=== PATIENT | female | born 1980 | race Caucasian/White ===

== ENCOUNTER → 2017-08-07 14:25 | Outpatient (CLI) | payer MEDICAID, SELFPAY ==
[2017-08-13 11:49] LABS: HPV Reflexed? NOT INDICATED
== END ==
PROVIDERS: Family Provider Nurse Practitioner Women's Health; PCP Nurse Practitioner Women's Health; Visit Provider Nurse Practitioner Women's Health
DX: Z12.4 Encounter for screening for malignant neoplasm of cervix (principal)
CPT/HCPCS: 88175; G0145

== ENCOUNTER 2018-07-15 12:04 | Emergency (ER) | payer BC, MEDICAID, SELFPAY ==
[2018-07-15 12:05] VITALS: BP 127/81; PULSE 86; RESP 18; TEMP 36.6; O2SAT 99; BMI 32.4
--- NOTE | 2018-07-15 12:15 | ED.VISSUMM ---
- ER Visit Summary Date of Service: 07/15/18 Chief Complaint: Rectal bleeding History of Present Illness: The patient is a 38 F with history of insulin-dependent diabetes presents to the emergency department for rectal bleeding. Patient states yesterday, when she moved her bowels, she noted some bright red blood mixed with the stool. She states she also noticed when she wiped. And again today. She does have a history of hemorrhoids. She denies any abdominal pain. She does take a baby aspirin. She denies any nausea or vomiting. She denies any weakness or lightheadedness. She is a poorly controlled diabetic. She states that her blood sugars normally run in the 300s. 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 The patient does have multiple external hemorrhoids with stigmata of recent bleeding. There is no evidence of abscess. There is no active bleeding. Abdomen was soft and nontender. Screening labs were obtained. Patient's hemoglobin is 14.7. She has no evidence of acute blood loss anemia. She was hyperglycemic, but states this is about her baseline. At this time, I do not see indication for inpatient evaluation as the patient is otherwise a symptomatic and has evidence of recently bleeding hemorrhoids. She will continue her local hemorrhoid treatment is now on a stool softener. She was counseled on concerning symptoms and reasons to return. She will be discharged home. Treatment Plan: [] Disposition: Discharge Impression: 1. External hemorrhoids with recent bleeding This note was generated with [employer] dictation software. It may contain incorrect words, spelling, and punctuation that were not noted in review of the chart prior to signing ED Disposition - Plan for ED Patient: Instructions: ED Hematochezia Stable Prescriptions: Docusate Sodium [Colace] 100 mg PO DAILY #20 cap Referrals: Jodie Ojeda NP-C [Nurse Practitioner] -
[2018-07-15 12:38] LABS: Absolute Lymphocyte Count 1.49 X10^3/ul (0.83-4.51); Absolute Neutrophil Count 3.2 X10^3/uL (2.0-7.7); Basophil# 0.03 X10^3/uL; Basophil% 0.6 % (0-1); Eosinophil# 0.11 X10^3/uL; Eosinophils% 2.1 % (0-5); Hematocrit 44.3 % (37-47); Hemoglobin 14.7 g/dl (12.0-15.0); Lymphocyte # 1.49 X10^3/ul (4.0); Lymphocyte % 28.1 % (19-41); Mean Corp Hgb Conc 33.2 g/gl (32-36); Mean Corpuscular Hgb 30.7 pg (27.0-32.0); Mean Corpuscular Volume 92.5 fL (81-99); Mean Platelet Vol. 11.6 fl (6.2-12.0); Monocyte# 0.43 X10^3/uL; Monocyte% 8.1 % (0-10); Neutrophil # 3.23 X10^3/uL (2.7-7.7); Neutrophil % 60.7 % (47-70); Platelet Count 280 K/mm3 (150-450); RBC Distribution Width CV 12.7 % (11.6-14.6); RBC Distribution Width SD 42.3 fl (35.1-43.9); Red Blood Count 4.79 M/mm3 (4.2-5.4); White Blood Count 5.3 K/mm3 (4.4-11.0)
[2018-07-15 12:39] LABS: POSITIVE COUNT NO; POSITIVE DIFFERENTIAL NO; POSITIVE MORPHOLOGY NO
[2018-07-15 12:55] LABS: ALB/GLOB Ratio 0.7 RATIO (0.9-2.4); AST(SGOT) 28 U/L (15-37); Alanine Aminotransfer ALT/SGPT 36 U/L (13-56); Alkaline Phosphatase 99 U/L (45-117); Anion Gap 8 (5-15); BUN 10 mg/dL (7-18); BUN/Creat Ratio 14.9 RATIO (10-20); Calcium,Total 8.3 mg/dL (8.5-10.1); Chloride 98 mmol/L (98-107); Creatinine, Serum 0.67 mg/dL (0.55-1.02); EST Glomerular Filtration Rate 103 mL/min (>60); Est Glom Filt Rate - Afr Amer 125 mL/min (>60); Estimated Creatinine Clearance 104.49 ml/min; Globulin 4.1 g/dL (2.2-4.2); Glucose 361 mg/dL (74-106); Potassium 4.2 mmol/L (3.5-5.1); Protein, Total 7.1 g/dL (6.4-8.2); Sodium Level 136 mmol/L (136-145)
[2018-07-15] MEDS: 0.9% Normal Saline 1,000 ML 1000 ML IV (12:58)
--- NOTE | 2018-07-15 13:43 | ED.RN ---
IV DC'ED, CATHETER INTACT, SMALL GAUZE DRESSING PLACED. DISCHARGE INSTRUCTIONS GIVEN TO AND REVIEWED WITH PATIENT, PATIENT DENIES QUESTIONS OR CONCERNS AND VOICES UNDERSTANDING OF DISCHARGE INSTRUCTIONS. PT AMBULATES OUT OF ROOM WITHOUT DIFFICULTY.
== END 2018-07-15 13:44 | disposition home or self-care (01) ==
LOC: ED 12:38
PROVIDERS: Emergency Provider Emergency Medicine; Family Provider Family Medicine; PCP Family Medicine
DX: K64.4 Residual hemorrhoidal skin tags (principal); E11.9 Type 2 diabetes mellitus without complications; Z79.4 Long term (current) use of insulin; Z79.82 Long term (current) use of aspirin
CPT/HCPCS: 80053; 85025; 96360; 99283; J7030; A4216

== ENCOUNTER 2018-08-26 17:15 | Emergency (ER) | payer BC, MEDICAID, SELFPAY ==
[2018-08-26 17:16] VITALS: BP 140/81; PULSE 105; RESP 15; TEMP 37.2; O2SAT 98; BMI 31.9
--- NOTE | 2018-08-26 17:35 | ED.VISSUMM ---
- ER Visit Summary Date of Service: 08/26/18 Chief Complaint: Constipation, back pain, high blood sugar History of Present Illness: The patient is a 38 F with a 3 or 4-day history of low back pain, worse when she bends forward. She denies any known injury. She is also complaining of constipation and states she is only passing small pellets of stool. She has had similar problems in the past. She is currently taking stool softeners without improvement. She was seen in urgent care earlier today and given nitrofurantoin for a UTI. She is only had one dose. She denies dysuria or frequency. She states her blood sugars have been running high, around 360. She typically runs between 200 and 300. Physical Examination: Vital signs unremarkable. Patient sitting upright in bed no acute distress. Head neck examination normal. Heart is regular rate and rhythm. Lung sounds clear. Abdomen is soft with mild suprapubic tenderness. No guarding or rebound. Back examination was mild tenderness in the lumbar paraspinals. Neuro exam is normal. Test Results: CBC reveals normal white count. Hemoglobin is concentrated at 15.8. Chemistry studies reveal glucose of 385, sodium of 129, chloride of 95. Corrected sodium because of her blood sugar is 133. Urinalysis shows greater than 100 white cells with 0 bacteria and 50 ketones. There is significant glucose noted in her urine. KUB shows no bowel obstruction. There is evidence of constipation. Emergency Department Course and Treatment: Patient was given 2 L of IV fluid along with Toradol. Repeat blood sugar is currently 309. Patient will continue her diabetes regimen at home. She will continue the nitrofurantoin she was given at urgent care. She will be written for mag citrate to treat her constipation. Treatment Plan: [] Disposition: Discharge Impression: 1. Constipation 2. Hyperglycemia This note was generated with [employer] dictation software. It may contain incorrect words, spelling, and punctuation that were not noted in review of the chart prior to signing ED Disposition - Plan for ED Patient: Referrals: Fernando Jenkins MD [Primary Care Provider] -
[2018-08-26] MEDS: Ketorolac 30 MG/ML Syringe IV (17:53)
[2018-08-26] MEDS: 0.9% Normal Saline 1,000 ML 1000 ML IV (17:53)
[2018-08-26 17:58] LABS: Bacteria 0 SEEN /hpf (None Seen); Mucous, Urine 0 SEEN /hpf (<or=2+); Squamous Epithelial Cells - UA 0 SEEN /hpf (5-10)
[2018-08-26 18:02] LABS: Color, Urine Yellow (Yellow); Glucose, Dipstick 1000 mg/dl (Normal); Ketone-Dipstick 50 mg/dl (Negative); Leukocyte Esterase-Dipstick 500 /ul (Negative); Nitrite-Dipstick Negative (Negative); Occult Blood-Urine 150 /ul (Negative); Protein-Dipstick 30 mg/dl (Negative); Specific Gravity, Urine 1.005 (1.002-1.030); Urine Bilirubin Dipstick Negative (Negative); Urine Clarity Cloudy (Clear); Urine Urobilinogen Normal (Normal)
--- NOTE | 2018-08-26 18:03 | RAD_ITS ---
STUDY: X-RAY - ABDOMEN/PELVIS REASON FOR EXAM: Female, 38 years old. Abdominal pain TECHNIQUE: Two AP supine views of the abdomen and pelvis. COMPARISON: None. FINDINGS: There is no bowel obstruction. There is a large amount of stool in the colon, consistent with constipation. There are surgical clips noted in the pelvis which is likely due to prior tubal ligation. The visualized osseous structures are within normal limits. RAD/Abdomen Single View IMPRESSION: No bowel obstruction. Constipation. Electronically Signed: Marek Benson, at 18:29 EDT Tel , Service support ,
[2018-08-26 18:10] LABS: Absolute Lymphocyte Count 0.58 X10^3/ul (0.83-4.51); Absolute Neutrophil Count 7.1 X10^3/uL (2.0-7.7); Basophil# 0.02 X10^3/uL; Basophil% 0.2 % (0-1); Eosinophil# 0.02 X10^3/uL; Eosinophils% 0.2 % (0-5); Hematocrit 46.7 % (37-47); Hemoglobin 15.8 g/dl (12.0-15.0); Lymphocyte # 0.58 X10^3/ul (4.0); Lymphocyte % 6.8 % (19-41); Mean Corp Hgb Conc 33.8 g/gl (32-36); Mean Corpuscular Hgb 31.4 pg (27.0-32.0); Mean Corpuscular Volume 92.8 fL (81-99); Mean Platelet Vol. 11.9 fl (6.2-12.0); Monocyte# 0.79 X10^3/uL; Monocyte% 9.3 % (0-10); Neutrophil # 7.06 X10^3/uL (2.7-7.7); Neutrophil % 83.3 % (47-70); Platelet Count 307 K/mm3 (150-450); RBC Distribution Width CV 13.1 % (11.6-14.6); RBC Distribution Width SD 43.5 fl (35.1-43.9); Red Blood Count 5.03 M/mm3 (4.2-5.4); White Blood Count 8.5 K/mm3 (4.4-11.0)
[2018-08-26 18:11] LABS: Differential Indicated SCAN CRITERIA MET; POSITIVE COUNT NO; POSITIVE DIFFERENTIAL YES; POSITIVE MORPHOLOGY NO
[2018-08-26 18:16] LABS: Red Blood Cells-Urine 0-5 SEEN /hpf (0-5); White Blood Cells >100 SEEN /hpf (0-5)
[2018-08-26 18:19] LABS: Anion Gap 5 (5-15); BUN 7 mg/dL (7-18); BUN/Creat Ratio 8.5 RATIO (10-20); Chloride 95 mmol/L (98-107); Creatinine, Serum 0.82 mg/dL (0.55-1.02); EST Glomerular Filtration Rate 82 mL/min (>60); Est Glom Filt Rate - Afr Amer 99 mL/min (>60); Estimated Creatinine Clearance 85.37 ml/min; Glucose 385 mg/dL (74-106); Sodium Level 129 mmol/L (136-145)
[2018-08-26 18:31] LABS: Anisocytosis RARE; Macrocytosis RARE; Platelet Estimate ADEQUATE (ADEQ)
[2018-08-26] MEDS: 0.9% Normal Saline 1,000 ML 999 ML IV (19:19)
[2018-08-26 20:16] LABS: Bedside Glucose 309 mg/dL (70-110)
--- NOTE | 2018-08-26 20:20 | ED.DEP ---
ED Disposition - Plan for ED Patient: Disposition: Home or Assisted Living Instructions: ED Constipation, ED Hyperglycemia Diabetic Prescriptions: Magnesium Citrate [Citrate Of Magnesia] 150 ml PO Q6H PRN PRN #300 ml PRN Reason: Constipation Referrals: Fernando Jenkins MD [Primary Care Provider] - 1 Week
[2018-08-26 20:39] VITALS: PULSE 102; RESP 16; O2SAT 94
== END 2018-08-26 20:39 | disposition home or self-care (01) ==
PROVIDERS: Emergency Provider Emergency Medicine; Family Provider Family Medicine; PCP Family Medicine
DX: K59.00 Constipation, unspecified (principal); E11.65 Type 2 diabetes mellitus with hyperglycemia; Z79.4 Long term (current) use of insulin; N39.0 Urinary tract infection, site not specified
CPT/HCPCS: 74018; 80048; 81001; 82962; 85025; 87086; 87088; 96361; 96374; 99284; J7030

== ENCOUNTER 2018-09-17 19:09 | Emergency (ER) | payer BC, MEDICAID, SELFPAY ==
[2018-09-17 19:09] VITALS: BP 114/77; PULSE 109; RESP 16; TEMP 36.1; O2SAT 98; BMI 31.1
--- NOTE | 2018-09-17 19:33 | CT_ITS ---
STUDY: CT ABDOMEN AND PELVIS WITH CONTRAST REASON FOR EXAM: Female, 38 years old. Nausea, vomiting, diarrhea and abdominal pain. Prior surgical history of cholecystectomy and 3 C-sections. RADIATION DOSAGE (If Supplied By Facility): CTDIvol = ( 19.82 ) mGy, DLP = ( 1307.55 ) mGycm TECHNIQUE: Transaxial images were obtained from the dome of the diaphragm to the symphysis pubis without oral contrast. 100ml IV Isovue 300 was administered. Sagittal and coronal images were reconstructed. Individualized dose optimization techniques were used for this CT. COMPARISON: None. FINDINGS: Minimal bibasilar atelectasis. The visualized portions of the heart are within normal limits. Normal liver. Gallbladder absent. There are multiple benign calcified granulomata of the spleen. Normal pancreas. Normal bilateral adrenal glands. Normal right kidney. Subcentimeter cyst of the lower pole of the left kidney. Otherwise normal left kidney. Normal visualized stomach. Normal small intestine. Normal colon. The appendix is visualized and appears normal. Normal abdominal aorta. Normal inferior vena cava. Normal retroperitoneum. Nondistended urinary bladder. Status post tubal ligation. Follicular cysts of the ovaries bilaterally. Small fatty umbilical hernia. There are diffuse degenerative changes of the visualized lumbar spine. CT/Abdomen/Pelvis W IV Cont ONLY IMPRESSION: No acute bowel related findings. Negative for evidence of bowel perforation, obstruction or inflammatory bowel changes. A normal appendix is identified. Status post tubal ligation without abnormality of the uterus. Follicular cysts of the ovaries bilaterally. Negative for adnexal mass or free fluid. Simple cyst of the left kidney. Otherwise normal left kidney and right kidney. Status post cholecystectomy without dilatation of the common bile duct or intrahepatic bile ducts. Unremarkable liver and pancreas. Calcified granuloma but normal sized spleen. Electronically Signed: Maribel Mann MD at 21:06 EDT , Service support ,
--- NOTE | 2018-09-17 19:36 | ED.DCSUM_ITS ---
- ER Visit Summary Date of Service: 09/17/18 Chief Complaint: Cough, abdominal pain and diarrhea History of Present Illness: The patient is a 38 F who presents for 3 weeks of a cough, now with 2 weeks of diarrhea and posttussive emesis. Patient presents today for these complaints because she is also been having abdominal pain, went to urgent care because of the cough, and was referred to the emergency department. Patient states she has had intermittent abdominal pain for months. It is mainly in the left lower quadrant some in the right lower quadrant. Patient has been coughing for 3 weeks with now posttussive emesis. Patient has no vomiting without coughing first. She is also been having diarrhea for 2 weeks. Patient denies any fever, chest pain, shortness of breath, or other symptoms. No urinary symptoms. Patient has diabetes and states her blood sugars normally in the 300s and poorly controlled. She has history of cholecystectomy and delivery x3. She denies smoking tobacco. She has been using [id number] antitussives without relief. Physical Examination: Vital signs: afebrile, hemodynamically stable, no hypoxia on room air General: well nourished, well developed, in no distress Skin: warm, dry, no rash, no pallor HEENT: normocephalic and atraumatic; PERRL, EOMI, moist mucous membranes Cardiovascular: regular rate and rhythm without murmurs, no peripheral edema, 2+ pulses all distal extremities Respiratory: No increased work of breathing, lungs are clear to auscultation bilaterally, no rales, rhonchi or wheezing Abdominal: Abdomen is soft, tender in the left lower quadrant with normoactive bowel sounds, no guarding or rebound, no masses MSK: Moves all extremities, no deformities, normal strength Neuro: Awake and alert, oriented ?4. No facial droop, sensation and motor function intact and symmetric Test Results: Abnormal Lab Results 09/17/18 09/17/18 09/17/18 19:50 19:55 19:55 WBC 11.4 H RBC 4.62 Hgb 14.2 Hct 41.7 MCV 90.3 MCH 30.7 MCHC 34.1 RDW 13.3 RDW Differential 43.6 Plt Count 435 MPV 10.7 Immature Gran % (Auto) 0.300 Neut % (Auto) 87.8 H Lymph % (Auto) 6.5 L [place] % (Auto) 4.9 Eos % (Auto) 0.3 Baso % (Auto) 0.2 Absolute Neuts (auto) 10.0 H Absolute Lymphs (auto) 0.74 L Total Counted Not Reportable Sodium 133 L Potassium 3.7 Chloride 94 L Carbon Dioxide 33.0 H Anion Gap 6 BUN 6 L Creatinine 0.77 Estim Creat Clear Calc 90.92 Est GFR (MDRD) Af Amer 107 Est GFR (MDRD) Non-Af 89 BUN/Creatinine Ratio 7.8 L Glucose 406 H Calcium 8.9 Total Bilirubin 0.70 AST 16 ALT 20 Alkaline Phosphatase 122 H Total Protein 7.9 Albumin 3.0 L Globulin 4.9 H Albumin/Globulin Ratio 0.6 L Serum , Qual Urine Color Urine Clarity Urine pH Ur Specific [place] Urine Protein Urine Glucose (UA) Urine Ketones Urine Occult Blood Urine Nitrite Urine Bilirubin Urine Urobilinogen Ur Leukocyte Esterase Urine RBC Urine WBC Ur Squamous Epith Cells Urine Bacteria Urine Mucus POC Glucose 432 H 09/17/18 09/17/18 09/17/18 19:55 20:30 22:33 WBC RBC Hgb Hct MCV MCH MCHC RDW RDW Differential Plt Count MPV Immature Gran % (Auto) Neut % (Auto) Lymph % (Auto) [place] % (Auto) Eos % (Auto) Baso % (Auto) Absolute Neuts (auto) Absolute Lymphs (auto) Total Counted Sodium Potassium Chloride Carbon Dioxide Anion Gap BUN Creatinine Estim Creat Clear Calc Est GFR (MDRD) Af Amer Est GFR (MDRD) Non-Af BUN/Creatinine Ratio Glucose Calcium Total Bilirubin AST ALT Alkaline Phosphatase Total Protein Albumin Globulin Albumin/Globulin Ratio Serum , Qual NEGATIVE Urine Color Yellow Urine Clarity Clear Urine pH 6.0 Ur Specific [place] 1.010 Urine Protein Negative Urine Glucose (UA) 1000 H Urine Ketones Negative Urine Occult Blood 10 H Urine Nitrite Negative Urine Bilirubin Negative Urine Urobilinogen Normal Ur Leukocyte Esterase 25 H Urine RBC 0 SEEN Urine WBC 10-25 SEEN Ur Squamous Epith Cells 0-5 SEEN Urine Bacteria RARE Urine Mucus 0 SEEN POC Glucose 352 H Clinical Impression(s) from Imaging Studies Abdomen/Pelvis CT 09/17/18 19:33 IMPRESSION: No acute bowel related findings. Negative for evidence of bowel perforation, obstruction or inflammatory bowel changes. A normal appendix is identified. Status post tubal ligation without abnormality of the uterus. Follicular cysts of the ovaries bilaterally. Negative for adnexal mass or free fluid. Simple cyst of the left kidney. Otherwise normal left kidney and right kidney. Status post cholecystectomy without dilatation of the common bile duct or intrahepatic bile ducts. Unremarkable liver and pancreas. Calcified granuloma but normal sized spleen. Electronically Signed: Maribel Mann MD at 21:06 EDT , Service support , Chest X-Ray 09/17/18 20:53 IMPRESSION: Normal x-ray examination of the chest. Electronically Signed: Maribel Mann MD at 21:07 EDT , Service support , Medications Given Discontinued Medications Sodium Chloride () 1,000 mls @ 1,000 mls/hr IV .Q1H ONE Stop: 09/17/18 20:32 Last Admin: 09/17/18 20:21 Dose: 1,000 mls/hr Insulin Human Lispro (Humalog Kwikpen (Bkc)) 10 unit SC X1 ONE Stop: 09/17/18 21:30 Last Admin: 09/17/18 22:04 Dose: 10 units Ketorolac Tromethamine (Toradol) 15 mg IV X1 ONE Stop: 09/17/18 19:34 Last Admin: 09/17/18 20:21 Dose: 15 mg Ondansetron HCl (Zofran) 4 mg IV X1 ONE Stop: 09/17/18 19:34 Last Admin: 09/17/18 20:21 Dose: 4 mg Emergency Department Course and Treatment: Because of patient's complaints and the fact she is diabetic, workup was performed to make sure this is not a hyperglycemic crisis. Patient has not had a CT of the abdomen and pelvis here to evaluate for diverticulitis or other acute process, thus one was ordered. Chest x-ray to look for pneumonia. Patient was given IV fluids, Zofran and Toradol for symptom relief. Patient's labs were remarkable only for elevated glucose of 406. Patient had no decreased bicarb or increased anion gap that would be concerning for DKA. Urine was negative for ketones. negative. CT of the abdomen and pelvis showed no acute process to explain her abdominal pain. Patient was given subcutaneous insulin for her hyperglycemia and had improvement of her blood sugar on reevaluation. Patient had improvement of her symptoms with the pain and nausea medications. Patient was counseled to work on better glycemic control, as her chronically high blood sugars will cause serious health consequences down the road for her. Patient states she will try. Patient was discharged home in improved condition. Treatment Plan: [] Disposition: [] Impression: Abdominal pain, hyperglycemia, poorly controlled diabetes This note was generated with [employer] dictation software. It may contain incorrect words, spelling, and punctuation that were not noted in review of the chart prior to signing ED Disposition - Plan for ED Patient: Disposition: Home or Assisted Living Instructions: ED Abdominal Pain Unkn Cause, ED Hyperglycemia Diabetic Prescriptions: Benzonatate [Tessalon Perle] 100 mg PO 4X/DAY PRN PRN #15 cap PRN Reason: Cough Referrals: Fernando Jenkins MD [Primary Care Provider] - 3-5 Days if not improving Additional Instructions: Please take your insulin as directed by your doctor to help control your diabetes. If you have any worsening of your condition or any new concerning symptoms, please return immediately to the emergency department for another evaluation.
[2018-09-17 19:56] LABS: Bedside Glucose 432 mg/dL (70-110)
[2018-09-17 20:09] LABS: Absolute Lymphocyte Count 0.74 X10^3/ul (0.83-4.51); Basophil# 0.02 X10^3/uL; Basophil% 0.2 % (0-1); Eosinophil# 0.03 X10^3/uL; Eosinophils% 0.3 % (0-5); Hematocrit 41.7 % (37-47); Hemoglobin 14.2 g/dl (12.0-15.0); Lymphocyte # 0.74 X10^3/ul (4.0); Lymphocyte % 6.5 % (19-41); Mean Corp Hgb Conc 34.1 g/gl (32-36); Mean Corpuscular Hgb 30.7 pg (27.0-32.0); Mean Corpuscular Volume 90.3 fL (81-99); Mean Platelet Vol. 10.7 fl (6.2-12.0); Monocyte# 0.56 X10^3/uL; Monocyte% 4.9 % (0-10); Neutrophil # 9.99 X10^3/uL (2.7-7.7); Neutrophil % 87.8 % (47-70); Platelet Count 435 K/mm3 (150-450); RBC Distribution Width CV 13.3 % (11.6-14.6); RBC Distribution Width SD 43.6 fl (35.1-43.9); Red Blood Count 4.62 M/mm3 (4.2-5.4); White Blood Count 11.4 K/mm3 (4.4-11.0)
[2018-09-17 20:10] LABS: POSITIVE COUNT NO; POSITIVE DIFFERENTIAL NO; POSITIVE MORPHOLOGY NO
[2018-09-17] MEDS: 0.9% Normal Saline 1,000 ML 1000 ML IV (20:21)
[2018-09-17] MEDS: Ondansetron 4 MG/2 ML Vial IV (20:21)
[2018-09-17] MEDS: Ketorolac 30 MG/ML Syringe 15 MG IV (20:21)
[2018-09-17 20:23] LABS: ALB/GLOB Ratio 0.6 RATIO (0.9-2.4); AST(SGOT) 16 U/L (15-37); Alanine Aminotransfer ALT/SGPT 20 U/L (13-56); Alkaline Phosphatase 122 U/L (45-117); Anion Gap 6 (5-15); BUN 6 mg/dL (7-18); BUN/Creat Ratio 7.8 RATIO (10-20); Calcium,Total 8.9 mg/dL (8.5-10.1); Chloride 94 mmol/L (98-107); Creatinine, Serum 0.77 mg/dL (0.55-1.02); EST Glomerular Filtration Rate 89 mL/min (>60); Est Glom Filt Rate - Afr Amer 107 mL/min (>60); Estimated Creatinine Clearance 90.92 ml/min; Globulin 4.9 g/dL (2.2-4.2); Glucose 406 mg/dL (74-106); Potassium 3.7 mmol/L (3.5-5.1); Protein, Total 7.9 g/dL (6.4-8.2); Sodium Level 133 mmol/L (136-145)
[2018-09-17 20:25] LABS: Pregnancy, Serum, hCG Quali. NEGATIVE Negative (0-9 Nonpreg)
[2018-09-17 20:40] LABS: Mucous, Urine 0 SEEN /hpf (<or=2+); Red Blood Cells-Urine 0 SEEN /hpf (0-5)
--- NOTE | 2018-09-17 20:53 | RAD_ITS ---
STUDY: X-RAY CHEST REASON FOR EXAM: Female, 38 years old. Cough. TECHNIQUE: 2 views COMPARISON: None. FINDINGS: The lungs are clear and expanded. There is no demonstrated pleural abnormality. Normal size heart. Normal mediastinum and sharon. Normal visualized pulmonary arteries. Normal visualized aortic arch and descending thoracic aorta. Normal visualized thoracic spine. Normal visualized ribs, clavicles, and shoulders. There is no demonstrated abnormality of the visualized soft tissue structures of the upper abdomen. RAD/Chest PA and Lateral IMPRESSION: Normal x-ray examination of the chest. Electronically Signed: Maribel Mann MD at 21:07 EDT , Service support ,
[2018-09-17 21:17] LABS: Color, Urine Yellow (Yellow); Glucose, Dipstick 1000 mg/dl (Normal); Ketone-Dipstick Negative (Negative); Leukocyte Esterase-Dipstick 25 /ul (Negative); Nitrite-Dipstick Negative (Negative); Occult Blood-Urine 10 /ul (Negative); Protein-Dipstick Negative (Negative); Urine Bilirubin Dipstick Negative (Negative); Urine Clarity Clear (Clear); Urine Urobilinogen Normal (Normal)
[2018-09-17 21:38] LABS: White Blood Cells 10-25 SEEN /hpf (0-5)
[2018-09-17 21:39] LABS: Bacteria RARE /hpf (None Seen); Squamous Epithelial Cells - UA 0-5 SEEN /hpf (5-10)
[2018-09-17] MEDS: Insulin Lispro 100 UNIT/ML INSULN.PEN 10 UNIT SC (22:04)
[2018-09-17 22:11] VITALS: BP 124/79; PULSE 89; RESP 18; O2SAT 96
[2018-09-17 22:41] LABS: Bedside Glucose 352 mg/dL (70-110)
[2018-09-17 22:42] VITALS: BP 134/78; PULSE 87; RESP 16; O2SAT 97
== END 2018-09-17 22:43 | disposition home or self-care (01) ==
PROVIDERS: Emergency Provider Emergency Medicine; Family Provider Family Medicine; PCP Family Medicine
DX: R10.32 Left lower quadrant pain (principal); E10.65 Type 1 diabetes mellitus with hyperglycemia; Z79.4 Long term (current) use of insulin; Z79.84 Long term (current) use of oral hypoglycemic drugs; R05 Cough
CPT/HCPCS: 71046; 74177; 80053; 81001; 82962; 84703; 85025; 96361; 96374; 96375; 99283; J7030; Q9967; J2405

== ENCOUNTER 2019-05-22 22:58 | Emergency (ER) | payer BC, OTHER, MEDICAID, SELFPAY ==
[2019-05-22 23:00] VITALS: BP 112/74; PULSE 99; RESP 17; TEMP 36.5; O2SAT 97; BMI 32.9
[2019-05-22 23:16] LABS: Bedside Glucose 437 mg/dL (70-110)
--- NOTE | 2019-05-22 23:20 | ED.VIS.GEN ---
History of Present Illness Chief Complaint: Hyperglycemia Narrative: Patient is a 38-year-old female who family called EMS due to alcohol intoxication. She was drinking vodka with cranberry juice. She was noted to be hyperglycemic. Patient actually has no complaints at this time. She denies any nausea vomiting. Past Medical History - Allergies and Home Meds Allergies/Adverse Reactions: Allergies Sulfa (Sulfonamide Antibiotics) Allergy (Verified 05/22/19 23:06) Hives Primary Care Physician: Fernando Jenkins MD [Primary Care Provider] - Past Medical History: - - Insulin-dependent diabetes Smoking Status: Never smoker Review of Systems All systems negative except as indicated General: Denies: Fever Eyes: Denies: Visual changes - bilaterally ENT: Denies: Bilateral ear pain Cardiovascular: Denies: Chest pain Respiratory: Denies: Dyspnea Gastrointestinal: Denies: Nausea, Vomiting Musculoskeletal: Denies: Myalgias, Arthralgias Skin: Denies: Rash Neurological: Reports: - - Tingling in hands and feet related to peripheral neuropathy. Denies: Headache Allergy: Denies: Uticaria Physical Exam Vital Signs/Narrative: Vital Signs Temp Pulse Resp BP Pulse Ox 05/22/19 23:00 97.7 F L 99 17 112/74 97 Inital Vital Signs reviewed: Yes General: Well nourished, Well developed Head: Normocephalic Eyes: EOMI ENT: Moist mucous membranes Neck: Supple Cardiovascular: Regular rate, Regular rhythm Respiratory: No distress, CTA bilaterally Abdomen: Soft, Nontender, Nondistended Skin: Normal color Neurological: Alert Psychological: Normal affect Diagnostic/Tx/Re-eval Laboratory Results 05/22/19 05/22/19 05/23/19 23:04 23:29 00:27 Sodium 140 Potassium 3.8 Chloride 104 Carbon Dioxide 24.0 Anion Gap 12 BUN 9 Creatinine 0.73 Estim Creat Clear Calc 95.90 Est GFR (MDRD) Af Amer 114 Est GFR (MDRD) Non-Af 94 BUN/Creatinine Ratio 12.4 Glucose 463 H* Calcium 8.0 L POC Glucose 437 H 364 H - Medical Decision Making Patient initially had no complaints although she did later complain of nausea and was given Zofran. Initial glucose was 463. Patient was treated with IV fluids and subcutaneous insulin and on recheck is 306. At this point I do believe she can be safely discharged home. ED Disposition - Plan for ED Patient: Disposition: Home or Assisted Living Diagnosis: Alcohol intoxication, Diabetes mellitus with hyperglycemia Instructions: ED Diabetic Hyperglycemia, Alcohol Intoxication Referrals: Fernando Jenkins MD [Primary Care Provider] -
[2019-05-22] MEDS: 0.9% Normal Saline 1,000 ML 999 ML IV ×2 (23:35→23:55)
[2019-05-22] MEDS: Ondansetron 4 MG/2 ML Vial IV (23:55)
[2019-05-22 23:58] LABS: Anion Gap 12 (5-15); BUN 9 mg/dL (7-18); BUN/Creat Ratio 12.4 RATIO (10-20); Chloride 104 mmol/L (98-107); Creatinine, Serum 0.73 mg/dL (0.55-1.02); EST Glomerular Filtration Rate 94 mL/min (>60); Est Glom Filt Rate - Afr Amer 114 mL/min (>60); Potassium 3.8 mmol/L (3.5-5.1); Sodium Level 140 mmol/L (136-145)
[2019-05-23] LABS: Glucose 463 mg/dL (74-106)
[2019-05-23 00:35] LABS: Bedside Glucose 364 mg/dL (70-110)
[2019-05-23] MEDS: Insulin Lispro 100 UNIT/ML INSULN.PEN 12 UNIT SC (01:00)
[2019-05-23 01:55] VITALS: BP 113/82; PULSE 96; RESP 20; O2SAT 99
[2019-05-23 01:56] LABS: Bedside Glucose 304 mg/dL (70-110)
== END 2019-05-23 01:56 | disposition home or self-care (01) ==
PROVIDERS: Emergency Provider Emergency Medicine; Family Provider Family Medicine; PCP Family Medicine
DX: E11.65 Type 2 diabetes mellitus with hyperglycemia (principal); Y90.9 Presence of alcohol in blood, level not specified; F10.129 Alcohol abuse with intoxication, unspecified; Z79.4 Long term (current) use of insulin; Z79.84 Long term (current) use of oral hypoglycemic drugs
CPT/HCPCS: 80048; 82962; 96361; 96372; 96374; 99285; J7030; J2405

== ENCOUNTER 2019-08-20 00:13 | Emergency (ER) | payer OTHER, MEDICAID, SELFPAY ==
[2019-08-20 00:13] VITALS: BP 136/82; PULSE 109; RESP 18; TEMP 37.2; O2SAT 99; BMI 33.0
--- NOTE | 2019-08-20 00:21 | RAD_ITS ---
STUDY: X-RAY CHEST REASON FOR EXAM: Female, 39 years old. COUGH X 1 WEEK TECHNIQUE: PA and lateral COMPARISON: 09/17/2018 FINDINGS: The lungs are clear and expanded. There is no demonstrated pleural abnormality. Normal size heart. Normal mediastinum and sharon. Normal visualized pulmonary arteries. Normal visualized aortic arch and descending thoracic aorta. Normal visualized thoracic spine. Normal visualized ribs, clavicles, and shoulders. There is no demonstrated abnormality of the visualized soft tissue structures of the upper abdomen. RAD/Chest PA and Lateral IMPRESSION: Negative x-ray examination of the chest. Electronically Signed: Izaiah Collins, at 1:44 EDT Tel , Service support ,
[2019-08-20] MEDS: Albuterol 2.5 MG/3 ML VIAL.NEB. INHALATION (00:32)
[2019-08-20 00:36] VITALS: PULSE 115; RESP 18; O2SAT 100
[2019-08-20] MEDS: Ondansetron ODT 4 MG Tablet 8 MG PO (01:11)
[2019-08-20 01:20] LABS: Bedside Glucose 336 mg/dL (70-110)
--- NOTE | 2019-08-20 01:50 | ED.VISSUMM ---
- ER Visit Summary Date of Service: 08/20/19 Chief Complaint: Cough History of Present Illness: The patient is a 39 F who presents with a cough. Started a week ago. She has had nasal congestion. Her cough was productive but now it is better without production but she is still coughing. No fevers. She has felt sweaty. Her blood glucose was 414 at home. She is a type II diabetic. She did not get a flu shot this year. She is not a smoker. She tried sinus medications, DayQuil/NyQuil and Mucinex without any relief. She denies any sick contacts. No recent travel. Physical Examination: Vital signs reviewed. HEENT exam unremarkable. Heart is regular rate and rhythm without murmurs. Lungs are clear to auscultation. Abdomen is soft and nontender. Extremities reveal no edema. Skin exam normal. Neurologic exam normal. Test Results: Chest x-ray clear. BG [id number] Emergency Department Course and Treatment: Patient was given albuterol. She had some nausea after this so I gave her Zofran. I feel this is likely bronchitis. I will treat her with albuterol and a azithromycin at home. She will follow-up with her PCP. Treatment Plan: [] Disposition: Discharge Impression: Acute bronchitis, nausea This note was generated with [employer] dictation software. It may contain incorrect words, spelling, and punctuation that were not noted in review of the chart prior to signing ED Disposition - Plan for ED Patient: Disposition: Home or Assisted Living Instructions: BRONCHITIS, Antiobiotic Treatment (Adult) Prescriptions: Albuterol Inhaler [Ventolin Hfa] 1 - 2 puff INHALATION Q4H PRN PRN #1 inhaler PRN Reason: Wheezing Transmission Status: Pending to [id number] Azithromycin [Zithromax Z-Ariel] 250 mg PO UD #1 box Transmission Status: Pending to [id number] Referrals: Fernando Jenkins MD [Primary Care Provider] -
[2019-08-20 01:58] VITALS: BP 125/86; PULSE 95; RESP 16; O2SAT 96
== END 2019-08-20 02:01 | disposition home or self-care (01) ==
PROVIDERS: Emergency Provider Emergency Medicine; PCP Family Medicine
DX: J20.9 Acute bronchitis, unspecified (principal); R11.0 Nausea; E11.9 Type 2 diabetes mellitus without complications; Z79.4 Long term (current) use of insulin
CPT/HCPCS: 71046; 82962; 94640; 99282

== ENCOUNTER 2020-01-04 08:15 | Emergency (ER) | payer OTHER, MEDICAID, SELFPAY ==
[2019-09-07 12:42] VITALS: BMI 33.0
[2020-01-04 08:16] VITALS: BP 144/85; PULSE 91; RESP 16; TEMP 36.4; O2SAT 100; BMI 32.3
--- NOTE | 2020-01-04 08:24 | RAD_ITS ---
STUDY: X-RAY - LEFT FOOT CLINICAL: Female, 39 years old. Stepped on a tack over the weekend -- redness and swelling to 2nd toe TECHNIQUE: Three view(s) of the foot. COMPARISON: None. FINDINGS: There is a plantar calcaneal spur. Normal visualized subtalar, talonavicular, calcaneocuboid, tarsal and tarsometatarsal articulations. Normal metatarsi. Normal metatarsophalangeal joint of the great toe. Normal tibial and fibular sesamoid bones. Normal interphalangeal joint of the great toe. Normal phalanges of the great toe. Normal second through fifth metatarsophalangeal joints. Normal interphalangeal joints and phalanges of the lesser toes. The soft tissue structures are unremarkable. No radiopaque foreign body is seen. RAD/Foot min 3 Views IMPRESSION: Plantar spur. Electronically Signed: Ketan Rosenberg, at 9:07 EDT , Service support ,
--- NOTE | 2020-01-04 08:25 | ED.VIS.GEN ---
History of Present Illness Chief Complaint: Lower Extremity Injury Informant: Patient Onset: Days Context: Gradual Onset Timing: Continuous Current Severity: Moderate Maximum Severity: Moderate Narrative: The patient is a 41-year-old female with medical history significant for diabetes and slight neuropathy of the feet presents to the emergency department puncture wound to the left second toe. She states that there was a tach that was stuck in her sandal. She did not notice it until yesterday. She had some mild bleeding from the area. She states today, the toe does have some redness. She denies any streaking. She is not had fever or chills. She states she is otherwise been in her normal state of health. She is unsure of her last tetanus. Prior similar symptoms: No Recent Illness/Hospitalization: No Past Medical History - Allergies and Home Meds Allergies/Adverse Reactions: Allergies Sulfa (Sulfonamide Antibiotics) Allergy (Verified 01/04/20 08:16) Dk Primary Care Physician: Anneliese Gustafson DPM [STAFF PHYSICIAN] - 2 Days for wound check Prior records reviewed: Yes Past Medical History: - - Diabetes, neuropathy Surgical History: noncontributory Smoking Status: Never smoker Review of Systems General: Denies: Chills, Fever, Sweats Eyes: Denies: Visual changes - bilaterally, Diplopia ENT: Denies: Rhinorrhea, Sore throat Cardiovascular: Denies: Chest pain, Palpitations Respiratory: Denies: Dyspnea, Cough, Dyspnea on exertion Gastrointestinal: Denies: Abdominal pain, Nausea, Vomiting, Diarrhea, Melena, Hematochezia Genitourinary: Denies: Dysuria, Hematuria, Frequency Musculoskeletal: Denies: Back pain, Extremity Pain Skin: Denies: Rash, Wounds Neurological: Denies: Headache, Weakness, Numbness Physical Exam Vital Signs/Narrative: Vital Signs Temp Pulse Resp BP Pulse Ox 01/04/20 08:16 97.5 F L 91 16 144/85 H 100 Inital Vital Signs reviewed: Yes General: Well nourished, Well developed, No Acute Distress Head: Normocephalic, Atraumatic Eyes: Perrl, EOMI ENT: Moist mucous membranes, No rhinorrhea Neck: Supple, Nontender Cardiovascular: Regular rate, Regular rhythm, No murmurs Respiratory: No distress, CTA bilaterally, Chest nontender Abdomen: Soft, Nontender, Nondistended, Normal bowel sounds Back: Nontender, Normal Inspection Extremities: No edema, Tenderness - Small puncture wound on the plantar aspect of the left second toe. Minimal erythema. No drainage. No streaking. Normal pulses in the foot. Skin: Normal color, No rash Neurological: Alert, Oriented x3, Cranial nerves II-XII grossly intact, Normal Strength, Normal Sensation Psychological: Normal affect, Normal Mood Diagnostic/Tx/Re-eval Clinical Impression(s) from Imaging Studies Foot X-Ray 01/04/20 08:24 IMPRESSION: Plantar spur. Electronically Signed: Ketan Erikastevenej, at 9:07 EDT , Service support , - Medical Decision Making Patient presents with puncture wound on the plantar aspect of the left second toe. There is minimal erythema. There is no streaking. Pulses are normal. Plain films were obtained. There is no evidence of retained foreign body. The patient's tetanus is updated. The wound was cleaned and dressed. At this point, I am going to cover her with Cipro and Augmentin as she is a diabetic. She will be placed on postoperative shoe. She will be given outpatient podiatry follow-up for wound recheck in 2 days. I did spend time counseling her that that this not improving or worsening prior to that appointment that she should come back to the emergency department. She is comfortable with this plan of care. Impression 1. Puncture wound left second toe with cellulitis ED Disposition - Plan for ED Patient: Instructions: ED Wound Puncture Foot Prescriptions: Amox/Clavulanate Tablet [Augmentin Tablet] 875 mg PO Q12H #20 tab Prescription Printed Ciprofloxacin [Cipro] 500 mg PO BID #6 tab Prescription Printed Referrals: Anneliese Gustafson DPM [STAFF PHYSICIAN] - 2 Days for wound check
[2020-01-04] MEDS: Diphth,Pertuss(Acell),Tet Vac 0.5 ML Vial IM (09:15)
== END 2020-01-04 09:29 | disposition home or self-care (01) ==
LOC: ED 09:09
PROVIDERS: Emergency Provider Emergency Medicine; PCP Family Medicine
DX: S91.135A Puncture wound without foreign body of left lesser toe(s) without damage to nail, initial encounter (principal); L03.032 Cellulitis of left toe; W26.8XXA Contact with other sharp object(s), not elsewhere classified, initial encounter; Y93.9 Activity, unspecified; Y92.9 Unspecified place or not applicable; E11.40 Type 2 diabetes mellitus with diabetic neuropathy, unspecified; Z79.4 Long term (current) use of insulin
CPT/HCPCS: 73630; 90715; 99283

== ENCOUNTER → 2020-03-04 | Outpatient (CLI) | payer BC, MEDICAID, SELFPAY | END | disposition home or self-care (01) | LOC: LABSPEC 09:59 | PROVIDERS: PCP Family Medicine; Referring Provider Family Medicine; Visit Provider Family Medicine | DX: Z20.828 Contact with and (suspected) exposure to other viral communicable diseases (principal); J06.9 Acute upper respiratory infection, unspecified | CPT/HCPCS: 87635; U0003 ==

== ENCOUNTER 2020-05-24 17:03 | Emergency (ER) | payer BC, MEDICAID, SELFPAY ==
[2020-05-24 17:04] VITALS: BP 137/85; PULSE 100; RESP 18; TEMP 36.4; O2SAT 100; BMI 33.0
--- NOTE | 2020-05-24 17:19 | ED.RN ---
THIS NURSE IN THE ROOM FOR DR CHOI TO COMPLETE EXAM
--- NOTE | 2020-05-24 17:23 | ED.VISSUMM ---
- ER Visit Summary Date of Service: 05/24/20 Chief Complaint: Rash History of Present Illness: The patient is a 39 F presents with a rash. She said this for over a month. She has been on amoxicillin as well as doxycycline but is not helping. She does have a history of MRSA. She is also been trying hydrocortisone and antiitch cream without relief. These areas do itch. All over her body. No fevers. She is a type II diabetic. Her blood sugars have been controlled throughout this time. Physical Examination: Vital signs are reviewed. Skin exam reveals scattered scabbed areas throughout the body. There is some mild erythema surrounding these areas, mostly in the intertriginous areas. No petechia or purpura. None are tender to palpation. No abscesses were seen. Test Results: None performed Emergency Department Course and Treatment: Patient is already been covered for MRSA with doxycycline. I wonder if this could be a fungal infection due to her diabetes and preponderance of the rash in intertriginous areas. Patient will be given antifungal cream. She will be given dermatology for follow-up as well. Treatment Plan: [] Disposition: Discharge Impression: Dermatitis This note was generated with [employer] dictation software. It may contain incorrect words, spelling, and punctuation that were not noted in review of the chart prior to signing ED Disposition - Plan for ED Patient: Disposition: Home or Assisted Living Instructions: ED Contact Dermatitis Prescriptions: Nystatin/Triamcin [Nystatin/Triamcinolone Crm] 30 gm TP BID #1 cream.gm. Transmission Status: Pending to [facility]/pharmacy #[id number] Referrals: Fernando Jenkins MD [Primary Care Provider] - Kaye James MD [NON-STAFF] -
== END 2020-05-24 17:37 | disposition home or self-care (01) ==
LOC: ED 17:31
PROVIDERS: Emergency Provider Emergency Medicine; PCP Family Medicine
DX: L30.9 Dermatitis, unspecified (principal); E11.9 Type 2 diabetes mellitus without complications; Z86.14 Personal history of Methicillin resistant Staphylococcus aureus infection; Z79.4 Long term (current) use of insulin
CPT/HCPCS: 99282

== ENCOUNTER 2020-07-07 04:49 | Emergency (ER) | payer BC, MEDICAID, SELFPAY ==
[2020-07-07 04:50] VITALS: BP 113/69; PULSE 84; RESP 16; TEMP 36.8; O2SAT 97; BMI 35.7
--- NOTE | 2020-07-07 05:01 | ED.VIS.GEN ---
History of Present Illness Chief Complaint: Rash Narrative: Patient presents with a rash that she has had for about a month. She is also been on doxycycline for that amount of time. She is on doxycycline for a left foot infection. She has no fevers or chills. The infection is seems to be improving. She has a very itchy rash on her arms legs and trunk. She tells me she could not sleep all night due to the itching. She is a diabetic. She was given hydrocortisone cream by an urgent care but with only minimal relief. Past medical history: Diabetes with a left foot infection and ulcer Medications: Reviewed Social history: Noncontributory Review of systems: All systems negative except as indicated General: Denies: Fever Eyes: Denies: Visual changes - bilaterally ENT: Denies: Rhinorrhea, Sore throat Cardiovascular: Denies: Chest pain Respiratory: Denies: Dyspnea, Cough Gastrointestinal: Denies: Abdominal pain. She does endorse some nausea Genitourinary: Denies: Dysuria Musculoskeletal: Left foot infection as in HPI Skin: Rash as in HPI Neurological: Denies: Headache, no focal weakness Psych: Reports: negative Hematologic: Denies: Easy bruising, Easy bleeding Physical exam General: Well nourished, Well developed, No Acute Distress Head: Normocephalic, Atraumatic Eyes: Conjunctiva not pale ENT: Moist mucous membranes Neck: Supple, Nontender, No lymphadenopathy Cardiovascular: Regular rate, Regular rhythm Respiratory: No distress, CTA bilaterally Abdomen: Soft, Nontender, Nondistended Back: Nontender, Normal Inspection. Negative for: CVA tenderness Extremities: Ulcer on the plantar side of the left foot. There are no signs of cellulitis. Skin: There is diffuse erythematous rash which does seem to have some different stages of healing it is blanching it is on the arms legs and truncal region. Neurological: Alert, Normal Strength, Normal Sensation Psychological: Normal affect Past Medical History - Allergies and Home Meds Allergies/Adverse Reactions: Allergies Sulfa (Sulfonamide Antibiotics) Allergy (Verified 07/07/20 04:56) Hives Primary Care Physician: Fernando Jenkins MD [Primary Care Provider] - Surgical History: noncontributory Smoking Status: Never smoker Physical Exam Vital Signs/Narrative: Vital Signs Temp Pulse Resp BP Pulse Ox 07/07/20 04:50 98.2 F 84 16 113/69 97 Diagnostic/Tx/Re-eval - Medical Decision Making I am wondering if her itchy rash is secondary to the doxycycline. I will stop the doxycycline I will give her a short course of clindamycin until she can see her physician. Otherwise I will give her Vistaril and Zofran for her symptoms. Because she has significant diabetes with an infection in her foot I will not give her steroids. ED Disposition - Plan for ED Patient: Disposition: Home or Assisted Living Diagnosis: Drug reaction Instructions: ED General Allergic Reactions Prescriptions: Clindamycin [Cleocin] 150 mg PO 4X/DAY #28 cap Transmission Status: Pending to [facility]pharmacy #[id number] hydrOXYzine pamoate capsule [Vistaril] 50 mg PO TID PRN PRN #30 cap PRN Reason: Anxiety Transmission Status: Pending to [id number] Ondansetron [Zofran Odt] 4 mg PO Q8H PRN PRN #10 tab PRN Reason: Nausea Transmission Status: Pending to [id number] Referrals: Fernando Jenkins MD [Primary Care Provider] -
== END 2020-07-07 05:43 | disposition home or self-care (01) ==
LOC: ED 05:15
PROVIDERS: Emergency Provider Emergency Medicine; PCP Family Medicine
DX: T65.91XA Toxic effect of unspecified substance, accidental (unintentional), initial encounter (principal)
CPT/HCPCS: 99282

== ENCOUNTER 2020-08-07 17:42 | Emergency (ER) | payer BC, MEDICAID, SELFPAY ==
[2020-08-07 17:43] VITALS: BP 147/95; PULSE 96; RESP 16; TEMP 36.3; O2SAT 97; BMI 32.3
--- NOTE | 2020-08-07 18:18 | ED.VISSUMM ---
- ER Visit Summary Date of Service: 08/07/20 Chief Complaint: Rash History of Present Illness: The patient is a 40 F presenting with rash and right breast redness. She states she has had a rash diffusely for the past couple of months. She is scheduled to see dermatology this week for these symptoms. She states it occasionally itches. She states it comes and goes. She has no known cause. She states over the past 2 days she has had redness to her right breast. She was started on clindamycin. She states it has not worsened but it also has not improved over the past 2 days since starting clindamycin. She does not have a fever. Denies other complaints. Physical Examination: Vitals are stable. Patient is afebrile. Alert no acute distress. HEENT exam is unremarkable. No mucous membrane lesions Neck is supple. Lungs are clear and equal bilaterally. Erythema upper right breast with no fluctuance. Heart is regular rate and rhythm. Abdomen is soft nontender nondistended. Extremities are unremarkable. Skin is warm and dry. Excoriated rash to trunk and lower extremities. No focal neurologic deficit. Remainder of exam is unremarkable. Emergency Department Course and Treatment: Patient states the rash on her trunk and lower extremities started 2 months ago and she has only been on clindamycin for 2 days. She has an appointment with dermatology this week for her rash. She states the redness of her breast has not worsened but just has not resolved. She has 5 days left of this antibiotic course. She was given dose of clindamycin IV. 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 Advised return to ED for worsening complaints. Disposition: Discharge home Impression: Right breast cellulitis, rash This note was generated with [employer] dictation software. It may contain incorrect words, spelling, and punctuation that were not noted in review of the chart prior to signing ED Disposition - Plan for ED Patient: Referrals: Fernando Jenkins MD [Primary Care Provider] -
[2020-08-07 18:47] VITALS: BP 123/79; PULSE 94; RESP 16; TEMP 36.9; O2SAT 98
--- NOTE | 2020-08-07 18:55 | ED.DEP ---
ED Disposition - Plan for ED Patient: Instructions: ED Cellulitis Referrals: Fernando Jenkins MD [Primary Care Provider] -
== END 2020-08-07 19:29 | disposition home or self-care (01) ==
LOC: ED 19:07
PROVIDERS: Emergency Provider Emergency Medicine; PCP Family Medicine
DX: N61.0 Mastitis without abscess (principal); R21 Rash and other nonspecific skin eruption; E11.9 Type 2 diabetes mellitus without complications; Z79.4 Long term (current) use of insulin
CPT/HCPCS: 96365; 99283; J7050; A4216

== ENCOUNTER 2020-08-12 11:40 | Emergency (ER) | payer BC, MEDICAID, SELFPAY ==
[2020-08-12 11:41] VITALS: BP 157/94; PULSE 86; RESP 16; TEMP 36.3; O2SAT 98; BMI 32.3
[2020-08-12 11:53] VITALS: BP 157/94; PULSE 86; RESP 16; TEMP 36.3; O2SAT 98
--- NOTE | 2020-08-12 12:08 | ED.VISSUMM ---
- ER Visit Summary Date of Service: 08/12/20 Chief Complaint: Right breast redness and wound History of Present Illness: The patient is a 40 F who presents with a wound and redness to her right breast. Patient states she has had this for 2 months. Patient was seen here recently and was on clindamycin at that time. Patient was given a dose of IV clindamycin. Patient states she finished the clindamycin. Patient states she followed up with her paster hat lining today. Patient states the paster hat lining thought she still may have MRSA infection in her breast and referred her back to the emergency department. Patient states she had a black scab over the wound on her right breast. Patient states this fell off. Patient states she has been feeling fatigued. Patient admits to some decreased appetite and nausea as well. Patient denies any chest pain or shortness of breath. Patient denies any vomiting. Patient does admit to some urinary frequency. Patient is a diabetic. Physical Examination: Vital signs are stable. Patient is afebrile. Patient is in no acute distress. Oral mucosa is pink and moist. Neck is supple. Trachea is midline. There is no JVD. Heart was regular rate and rhythm. Lungs are clear and equal bilateral. Abdomen is soft. Bowel sounds are normal. There is no tenderness. Extremities are intact. There is no calf tenderness or edema. Cranial nerves II through XII are intact. There are no focal motor or sensory deficits noted. Skin is warm and dry. There is a superficial ulceration over the anterior aspect of the right breast. There is surrounding erythema. There is no purulent discharge or drainage. Test Results: CBC was within normal limits. Comprehensive metabolic profile showed a glucose of 469. Sodium was 131 and chloride was 96. Serum ketones were negative. Anion gap was normal. CO2 was normal. Urinalysis does not show any evidence of urinary tract infection. Emergency Department Course and Treatment: Patient was given a dose of vancomycin here. Patient was given a dose of Humalog. Repeat GGT was obtained and was 331. Patient was given a prescription for clindamycin to take for the next 10 days. Patient was instructed to follow-up with her primary care physician in 5 to 7 days. Patient was instructed to return if worse in any way. Patient understood and was agreeable with the plan. All questions were answered. Disposition: Discharge home Impression: 1. Right breast wound and cellulitis This note was generated with Dragon dictation software. It may contain incorrect words, spelling, and punctuation that were not noted in review of the chart prior to signing ED Disposition - Plan for ED Patient: Disposition: Home or Assisted Living Diagnosis: Wound of right breast, Cellulitis of right breast Instructions: ED Cellulitis Prescriptions: Clindamycin HCl [Cleocin] 300 mg PO Q6H #40 cap Transmission Status: P[id number] Referrals: Fernando Jenkins MD [Primary Care Provider] - 5-7 Days
[2020-08-12] MEDS: 0.9% Normal Saline 1,000 ML 1000 ML IV (12:22)
[2020-08-12 12:28] LABS: Bacteria 0 SEEN /hpf (None Seen); Mucous, Urine 0 SEEN /hpf (<or=2+); Red Blood Cells-Urine 0 SEEN /hpf (0-5); Squamous Epithelial Cells - UA 0 SEEN /hpf (5-10); White Blood Cells 0 SEEN /hpf (0-5)
[2020-08-12 12:31] LABS: Absolute Lymphocyte Count 1.24 X10^3/uL (0.83-4.51); Absolute Neutrophil Count 4.6 X10^3/uL (2.0-7.7); Basophil# 0.08 X10^3/uL; Basophil% 1.2 % (0-1); Eosinophil# 0.31 X10^3/uL; Eosinophils% 4.5 % (0-5); Hematocrit 45.5 % (37-47); Hemoglobin 15.9 g/dL (12.0-15.0); Lymphocyte # 1.24 X10^3/ul (4.0); Mean Corp Hgb Conc 34.9 g/dL (32-36); Mean Corpuscular Hgb 31.7 pg (27.0-32.0); Mean Corpuscular Volume 90.8 fL (81-99); Mean Platelet Vol. 11.7 fl (6.2-12.0); Monocyte# 0.65 X10^3/uL; Monocyte% 9.4 % (0-10); NRBC Flagged by Analyzer 0 % (0-5); Neutrophil # 4.58 X10^3/uL (2.7-7.7); Neutrophil % 66.3 % (47-70); Platelet Count 316 K/mm3 (150-450); RBC Distribution Width CV 15.6 % (11.6-14.6); RBC Distribution Width SD 45.5 fl (35.1-43.9); Red Blood Count 5.01 M/mm3 (4.2-5.4); White Blood Count 6.9 K/mm3 (4.4-11.0)
[2020-08-12 12:32] LABS: Color, Urine Straw (Yellow); Glucose, Dipstick 1000 mg/dl (Normal); Ketone-Dipstick 15 mg/dl (Negative); Leukocyte Esterase-Dipstick Negative /ul (Negative); Nitrite-Dipstick Negative (Negative); Occult Blood-Urine 10 /ul (Negative); Protein-Dipstick Negative (Negative); Specific Gravity, Urine 1.015 (1.002-1.030); Urine Bilirubin Dipstick Negative (Negative); Urine Clarity Sl. Cloudy (Clear); Urine Urobilinogen Normal (Normal)
[2020-08-12 12:43] VITALS: BP 151/90; PULSE 87; RESP 18; TEMP 36.5; O2SAT 100
[2020-08-12 12:54] LABS: ALB/GLOB Ratio 0.7 RATIO (0.9-2.4); AST(SGOT) 22 U/L (15-37); Alanine Aminotransfer ALT/SGPT 30 U/L (13-56); Albumin, Serum 3.4 g/dL (3.2-5.0); Alkaline Phosphatase 134 U/L (45-117); Anion Gap 6 (5-15); BUN 15 mg/dL (7-18); BUN/Creat Ratio 16.1 RATIO (10-20); Chloride 96 mmol/L (98-107); Creatinine, Serum 0.93 mg/dL (0.55-1.02); EST Glomerular Filtration Rate 70 mL/min (>60); Est Glom Filt Rate - Afr Amer 85 mL/min (>60); Estimated Creatinine Clearance 73.77 ml/min; Globulin 4.9 g/dL (2.2-4.2); Glucose 469 mg/dL (74-106); Potassium 4.3 mmol/L (3.5-5.1); Protein, Total 8.3 g/dL (6.4-8.2); Sodium Level 131 mmol/L (136-145); Yeast-Urine RARE /hpf (None Seen)
[2020-08-12] MEDS: Insulin Lispro 100 UNIT/ML INSULN.PEN 20 UNIT SC (13:39)
[2020-08-12 13:43] VITALS: BP 149/89; PULSE 81; RESP 18; TEMP 36.6; O2SAT 97
[2020-08-12] MEDS: Vancomycin IV 1,000 MG/200 ML BAG 200 MG IV (13:47)
[2020-08-12 14:46] LABS: Bedside Glucose 331 mg/dL (70-110)
[2020-08-12 15:14] VITALS: BP 134/88; PULSE 83; RESP 15; O2SAT 98
== END 2020-08-12 15:15 | disposition home or self-care (01) ==
PROVIDERS: Emergency Provider Emergency Medicine; PCP Family Medicine
DX: N61.1 Abscess of the breast and nipple (principal); E11.9 Type 2 diabetes mellitus without complications; Z79.4 Long term (current) use of insulin
CPT/HCPCS: 80053; 81001; 82009; 82962; 85025; 87070; 87205; 96361; 96365; 99284; J7030; A4216

== ENCOUNTER 2020-09-04 18:55 | Emergency (ER) | payer BC, MEDICAID, SELFPAY ==
[2020-08-31 09:18] VITALS: BMI 32.3
[2020-09-04 18:56] VITALS: BP 143/81; PULSE 96; RESP 16; TEMP 36.2; O2SAT 99; BMI 35.6
--- NOTE | 2020-09-04 19:34 | ED.VISSUMM ---
- ER Visit Summary Date of Service: 09/04/20 Chief Complaint: Cast too tight and dental pain History of Present Illness: The patient is a 40 F who goes to the [facility] for dentistry. She reports that she has pain in her left maxillary canine that began approximately week ago. Is an aching pain is 10-10 at worst 910 currently. Is worsened by touching it or eating. Is unrelieved with naproxen. She denies any hot or cold sensitivity. She denies any facial swelling. Patient has a history and onset of pain and diabetes mellitus and has ulcers on her right foot. She was seen at the wound clinic and had a cast placed 4 days ago. She reports for the past 2 days the cast had become painful. She complains of pressure that is 9 out of 10 in severity. She has diabetic neuropathy and denies any new numbness in her foot. Physical Examination: Vitals: Stable. Afebrile. Mouth: No trismus. No edema of the floor of the mouth. Pain with percussion of left maxillary canine. There is no focal abscess. General: A&O x 3. NAD. Cardiovascular exam: Regular rate and rhythm, no murmur, rub or gallop. Respiratory exam: Clear to auscultation bilaterally. No wheezes or stridor. Abdominal exam: Soft, nontender, nondistended, normal bowel sounds. No peritoneal signs. Extremity: Short leg cast on the right. After removal of the ulcer on her heel appears to have healed well. As does the ulcer on her second toe.. Emergency Department Course and Treatment: Patient was treated with [place], penicillin, and Zofran. Her OARRS report was negative. Treatment Plan: Patient will be discharged with Somersworth and penicillin. Instructed to follow-up with dentist as soon as possible. She is instructed to follow-up with Dr. Gustafson in the wound clinic as previously scheduled. She already has dressing materials and something to offload the ulcers on her foot in the meantime. She is instructed to follow-up with Dr. Gustafson sooner if needed. Return to the emergency department for any worsening symptoms. Disposition: To home in improved and stable condition. Impression: 1 1. Dental pain. 2. Cast removal. This note was generated with [employer] software. It may contain incorrect words, spelling, and punctuation that were not noted in review of the chart prior to signing ED Disposition - Plan for ED Patient: Instructions: ED Dental Pain Prescriptions: Hydrocodone Bitart/Apap 5-325 [Somersworth 5MG-325MG] 1 tablet PO Q4H PRN PRN 2 Days #10 tablet PRN Reason: Pain Penicillin V Potassium 500 mg PO 4X/DAY #40 tablet Referrals: Dentist,Your [STAFF PHYSICIAN] - As soon as possible Clinic,Wound [None] - Keep Renetta appointment
[2020-09-04 19:50] VITALS: BP 129/86; PULSE 87; RESP 18; TEMP 36.6; O2SAT 95
[2020-09-04] MEDS: HYDROcodone Bitartrate/Apap 5/325 Tablet PO (19:53)
[2020-09-04] MEDS: Ondansetron ODT 4 MG Tablet PO (19:54)
[2020-09-04] MEDS: Penicillin Vk 250 MG Tablet 500 MG PO (19:54)
== END 2020-09-04 19:57 | disposition home or self-care (01) ==
LOC: ED 19:13
PROVIDERS: Emergency Provider Emergency Medicine; PCP Family Medicine
DX: K08.89 Other specified disorders of teeth and supporting structures (principal); E11.40 Type 2 diabetes mellitus with diabetic neuropathy, unspecified; Z79.4 Long term (current) use of insulin; Z46.89 Encounter for fitting and adjustment of other specified devices
CPT/HCPCS: 99283

== ENCOUNTER 2020-09-07 10:00 | Outpatient (RCR) | payer BC, MEDICAID, SELFPAY ==
[2020-08-17 09:45] VITALS: BP 139/79; PULSE 89; RESP 18; TEMP 36.1; BMI 32.3
--- NOTE | 2020-08-17 10:48 | PCM.WC.HP ---
(1) Diabetes mellitus with neuropathy Status: Acute Code(s): E11.40 - Type 2 diabetes mellitus with diabetic neuropathy, unspecified (2) Ulcer of right foot with fat layer exposed Status: Acute Code(s): L97.512 - Non-pressure chronic ulcer of other part of right foot with fat layer exposed (3) Ulcer of left foot with fat layer exposed Status: Acute Code(s): L97.522 - Non-pressure chronic ulcer of other part of left foot with fat layer exposed (4) Xerosis cutis Status: Acute Code(s): L85.3 - Xerosis cutis (5) Tinea pedis Status: Acute Code(s): B35.3 - Tinea pedis History of Present Illness Date of Service: 08/17/20 Chief Complaint: Bilateral foot ulcers History of Wound: This 40-year-old female with significant past medical history of uncontrolled diabetes with neuropathy was referred to the wound healing center for bilateral foot ulcers. She relates she stepped on attack estimated around May 2020 which she developed an ulcer on her right second toe with subsequent infection and nonhealing wound. She also relates in the more recent setting that she developed a crack in her right heel from dry skin and is also trying to wound. She has been applying Neosporin to the sites. In 2020 estimated around June, she also relates she developed a wound to the ball of her foot on the left lower extremity she has been applying Nasreen. She denies current redness or odor. She has in general various rashes and scabs and skin peeling to her medial ankles and also arms chest. She is applying nystatin/triamcinolone cream which was recommended by her prior stummel selector. She is also recently seen by a drying room supervisor. She relates she has not had any lower extremity dermatitis conditions biopsied and during her dermatology visit she was promptly sent to the emergency room for other more urgent conditions. She relates she had a culture and biopsy done in her breast wound site only. She is on clindamycin for breast scab infection. She relates she had previous foot infections in which these were cultured and she completed antibiotics under the management of her [facility] stummel selector, Dr. Sousa. She does not think these are infected at this time. She presents wearing flexible winter boots and relates she has not been wearing her wedge offloading forefoot shoe for the left lower extremity that was provided by her previous stummel selector. She uses [id number] lotion for dry skin and relates it is not working. She relates she already had arterial outpatient testing performed in the lower extremities, prior labs were reviewed, cultures of foot wounds, and prior foot x-rays performed at the [facility]. Past Medical History Past Medical History: Chronic Problems (Last Reviewed 09/07/19 @ 12:[address] Dayo Ellington MD) Diabetes (Chronic) Obesity (Chronic) External hemorrhoids (Chronic) DM2 (diabetes mellitus, type 2) (Chronic) Past Medical History: Neuropathy, wide spread rash, breast infection Surgical History: noncontributory, cholecystectomy, - - tubal ligation, c- section Allergies/Adverse Reactions: Allergies Sulfa (Sulfonamide Antibiotics) Allergy (Verified 08/12/20 11:41) Hives doxycycline Adverse Reaction (Verified 08/12/20 14:47) Rash Home Medications: Ambulatory Orders Medication Instructions Recorded Insulin Lispro [Humalog] 12 - 25 unit SQ TID 08/26/18 Nystatin/Triamcin 30 gm TP BID #1 cream.gm. 05/24/20 [Nystatin/Triamcinolone Crm] hydrOXYzine pamoate capsule 50 mg PO TID PRN PRN #30 cap 07/07/20 [Vistaril] Clindamycin HCl [Cleocin] 300 mg PO Q6H #40 cap 08/12/20 Empagliflozin [Jardiance] 10 mg PO DAILY 08/17/20 Insulin Degludec [Tresiba] 65 unit SQ QHS 08/17/20 Smoking Status: Never smoker Review of Systems Constitutional: Denies: Chills, Fever, Fatigue Cardiovascular: Reports: Edema. Denies: Chest Pain, Claudication Respiratory: Denies: Shortness of Breath Gastrointestinal: Denies: Nausea, Vomiting Musculoskeletal: Denies: Foot Pain, Leg Pain Skin: Reports: Rash, Skin Changes, Wounds Neurological: Reports: Balance problems, Numbness, Tingling - Physical Exam Vital Signs Temp Pulse Resp BP 96.9 F L 89 18 139/79 H 08/17/20 09:45 08/17/20 09:45 08/17/20 09:45 08/17/20 09:45 General: Alert, Oriented x3, Cooperative, No apparent distress HEENT: Atraumatic Extremities: No cyanosis, Capillary Refill Less than 3 Seconds, No Calf Tenderness, Diminished Peripheral Pulses, Edema - Mild Skin: Ulcer/ Wound - No purulence, erythema, streaking, odor, necrosis, deep tissue exposure, or infection bilateral ulcer sites to the plantar right second toe and plantar posterior medial heel fissure or left distal subfirst metatarsal head. Her skin is atrophic. There is hair to her dorsal foot and bilateral legs, - - She does have dry skin bilateral plantar foot and heel rim. There is also some dry eschar and skin peeling to the medial left worse than right leg at the ankle level which looks consistent with tinea pedis type presentation or other inflammatory skin dermatitis Wound Measurements and Assessment WC - Nurse 1 - General Ulcer Measurement Start: 08/17/20 09:45 Freq: Status: Active Protocol: Activity Type Activity Date Activity User E-Sign Co-Sign Detail Recorded Client Recorded Date Recorded By Document 08/17/20 09:45 RB [id number] 08/17/20 09:55 RB 08/17/20 09:45 Wound Center Nurse 1 [Ulcer Assessment] 3. R heel -Combined with other wound No -Current Size (cm) - Length 3 -Current Size (cm) - Width 0.2 -Current Size (cm) - Depth 0.2 -Total Square Cm 0.6 -Photo Taken Yes -Tunneling No -Undermining/Tunneling No -Circular Undermining No -Exudate Amt Small -Exudate Type Serosanguineous -Wound Margin Thickened -Granulation Amt Small (1-33%) -Granulation Quality Penton -Slough/Fibrin Yes -Necrosis Amt Small (1-33%) -Necrotic Tissue Type Adherent Slough -Structure Exposed N/A -Texture (Mayra-wound Skin Appearance) Assessed,Callus -Moisture (Mayra-wound Skin Appearance Assessed ) -Color (Mayra-wound Skin Appearance) Assessed -Temperature (Mayra-wound Skin No Abnormality Appearance) (Pt Warm) -Tenderness on Palpation (Mayra-wound No Skin Appearance) -Ulcer Cleansing Wound Cleanser -Foul Odor after Cleansing No -Anesthetic Used 5% Lidocaine Gel 2. right 2nd toe -Combined with other wound No -Current Size (cm) - Length 0.4 -Current Size (cm) - Width 0.7 -Current Size (cm) - Depth 0.1 -Total Square Cm 0.28 -Photo Taken Yes -Tunneling No -Undermining/Tunneling No -Circular Undermining No -Exudate Amt Medium -Exudate Type Serosanguineous -Wound Margin Thickened -Granulation Amt Medium (34-66%) -Granulation Quality Penton -Slough/Fibrin Yes -Necrosis Amt Small (1-33%) -Necrotic Tissue Type Adherent Slough -Structure Exposed N/A -Texture (Mayra-wound Skin Appearance) Assessed,Callus -Moisture (Mayra-wound Skin Appearance Assessed ) -Color (Mayra-wound Skin Appearance) Assessed -Temperature (Mayra-wound Skin No Abnormality Appearance) (Pt Warm) -Tenderness on Palpation (Mayra-wound No Skin Appearance) -Ulcer Cleansing Wound Cleanser -Foul Odor after Cleansing No -Anesthetic Used 5% Lidocaine Gel 1. L plantar -Combined with other wound No -Current Size (cm) - Length 0.2 -Current Size (cm) - Width 0.3 -Current Size (cm) - Depth 0.3 -Total Square Cm 0.06 -Photo Taken Yes -Tunneling No -Undermining/Tunneling Yes -Undermining/Tunneling Starts (O' 12 clock) -Undermining/Tunneling Ends (O'clock) 12 -Maximum Distance (cm) 0.2 -Circular Undermining Yes -Exudate Amt Small -Exudate Type Serosanguineous -Wound Margin Thickened -Granulation Amt Small (1-33%) -Granulation Quality Penton,Red -Slough/Fibrin Yes -Necrosis Amt Medium (34-66%) -Necrotic Tissue Type Adherent Slough -Structure Exposed N/A -Texture (Mayra-wound Skin Appearance) Callus -Moisture (Mayra-wound Skin Appearance Assessed,Dry/ ) Scaly -Color (Mayra-wound Skin Appearance) Assessed -Temperature (Mayra-wound Skin No Abnormality Appearance) (Pt Warm) -Tenderness on Palpation (Mayra-wound No Skin Appearance) -Ulcer Cleansing Wound Cleanser -Foul Odor after Cleansing No -Anesthetic Used 5% Lidocaine Gel [Edema Assessment] -Lower Limb Edema Present No WC - Nurse 2 - General Ulcer CM Notes Start: 08/17/20 09:45 Freq: Status: Active Protocol: Activity Type Activity Date Activity User E-Sign Co-Sign Detail Recorded Client Recorded Date Recorded By Document 08/17/20 10:15 FAVIAN [id number] 08/17/20 10:21 FAVIAN 08/17/20 10:15 Wound Center Nurse 2 [Procedure/Treatment] 3. R heel -Time 10:17 -Correct Patient Yes -Correct Side, Site, Position Yes -Correct Procedure Yes -Procedure Performed Yes -Type of Procedure Debridement -Clinical Debridement Subcutaneous -Tissue Removed Subcutaneous -Post Debridement (cm) - Length 3 -Post Debridement (cm) - Width 0.3 -Post Debridement (cm) - Depth 0.2 -Total Square (Post) (cm) 0.9 -Area of Debridement (cm) - Length 3 -Area of Debridement (cm) - Width 0.2 -Total Square (Area) (cm) 0.6 -Tunneling No -Undermining/Tunneling No -Circular Undermining No -Wound/Ulcer Outcome Not Healed -Ulcer Cleansing Rinsed/ Irrigated with Saline -Foul Odor after Cleansing No -Bioengineered Tissue No -Bleeding Controlled with Pressure -Offloading Yes -Type of Offloading Surgical Shoe -Treatment Response Procedure Tolerated Well -Debridement - Subq, 1st 20sq cm Yes 2. right 2nd toe -Time 10:17 -Correct Patient Yes -Correct Side, Site, Position Yes -Correct Procedure Yes -Procedure Performed Yes -Type of Procedure Debridement -Clinical Debridement Subcutaneous -Tissue Removed Subcutaneous -Post Debridement (cm) - Length 0.3 -Post Debridement (cm) - Width 0.3 -Post Debridement (cm) - Depth 0.2 -Total Square (Post) (cm) 0.09 -Area of Debridement (cm) - Length 0.3 -Area of Debridement (cm) - Width 0.3 -Total Square (Area) (cm) 0.09 -Tunneling No -Undermining/Tunneling No -Circular Undermining No -Wound/Ulcer Outcome Not Healed -Ulcer Cleansing Rinsed/ Irrigated with Saline -Foul Odor after Cleansing No -Bioengineered Tissue No -Bleeding Controlled with Pressure -Offloading Yes -Type of Offloading Surgical Shoe -Treatment Response Procedure Tolerated Well -Debridement - Subq, 1st 20sq cm No 1. L plantar -Time 10:18 -Correct Patient Yes -Correct Side, Site, Position Yes -Correct Procedure Yes -Procedure Performed Yes -Type of Procedure Debridement -Clinical Debridement Subcutaneous -Tissue Removed Subcutaneous -Post Debridement (cm) - Length 0.3 -Post Debridement (cm) - Width 0.3 -Post Debridement (cm) - Depth 0.2 -Total Square (Post) (cm) 0.09 -Area of Debridement (cm) - Length 0.3 -Area of Debridement (cm) - Width 0.3 -Total Square (Area) (cm) 0.09 -Tunneling No -Undermining/Tunneling No -Circular Undermining No -Wound/Ulcer Outcome Not Healed -Ulcer Cleansing Rinsed/ Irrigated with Saline -Foul Odor after Cleansing No -Bioengineered Tissue No -Bleeding Controlled with Pressure -Offloading Yes -Type of Offloading Surgical Shoe -Treatment Response Procedure Tolerated Well -Debridement - Subq, 1st 20sq cm No [See Physician Procedure note for Specifics] Pain Scale: 0-10 Numeric [Pain] -Is Patient Pain Free? Yes Musculoskeletal: No Tenderness to Palpation of Joints or Extremities, Muscle Wasting, - Neurological: - - Lack of normal epicritic sensation light touch is consistent with neuropathic status Psych/Mental Status: Normal Affect, Appropriate Debridement Note Post-Debridement Measurements/Treatment WC - Nurse 2 - General Ulcer CM Notes Start: 08/17/20 09:45 Freq: Status: Active Protocol: Activity Type Activity Date Activity User E-Sign Co-Sign Detail Recorded Client Recorded Date Recorded By Document 08/17/20 10:15 FAVIAN [id number] 08/17/20 10:21 FAVIAN 08/17/20 10:15 Wound Center Nurse 2 3. R heel -Time 10:17 -Correct Patient Yes -Correct Side, Site, Position Yes -Correct Procedure Yes -Procedure Performed Yes -Type of Procedure Debridement -Clinical Debridement Subcutaneous -Tissue Removed Subcutaneous -Post Debridement (cm) - Length 3 -Post Debridement (cm) - Width 0.3 -Post Debridement (cm) - Depth 0.2 -Total Square (Post) (cm) 0.9 -Area of Debridement (cm) - Length 3 -Area of Debridement (cm) - Width 0.2 -Total Square (Area) (cm) 0.6 -Tunneling No -Undermining/Tunneling No -Circular Undermining No -Wound/Ulcer Outcome Not Healed -Ulcer Cleansing Rinsed/ Irrigated with Saline -Foul Odor after Cleansing No -Bioengineered Tissue No -Bleeding Controlled with Pressure -Offloading Yes -Type of Offloading Surgical Shoe -Treatment Response Procedure Tolerated Well -Debridement - Subq, 1st 20sq cm Yes 2. right 2nd toe -Time 10:17 -Correct Patient Yes -Correct Side, Site, Position Yes -Correct Procedure Yes -Procedure Performed Yes -Type of Procedure Debridement -Clinical Debridement Subcutaneous -Tissue Removed Subcutaneous -Post Debridement (cm) - Length 0.3 -Post Debridement (cm) - Width 0.3 -Post Debridement (cm) - Depth 0.2 -Total Square (Post) (cm) 0.09 -Area of Debridement (cm) - Length 0.3 -Area of Debridement (cm) - Width 0.3 -Total Square (Area) (cm) 0.09 -Tunneling No -Undermining/Tunneling No -Circular Undermining No -Wound/Ulcer Outcome Not Healed -Ulcer Cleansing Rinsed/ Irrigated with Saline -Foul Odor after Cleansing No -Bioengineered Tissue No -Bleeding Controlled with Pressure -Offloading Yes -Type of Offloading Surgical Shoe -Treatment Response Procedure Tolerated Well -Debridement - Subq, 1st 20sq cm No 1. L plantar -Time 10:18 -Correct Patient Yes -Correct Side, Site, Position Yes -Correct Procedure Yes -Procedure Performed Yes -Type of Procedure Debridement -Clinical Debridement Subcutaneous -Tissue Removed Subcutaneous -Post Debridement (cm) - Length 0.3 -Post Debridement (cm) - Width 0.3 -Post Debridement (cm) - Depth 0.2 -Total Square (Post) (cm) 0.09 -Area of Debridement (cm) - Length 0.3 -Area of Debridement (cm) - Width 0.3 -Total Square (Area) (cm) 0.09 -Tunneling No -Undermining/Tunneling No -Circular Undermining No -Wound/Ulcer Outcome Not Healed -Ulcer Cleansing Rinsed/ Irrigated with Saline -Foul Odor after Cleansing No -Bioengineered Tissue No -Bleeding Controlled with Pressure -Offloading Yes -Type of Offloading Surgical Shoe -Treatment Response Procedure Tolerated Well -Debridement - Subq, 1st 20sq cm No Pain Scale: 0-10 Numeric Is Patient Pain Free? Yes Wound debrided: plantar 2 toe, posterior heel fissure ulcer Laterality: Right Wound Grade/Stage: grade 1 Type of Debridement: Excisional debridement Anesthesia Used: 5% Lidocaine Gel Depth: in the subcutaneous layer Percentage of wound debrided: 100 Instrument Used: #15 blade Tissue Removed: fibrous, devitalized subcutaneous, biofilm, slough Severity: Fat Layer Exposed Amount of bleeding with debridement: Mild Bleeding Controlled with: Pressure Patient tolerated procedure well - Additional Wound Wound debrided: sub 1st metatarsal head distal aspect Laterality: Left Wound Grade/Stage: grade 1 Type of Debridement: Excisional debridement Anesthesia Used: 5% Lidocaine Gel Depth: in the subcutaneous layer Percentage of wound debrided: 100 Instrument Used: #15 blade Tissue Removed: fibrous, devitalized subcutaneous, biofilm, slough Severity: Fat Layer Exposed Amount of bleeding with debridement: Mild Bleeding Controlled with: Pressure Patient tolerated procedure: Patient tolerated procedure well Assessment/Plan Active Problems (Last Reviewed 09/07/19 @ 12:[address] Dayo Ellington MD) Diabetes mellitus with neuropathy (Acute) Ulcer of right foot with fat layer exposed (Acute) Ulcer of left foot with fat layer exposed (Acute) Xerosis cutis (Acute) Tinea pedis (Acute) Assessment: Right foot ulcer with fat layer exposed (plantar second toe and posterior heel fissure). Left foot ulcer fat layer exposed (subfirst metatarsal head). Diabetes with neuropathy (uncontrolled, A1c 8.0%). Xerosis. Tinea pedis versus other inflammatory dermatitis. Peripheral vascular disease work-up in process. Malnutrition suspected Plan: I reviewed and discussed this patient's case and reviewed the diagnostic data. The ulcers were debrided in a subcutaneous excisional manner as noted in the clinical panel. The patient was advised to change dressings daily with Nasreen to all sites. To wash with soap and water. She was advised to offload and she already has a forefoot wedge offloading shoe that she can resume using for the left lower extremity. I also fabricated her offloading Plastizote liner to a right surgical shoe that was fitted and dispensed today. Additional felt padding was applied to the posterior cloth shoe ramp to take pressure off of the fissure site. I would like to apply a total contact cast to the right lower extremity and she will need to come with a hazmat cdl a driver next week. She is amendable with this plan and prefers this for compliance purposes. She was reassured there are no signs of lower extremity infection. Her prior labs were reviewed from earlier this month and she did have a white blood cell count that was normal at 6.9. She had a a BMP also completed and her creatinine was normal at 0.93. I have requested her prior wound culture results and foot x-rays from the [facility]. She has decently palpable pulses however with chronic wounds and history of delayed healing I would recommend a noninvasive vascular study at this time. She reports she already had a stent and this was also requested from the [facility]. Improvement in glucose management is needed for healing and also for overall health management. She relates her A1c was previously over 14% and is now 8%. I offered her a pool hand referral that visualizes and diabetes management here at [facility]. She would like to think about this for another week prior to proceeding. I would also like to help her improve her adjacent skin integrity to prevent new fissures and ulcers and infections. Lac-Hydrin prescription was sent to her pharmacy at [facility] in [place]. It is also noted she does have a dermatitis type condition in which she is already been prescribed antifungal and steroid topical cream. To continue. To follow-up with her drying room supervisor who is treating her for various other conditions as well. If she is not going to obtain a biopsy at the dermatology clinic, I offered her a biopsy here which would involve a 2 mm punch biopsy to confirm if this is a fungal condition or there is a different etiology. To return to clinic in 1 week or call sooner if she develops any signs of infection. It is also noted she is currently not working and is on FMLA. I offered to update her paperwork if needed. 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 Note: [employer] speech recognition software validation technician software was used to create portions of this document. Sound-alike and misspelled words, as well as other software validation technician errors may be contained in the documentation. The medical decision making level is moderate based on data including at least three of the following: review of prior external notes, review of a test, ordering a test, assessment requiring an independent historian. The medical decision making level is moderate based on data including independent interpretation of a test performed by another qualified health rn managed care. The medical decision making level is moderate. There is noted moderate risk of morbidity after considering this treatment plan and diagnostic data. Considerations were given to prescription management, decisions regarding surgical options, or social determinants of health.
[2020-08-17 10:51] VITALS: BP 140/82
[2020-08-24 14:39] VITALS: BP 158/91; PULSE 93; RESP 18; TEMP 36.1; BMI 32.3
--- NOTE | 2020-08-24 15:42 | PN.PCM_ITS ---
(1) Diabetes mellitus with neuropathy Status: Acute Code(s): E11.40 - Type 2 diabetes mellitus with diabetic neuropathy, unspecified (2) Ulcer of right foot with fat layer exposed Status: Acute Code(s): L97.512 - Non-pressure chronic ulcer of other part of right foot with fat layer exposed (3) Ulcer of left foot with fat layer exposed Status: Acute Code(s): L97.522 - Non-pressure chronic ulcer of other part of left foot with fat layer exposed (4) Xerosis cutis Status: Chronic Code(s): L85.3 - Xerosis cutis (5) Tinea pedis Status: Suspected Code(s): B35.3 - Tinea pedis Type of Wound Date of Service: 08/24/20 Chief Complaint: Bilateral foot ulcers History of Wound: This 40-year-old female with significant past medical history of uncontrolled diabetes with neuropathy was seen today at the wound healing center for right heel fissure that is now an ulceration, right plantar second toe ulcer that followed a puncture injury, and left plantar medial foot ulcer. She has been wearing offloading shoes. She is been washing her foot with soap and water and performing dressing changes as advised. Her diagnostic data results were requested from the [facility] and were obtained. She is ready to proceed forward with a total contact cast today as discussed at her last visit. She is also seeking FMLA from her work and brought her paperwork for completion today. Progress of Wound: Improving - Physical Exam Vital Signs Temp Pulse Resp BP 97 F L 93 18 158/91 H 08/24/20 14:39 08/24/20 14:39 08/24/20 14:39 08/24/20 14:39 General: Alert, Oriented x3, Cooperative, No apparent distress HEENT: Atraumatic Extremities: No cyanosis, Capillary Refill Less than 3 Seconds, No Calf Tenderness, Diminished Peripheral Pulses, Edema, - - Dorsal contracture lesser toes with prominent metatarsal heads bilateral. Compartments soft to palpate bilateral Skin: Ulcer/ Wound - No purulence, erythema, streaking, odor, infection bilateral. Skin is atrophic and hairless and dry. No deep tissue necrosis Wound Measurements and Assessment WC - Nurse 1 - General Ulcer Measurement Start: 08/17/20 09:45 Freq: Status: Active Protocol: Activity Type Activity Date Activity User E-Sign Co-Sign Detail Recorded Client Recorded Date Recorded By Document 08/24/20 14:39 RB [id number] 08/24/20 14:46 RB 08/24/20 14:39 Wound Center Nurse 1 [Ulcer Assessment] 3. R heel -Combined with other wound No -Current Size (cm) - Length 0.1 -Current Size (cm) - Width 1.8 -Current Size (cm) - Depth 0.2 -Total Square Cm 0.18 -Tunneling No -Undermining/Tunneling No -Circular Undermining No -Exudate Amt Small -Exudate Type Serosanguineous -Wound Margin Flat & Intact -Granulation Amt Medium (34-66%) -Granulation Quality [place] -Necrosis Amt Small (1-33%) -Necrotic Tissue Type Adherent Slough -Structure Exposed N/A -Texture (Mayra-wound Skin Appearance) Assessed -Moisture (Mayra-wound Skin Appearance Assessed ) -Color (Mayra-wound Skin Appearance) Assessed -Temperature (Mayra-wound Skin No Abnormality Appearance) (Pt Warm) -Tenderness on Palpation (Mayra-wound No Skin Appearance) -Ulcer Cleansing Wound Cleanser -Foul Odor after Cleansing No -Anesthetic Used 4% Lidocaine Solution 2. right 2nd toe -Combined with other wound No -Current Size (cm) - Length 0.1 -Current Size (cm) - Width 0.1 -Current Size (cm) - Depth 0.1 -Total Square Cm 0.01 -Tunneling No -Undermining/Tunneling No -Circular Undermining No -Exudate Amt None Present -Wound Margin Flat & Intact -Granulation Amt Large (67-100%) -Granulation Quality [place] -Slough/Fibrin Yes -Necrosis Amt Small (1-33%) -Structure Exposed N/A -Texture (Mayra-wound Skin Appearance) Assessed -Moisture (Mayra-wound Skin Appearance Assessed ) -Color (Mayra-wound Skin Appearance) Assessed -Temperature (Mayra-wound Skin No Abnormality Appearance) (Pt Warm) -Tenderness on Palpation (Mayra-wound No Skin Appearance) -Ulcer Cleansing Wound Cleanser -Foul Odor after Cleansing No -Anesthetic Used 4% Lidocaine Solution 1. L plantar -Combined with other wound No -Current Size (cm) - Length 0.2 -Current Size (cm) - Width 0.3 -Current Size (cm) - Depth 0.3 -Total Square Cm 0.06 -Tunneling No -Undermining/Tunneling No -Circular Undermining No -Exudate Amt Small -Exudate Type Serosanguineous -Wound Margin Flat & Intact -Granulation Amt Medium (34-66%) -Granulation Quality [place] -Slough/Fibrin Yes -Necrosis Amt Small (1-33%) -Necrotic Tissue Type Adherent Slough -Structure Exposed N/A -Texture (Mayra-wound Skin Appearance) Assessed,Callus -Moisture (Mayra-wound Skin Appearance Assessed ) -Color (Mayra-wound Skin Appearance) Assessed -Temperature (Mayra-wound Skin No Abnormality Appearance) (Pt Warm) -Tenderness on Palpation (Mayra-wound No Skin Appearance) -Ulcer Cleansing Wound Cleanser -Foul Odor after Cleansing No -Anesthetic Used 4% Lidocaine Solution WC - Nurse 2 - General Ulcer CM Notes Start: 08/17/20 09:45 Freq: Status: Active Protocol: Activity Type Activity Date Activity User E-Sign Co-Sign Detail Recorded Client Recorded Date Recorded By Document 08/24/20 15:15 FAVIAN [id number] 08/24/20 15:18 FAVIAN 08/24/20 15:15 Wound Center Nurse 2 [Procedure/Treatment] 3. R heel -Time 15:15 -Correct Patient Yes -Correct Side, Site, Position Yes -Correct Procedure Yes -Procedure Performed Yes -Type of Procedure Debridement -Clinical Debridement Subcutaneous -Tissue Removed Subcutaneous -Post Debridement (cm) - Length 0.2 -Post Debridement (cm) - Width 1.8 -Post Debridement (cm) - Depth 0.2 -Total Square (Post) (cm) 0.36 -Area of Debridement (cm) - Length 0.2 -Area of Debridement (cm) - Width 1.8 -Total Square (Area) (cm) 0.36 -Tunneling No -Undermining/Tunneling No -Circular Undermining No -Wound/Ulcer Outcome Not Healed -Ulcer Cleansing Rinsed/ Irrigated with Saline -Foul Odor after Cleansing No -Bioengineered Tissue No -Bleeding Controlled with Pressure -Offloading Yes -Type of Offloading Surgical Shoe -Treatment Response Procedure Tolerated Well -Debridement - Subq, 1st 20sq cm Yes 2. right 2nd toe -Time 15:16 -Correct Patient Yes -Correct Side, Site, Position Yes -Correct Procedure Yes -Procedure Performed Yes -Type of Procedure Debridement -Clinical Debridement Subcutaneous -Tissue Removed Subcutaneous -Post Debridement (cm) - Length 0.2 -Post Debridement (cm) - Width 0.2 -Post Debridement (cm) - Depth 0.1 -Total Square (Post) (cm) 0.04 -Area of Debridement (cm) - Length 0.2 -Area of Debridement (cm) - Width 0.2 -Total Square (Area) (cm) 0.04 -Tunneling No -Undermining/Tunneling No -Circular Undermining No -Wound/Ulcer Outcome Not Healed -Ulcer Cleansing Rinsed/ Irrigated with Saline -Foul Odor after Cleansing No -Bioengineered Tissue No -Bleeding Controlled with Pressure -Offloading Yes -Type of Offloading Total Contact Cast (TCC) - Right ($) -Treatment Response Procedure Tolerated Well -Debridement - Subq, 20sq cm No 1. L plantar -Time 15:17 -Correct Patient Yes -Correct Side, Site, Position Yes -Correct Procedure Yes -Procedure Performed Yes -Type of Procedure Debridement -Clinical Debridement Subcutaneous -Tissue Removed Subcutaneous -Post Debridement (cm) - Length 0.3 -Post Debridement (cm) - Width 0.3 -Post Debridement (cm) - Depth 0.1 -Total Square (Post) (cm) 0.09 -Area of Debridement (cm) - Length 0.3 -Area of Debridement (cm) - Width 0.3 -Total Square (Area) (cm) 0.09 -Tunneling No -Undermining/Tunneling No -Circular Undermining No -Wound/Ulcer Outcome Not Healed -Ulcer Cleansing Rinsed/ Irrigated with Saline -Foul Odor after Cleansing No -Bioengineered Tissue No -Bleeding Controlled with Pressure -Offloading Yes -Type of Offloading Surgical Shoe -Treatment Response Procedure Tolerated Well -Debridement - Subq, 20sq cm No [See Physician Procedure note for Specifics] Pain Scale: 0-10 Numeric [Pain] -Is Patient Pain Free? Yes Musculoskeletal: No Tenderness to Palpation of Joints or Extremities, Muscle Wasting Neurological: - - Lack of full epicritic sensation light touch is consistent with a neuropathic status Psych/Mental Status: Normal Affect, Appropriate Debridement Note Post-Debridement Measurements/Treatment WC - Nurse 2 - General Ulcer CM Notes Start: 08/17/20 09:45 Freq: Status: Active Protocol: Activity Type Activity Date Activity User E-Sign Co-Sign Detail Recorded Client Recorded Date Recorded By Document 03/10/21 10:15 FAVIAN [id number] 08/17/20 10:21 Document 08/24/20 15:15 [id number] [id number] 08/24/20 15:18 08/17/20 08/24/20 10:15 15:15 Wound Center Nurse 2 3. R heel -Time 10:17 15:15 -Correct Patient Yes Yes -Correct Side, Site, Position Yes Yes -Correct Procedure Yes Yes -Procedure Performed Yes Yes -Type of Procedure Debridement Debridement -Clinical Debridement Subcutaneous Subcutaneous -Tissue Removed Subcutaneous Subcutaneous -Post Debridement (cm) - Length 3 0.2 -Post Debridement (cm) - Width 0.3 1.8 -Post Debridement (cm) - Depth 0.2 0.2 -Total Square (Post) (cm) 0.9 0.36 -Area of Debridement (cm) - Length 3 0.2 -Area of Debridement (cm) - Width 0.2 1.8 -Total Square (Area) (cm) 0.6 0.36 -Tunneling No No -Undermining/Tunneling No No -Circular Undermining No No -Wound/Ulcer Outcome Not Healed Not Healed -Ulcer Cleansing Rinsed/ Rinsed/ Irrigated with Irrigated with Saline Saline -Foul Odor after Cleansing No No -Bioengineered Tissue No No -Bleeding Controlled with Pressure Pressure -Offloading Yes Yes -Type of Offloading Surgical Shoe Surgical Shoe -Treatment Response Procedure Procedure Tolerated Well Tolerated Well -Debridement - Subq, 1st 20sq cm Yes Yes 2. right 2nd toe -Time 10:17 15:16 -Correct Patient Yes Yes -Correct Side, Site, Position Yes Yes -Correct Procedure Yes Yes -Procedure Performed Yes Yes -Type of Procedure Debridement Debridement -Clinical Debridement Subcutaneous Subcutaneous -Tissue Removed Subcutaneous Subcutaneous -Post Debridement (cm) - Length 0.3 0.2 -Post Debridement (cm) - Width 0.3 0.2 -Post Debridement (cm) - Depth 0.2 0.1 -Total Square (Post) (cm) 0.09 0.04 -Area of Debridement (cm) - Length 0.3 0.2 -Area of Debridement (cm) - Width 0.3 0.2 -Total Square (Area) (cm) 0.09 0.04 -Tunneling No No -Undermining/Tunneling No No -Circular Undermining No No -Wound/Ulcer Outcome Not Healed Not Healed -Ulcer Cleansing Rinsed/ Rinsed/ Irrigated with Irrigated with Saline Saline -Foul Odor after Cleansing No No -Bioengineered Tissue No No -Bleeding Controlled with Pressure Pressure -Offloading Yes Yes -Type of Offloading Surgical Shoe Total Contact Cast (TCC) - Right ($) -Treatment Response Procedure Procedure Tolerated Well Tolerated Well -Debridement - Subq, 1st 20sq cm No No 1. L plantar -Time 10:18 15:17 -Correct Patient Yes Yes -Correct Side, Site, Position Yes Yes -Correct Procedure Yes Yes -Procedure Performed Yes Yes -Type of Procedure Debridement Debridement -Clinical Debridement Subcutaneous Subcutaneous -Tissue Removed Subcutaneous Subcutaneous -Post Debridement (cm) - Length 0.3 0.3 -Post Debridement (cm) - Width 0.3 0.3 -Post Debridement (cm) - Depth 0.2 0.1 -Total Square (Post) (cm) 0.09 0.09 -Area of Debridement (cm) - Length 0.3 0.3 -Area of Debridement (cm) - Width 0.3 0.3 -Total Square (Area) (cm) 0.09 0.09 -Tunneling No No -Undermining/Tunneling No No -Circular Undermining No No -Wound/Ulcer Outcome Not Healed Not Healed -Ulcer Cleansing Rinsed/ Rinsed/ Irrigated with Irrigated with Saline Saline -Foul Odor after Cleansing No No -Bioengineered Tissue No No -Bleeding Controlled with Pressure Pressure -Offloading Yes Yes -Type of Offloading Surgical Shoe Surgical Shoe -Treatment Response Procedure Procedure Tolerated Well Tolerated Well -Debridement - Subq, 1st 20sq cm No No Pain Scale: 0-10 Numeric Is Patient Pain Free? Yes Yes - Nurse 3 - General Ulcer D/C NN Start: 08/17/20 09:45 Freq: Status: Active Protocol: Activity Type Activity Date Activity User E-Sign Co-Sign Detail Recorded Client Recorded Date Recorded By Document 08/17/20 10:51 BILL [id number] 08/17/20 10:52 RB 08/17/20 10:51 Wound Care Nurse 3 3. R heel -Ulcer Cleansing Rinsed/ Irrigated with Saline -Primary Dressing Applied Promogran Claribel Matter -Primary Dressing Covered/Secured with Dry Gauze,Dry Gauze & Roll Gauze,Secured with Tape -Promogran Claribel Matter 1 2. right 2nd toe -Ulcer Cleansing Rinsed/ Irrigated with Saline -Other Dressing claribel -Primary Dressing Covered/Secured with Dry Gauze,Dry Gauze & Roll Gauze,Secured with Tape 1. L plantar -Ulcer Cleansing Rinsed/ Irrigated with Saline -Other Dressing claribel -Primary Dressing Covered/Secured with Dry Gauze,Dry Gauze & Roll Gauze,Secured with Tape Treatment Response Procedure Tolerated Well Vital Signs Blood Pressure (90/60-120/80) 140/82 H Blood Pressure Mean (mm Hg) 101 Source Monitor Position Semi-Fowlers Blood Pressure Location Left Arm Pain Scale: 0-10 Numeric Is Patient Pain Free? Yes WC - Visit Discharge Discharge Condition Stable Ambulatory Status Ambulatory Transportation Private Auto Medication Reconcilliation completed & No provided to patient/care provider Clinical Summary of Care Provided Yes Wound debrided: plantar 2 toe and plantar heel fissure ulcer Laterality: Right Wound Grade/Stage: grade 1 Type of Debridement: Excisional debridement Anesthesia Used: 5% Lidocaine Gel Depth: in the subcutaneous layer Percentage of wound debrided: 100 Instrument Used: #15 blade Tissue Removed: fibrous, devitalized subcutaneous, biofilm, slough Severity: Fat Layer Exposed Amount of bleeding with debridement: Mild Bleeding Controlled with: Pressure Patient tolerated procedure well - Additional Wound Wound debrided: plantar medial first metatarsal head Laterality: Left Wound Grade/Stage: grade 1 Type of Debridement: Excisional debridement Anesthesia Used: 5% Lidocaine Gel Depth: in the subcutaneous layer Percentage of wound debrided: 100 Instrument Used: #15 blade Tissue Removed: fibrous, devitalized subcutaneous, biofilm, slough Severity: Fat Layer Exposed Amount of bleeding with debridement: Mild Bleeding Controlled with: Pressure Patient tolerated procedure: Patient tolerated procedure well Assessment/Plan Active Problems (Last Reviewed 09/07/19 @ 12:[address] Dayo Ellington MD) Diabetes mellitus with neuropathy (Acute) Ulcer of right foot with fat layer exposed (Acute) Ulcer of left foot with fat layer exposed (Acute) Xerosis cutis (Chronic) Assessment: Right foot ulcer with fat layer exposed (plantar second toe and posterior heel fissure). Left foot ulcer fat layer exposed (subfirst metatarsal head). Diabetes with neuropathy (uncontrolled, A1c 8.0%). Xerosis. Tinea pedis versus other inflammatory dermatitis. Peripheral vascular disease work-up in process. Malnutrition suspected Plan: I reviewed and discussed this patient's case and reviewed the diagnostic data. The ulcers were debrided in a subcutaneous excisional manner as noted in the clinical panel. The patient was advised to change dressings daily with Claribel to left foot. To wash with soap and water. She was advised to offload and she already has a forefoot wedge offloading shoe that she can resume using for the left lower extremity. I recommend application of a total contact cast to the right lower extremity. She is amendable with this plan and prefers this for compliance purposes. The indications and benefits, anticipated use and safety precautions were reviewed. She was advised to keep this clean dry and intact. This total contact cast was applied according to standard protocol in a well-padded rectus neutral position. She tolerated this well. She understands she must return to follow-up no later than 1 week from this time to have it removed. She was reassured there are no signs of lower extremity infection. Her prior labs were reviewed from earlier this month and she did have a white blood cell count that was normal at 6.9. She had a a BMP also completed and her creatinine was normal at 0.93. I have requested her prior wound culture results and foot x-rays from the [facility]. This was reviewed and her x- ray in 06-21-20 included 3 left foot views which demonstrated edema near the first digit without fractures or dislocations. 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 The MRSA was susceptible to tetracyclines clindamycin linezolid and Bactrim. She has decently palpable pulses however with chronic wounds and history of delayed healing I would recommend a noninvasive vascular study at this time. She reports she already had a stent and this was also requested from the [facility]. Her edema is noted and I recommended Tubigrip application which was dispensed for the left lower extremity today. Improvement in glucose management is needed for healing and also for overall health management. She relates her A1c was previously over 14% and is now 8%. I offered her a dairy cattle farm manager referral that visualizes and diabetes management here at [facility]. She would like to think about this for another week prior to proceeding. I would also like to help her improve her adjacent skin integrity to prevent new fissures and ulcers and infections. Lac-Hydrin prescription was sent previously to her pharmacy at [facility] in [place]. It is also noted she does have a dermatitis type condition in which she is already been prescribed antifungal and steroid topical cream. To continue. To follow-up with her gas fitter helper who is treating her for various other conditions as well. If she is not going to obtain a biopsy at the dermatology clinic, I offered her a biopsy here which would involve a 2 mm punch biopsy to confirm if this is a fungal condition or there is a different etiology. To return to clinic in 1 week or call sooner if she develops any signs of infection. It is also noted she is currently not working and is on FMLA. I offered to update her paperwork if needed and she brought the paperwork today. 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 Note: [employer] speech recognition shipping support clerk software was used to create portions of this document. Sound-alike and misspelled words, as well as other shipping support clerk errors may be contained in the documentation. 21 minutes was spent on this encounter. This included face to face and non face to face care including preparing for the visit, reviewing the history, performing the exam, counseling and providing education to the patient, family, or caregiver, ordering medications/test/ procedures if indicated as documented, communicating with other healthcare providers, documenting information in the medical record, interpreting / sharing this information when indicated as documented, and care coordination.
[2020-08-31 09:18] VITALS: BP 149/81; PULSE 82; RESP 16; TEMP 36.4; BMI 32.3
--- NOTE | 2020-08-31 10:01 | PCM.WC.PN ---
(1) Diabetes mellitus with neuropathy Status: Acute Code(s): E11.40 - Type 2 diabetes mellitus with diabetic neuropathy, unspecified (2) Ulcer of right foot with fat layer exposed Status: Chronic Code(s): L97.512 - Non-pressure chronic ulcer of other part of right foot with fat layer exposed (3) Ulcer of left foot with fat layer exposed Status: Chronic Code(s): L97.522 - Non-pressure chronic ulcer of other part of left foot with fat layer exposed (4) Xerosis cutis Status: Chronic Code(s): L85.3 - Xerosis cutis (5) Tinea pedis Status: Suspected Code(s): B35.3 - Tinea pedis (6) Ulcer of left lower extremity with fat layer exposed Status: Acute Code(s): L97.922 - Non-pressure chronic ulcer of unspecified part of left lower leg with fat layer exposed Type of Wound Date of Service: 08/31/20 Chief Complaint: Bilateral foot ulcers and new ankle wound left History of Wound: This 40-year-old female with significant past medical history of uncontrolled diabetes with neuropathy was seen today at the wound healing center for right heel fissure that is now an ulceration, right plantar second toe ulcer that followed a puncture injury, and left plantar medial foot ulcer. She also had dry peeling skin that is improving with lotion application. There is now a scab that has transformed to the inner aspect of her left ankle. She has been wearing offloading shoes and a total contact cast on the right lower extremity. She is been washing her other foot with soap and water and performing dressing changes as advised. Her diagnostic data results were requested from the [facility] and were obtained. She is ready to proceed forward with a total contact cast today as discussed at her last visit. Progress of Wound: Improving right second toe and left foot. Healed heel ulcer right. New wound identified left medial ankle - Physical Exam Vital Signs Temp Pulse Resp BP 97.5 F L 82 16 149/81 H 08/31/20 09:18 08/31/20 09:18 08/31/20 09:18 08/31/20 09:18 General: Alert, Oriented x3, Cooperative, No apparent distress HEENT: Atraumatic Extremities: No cyanosis, Capillary Refill Less than 3 Seconds, No Calf Tenderness, Diminished Peripheral Pulses, Edema Skin: Ulcer/ Wound - No purulence, erythema, streaking, odor, infection. Full epithelialization noted to right heel ulcer site. Reduction and other ulcer sizes. Medial ankle has skin discontinuity with dry yellow scab and reduced adjacent peeling Wound Measurements and Assessment WC - Nurse 1 - General Ulcer Measurement Start: 08/17/20 09:45 Freq: Status: Active Protocol: Activity Type Activity Date Activity User E-Sign Co-Sign Detail Recorded Client Recorded Date Recorded By Document 08/31/20 09:18 [facility] [id number] 08/31/20 09:27 [facility] 08/31/20 09:18 Wound Center Nurse 1 [Ulcer Assessment] 3. R heel -Combined with other wound No -Current Size (cm) - Length 1.7 -Current Size (cm) - Width 0.2 -Current Size (cm) - Depth 0.2 -Total Square Cm 0.34 -Photo Taken No -Epithelialization None Present -Tunneling No -Undermining/Tunneling No -Circular Undermining No -Exudate Amt Small -Exudate Type Serosanguineous -Wound Margin Distinct, Outline Attached -Granulation Amt None Present (0 %) -Slough/Fibrin Yes -Necrosis Amt Large (67-100%) -Necrotic Tissue Type Adherent Slough -Texture (Mayra-wound Skin Appearance) Assessed, Scarring -Moisture (Mayra-wound Skin Appearance Assessed ) -Color (Mayra-wound Skin Appearance) Assessed -Temperature (Mayra-wound Skin No Abnormality Appearance) (Pt Warm) -Tenderness on Palpation (Mayra-wound Yes Skin Appearance) -Ulcer Cleansing Wound Cleanser -Foul Odor after Cleansing No -Anesthetic Used 4% Lidocaine Solution 2. right 2nd toe -Combined with other wound No -Current Size (cm) - Length 0.1 -Current Size (cm) - Width 0.1 -Current Size (cm) - Depth 0.2 -Total Square Cm 0.01 -Photo Taken No -Epithelialization Medium 34-66% -Tunneling No -Undermining/Tunneling No -Circular Undermining No -Exudate Amt Small -Exudate Type Serosanguineous -Wound Margin Distinct, Outline Attached -Granulation Amt Large (67-100%) -Granulation Quality [place] -Slough/Fibrin Yes -Necrosis Amt Small (1-33%) -Necrotic Tissue Type Adherent Slough -Texture (Mayra-wound Skin Appearance) Assessed -Moisture (Mayra-wound Skin Appearance Assessed, ) Maceration -Color (Mayra-wound Skin Appearance) Assessed,Palor -Temperature (Mayra-wound Skin No Abnormality Appearance) (Pt Warm) -Tenderness on Palpation (Mayra-wound Yes Skin Appearance) -Ulcer Cleansing Wound Cleanser -Foul Odor after Cleansing No -Anesthetic Used 4% Lidocaine Solution 1. L plantar -Combined with other wound No -Current Size (cm) - Length 0.1 -Current Size (cm) - Width 0.1 -Current Size (cm) - Depth 0.1 -Total Square Cm 0.01 -Photo Taken No -Epithelialization Medium 34-66% -Tunneling No -Undermining/Tunneling No -Circular Undermining No -Exudate Amt None Present -Wound Margin Flat & Intact -Granulation Amt None Present (0 %) -Slough/Fibrin Yes -Necrosis Amt Large (67-100%) -Necrotic Tissue Type Adherent Slough -Texture (Mayra-wound Skin Appearance) Assessed,Callus ,Scarring -Moisture (Mayra-wound Skin Appearance Assessed,Dry/ ) Scaly -Color (Mayra-wound Skin Appearance) Assessed -Temperature (Mayra-wound Skin No Abnormality Appearance) (Pt Warm) -Tenderness on Palpation (Mayra-wound No Skin Appearance) -Ulcer Cleansing Wound Cleanser -Foul Odor after Cleansing No -Anesthetic Used 4% Lidocaine Solution WC - Nurse 2 - General Ulcer CM Notes Start: 08/17/20 09:45 Freq: Status: Active Protocol: Activity Type Activity Date Activity User E-Sign Co-Sign Detail Recorded Client Recorded Date Recorded By Document 08/31/20 09:32 FAV[facility] [id number] 08/31/20 09:40 FAVIAN 08/31/20 09:32 Wound Center Nurse 2 [Procedure/Treatment] 4-left medial ankle -Time 09:39 -Correct Patient Yes -Correct Side, Site, Position Yes -Correct Procedure Yes -Procedure Performed Yes -Type of Procedure Debridement -Clinical Debridement Subcutaneous -Tissue Removed Subcutaneous -Post Debridement (cm) - Length 2 -Post Debridement (cm) - Width 1.3 -Post Debridement (cm) - Depth 0.1 -Total Square (Post) (cm) 2.6 -Area of Debridement (cm) - Length 2 -Area of Debridement (cm) - Width 1.3 -Total Square (Area) (cm) 2.6 -Tunneling No -Undermining/Tunneling No -Circular Undermining No -Wound/Ulcer Outcome Not Healed -Ulcer Cleansing Rinsed/ Irrigated with Saline -Foul Odor after Cleansing No -Bioengineered Tissue No -Bleeding Controlled with Pressure -Offloading No -Treatment Response Procedure Tolerated Well -Debridement - Subq, 1st 20sq cm No 3. R heel -Time 09:32 -Correct Patient No -Correct Side, Site, Position No -Correct Procedure No -Procedure Performed No -Post Debridement (cm) - Length 0 -Post Debridement (cm) - Width 0 -Post Debridement (cm) - Depth 0 -Total Square (Post) (cm) 0 -Area of Debridement (cm) - Length 0 -Area of Debridement (cm) - Width 0 -Total Square (Area) (cm) 0 -Tunneling No -Undermining/Tunneling No -Circular Undermining No -Wound/Ulcer Outcome Healed- Epithelialized -Ulcer Cleansing Rinsed/ Irrigated with Saline -Foul Odor after Cleansing No -Bioengineered Tissue No -Bleeding Controlled with Pressure -Offloading No -Treatment Response Procedure Tolerated Well -Debridement - Subq, 1st 20sq cm No 2. right 2nd toe -Time 09:33 -Correct Patient Yes -Correct Side, Site, Position Yes -Correct Procedure Yes -Procedure Performed Yes -Type of Procedure Debridement -Clinical Debridement Subcutaneous -Tissue Removed Subcutaneous -Post Debridement (cm) - Length 0.3 -Post Debridement (cm) - Width 0.2 -Post Debridement (cm) - Depth 0.2 -Total Square (Post) (cm) 0.06 -Area of Debridement (cm) - Length 0.3 -Area of Debridement (cm) - Width 0.2 -Total Square (Area) (cm) 0.06 -Tunneling No -Undermining/Tunneling No -Circular Undermining No -Wound/Ulcer Outcome Not Healed -Ulcer Cleansing Rinsed/ Irrigated with Saline -Foul Odor after Cleansing No -Bioengineered Tissue No -Bleeding Controlled with Pressure -Offloading Yes -Type of Offloading Total Contact Cast (TCC) - Right ($) -Treatment Response Procedure Tolerated Well -Debridement - Subq, 1st 20sq cm Yes 1. L plantar -Time 09:38 -Correct Patient Yes -Correct Side, Site, Position Yes -Correct Procedure Yes -Procedure Performed Yes -Type of Procedure Debridement -Clinical Debridement Subcutaneous -Tissue Removed Subcutaneous -Post Debridement (cm) - Length 0.2 -Post Debridement (cm) - Width 0.3 -Post Debridement (cm) - Depth 0.1 -Total Square (Post) (cm) 0.06 -Area of Debridement (cm) - Length 0.2 -Area of Debridement (cm) - Width 0.3 -Total Square (Area) (cm) 0.06 -Tunneling No -Undermining/Tunneling No -Circular Undermining No -Wound/Ulcer Outcome Not Healed -Ulcer Cleansing Rinsed/ Irrigated with Saline -Foul Odor after Cleansing No -Bioengineered Tissue No -Bleeding Controlled with Pressure -Offloading Yes -Type of Offloading Surgical Shoe -Treatment Response Procedure Tolerated Well -Debridement - Subq, 1st 20sq cm No [See Physician Procedure note for Specifics] Pain Scale: 0-10 Numeric [Pain] -Is Patient Pain Free? Yes Musculoskeletal: Muscle Wasting Neurological: Sensory exam intact to light touch and pain, - Psych/Mental Status: Normal Affect, Appropriate Debridement Note Post-Debridement Measurements/Treatment WC - Nurse 2 - General Ulcer CM Notes Start: 08/17/20 09:45 Freq: Status: Active Protocol: Activity Type Activity Date Activity User E-Sign Co-Sign Detail Recorded Client Recorded Date Recorded By Document 08/17/20 10:15 [id number] 08/17/20 10:21 Document 08/24/20 15:15 [id number] [id number] 08/24/20 15:18 Document 08/31/20 09:32 [id number] 08/31/20 09:40 08/17/20 08/24/20 08/31/20 10:15 15:15 09:32 Wound Center Nurse 2 4-left medial ankle -Time 09:39 -Correct Patient Yes -Correct Side, Site, Position Yes -Correct Procedure Yes -Procedure Performed Yes -Type of Procedure Debridement -Clinical Debridement Subcutaneous -Tissue Removed Subcutaneous -Post Debridement (cm) - Length 2 -Post Debridement (cm) - Width 1.3 -Post Debridement (cm) - Depth 0.1 -Total Square (Post) (cm) 2.6 -Area of Debridement (cm) - Length 2 -Area of Debridement (cm) - Width 1.3 -Total Square (Area) (cm) 2.6 -Tunneling No -Undermining/Tunneling No -Circular Undermining No -Wound/Ulcer Outcome Not Healed -Ulcer Cleansing Rinsed/ Irrigated with Saline -Foul Odor after Cleansing No -Bioengineered Tissue No -Bleeding Controlled with Pressure -Offloading No -Treatment Response Procedure Tolerated Well -Debridement - Subq, 1st 20sq cm No 3. R heel -Time 10:17 15:15 09:32 -Correct Patient Yes Yes No -Correct Side, Site, Position Yes Yes No -Correct Procedure Yes Yes No -Procedure Performed Yes Yes No -Type of Procedure Debridement Debridement -Clinical Debridement Subcutaneous Subcutaneous -Tissue Removed Subcutaneous Subcutaneous -Post Debridement (cm) - Length 3 0.2 0 -Post Debridement (cm) - Width 0.3 1.8 0 -Post Debridement (cm) - Depth 0.2 0.2 0 -Total Square (Post) (cm) 0.9 0.36 0 -Area of Debridement (cm) - Length 3 0.2 0 -Area of Debridement (cm) - Width 0.2 1.8 0 -Total Square (Area) (cm) 0.6 0.36 0 -Tunneling No No No -Undermining/Tunneling No No No -Circular Undermining No No No -Wound/Ulcer Outcome Not Healed Not Healed Healed- Epithelialized -Ulcer Cleansing Rinsed/ Rinsed/ Rinsed/ Irrigated with Irrigated with Irrigated with Saline Saline Saline -Foul Odor after Cleansing No No No -Bioengineered Tissue No No No -Bleeding Controlled with Pressure Pressure Pressure -Offloading Yes Yes No -Type of Offloading Surgical Shoe Surgical Shoe -Treatment Response Procedure Procedure Procedure Tolerated Well Tolerated Well Tolerated Well -Debridement - Subq, 1st 20sq cm Yes Yes No 2. right 2nd toe -Time 10:17 15:16 09:33 -Correct Patient Yes Yes Yes -Correct Side, Site, Position Yes Yes Yes -Correct Procedure Yes Yes Yes -Procedure Performed Yes Yes Yes -Type of Procedure Debridement Debridement Debridement -Clinical Debridement Subcutaneous Subcutaneous Subcutaneous -Tissue Removed Subcutaneous Subcutaneous Subcutaneous -Post Debridement (cm) - Length 0.3 0.2 0.3 -Post Debridement (cm) - Width 0.3 0.2 0.2 -Post Debridement (cm) - Depth 0.2 0.1 0.2 -Total Square (Post) (cm) 0.09 0.04 0.06 -Area of Debridement (cm) - Length 0.3 0.2 0.3 -Area of Debridement (cm) - Width 0.3 0.2 0.2 -Total Square (Area) (cm) 0.09 0.04 0.06 -Tunneling No No No -Undermining/Tunneling No No No -Circular Undermining No No No -Wound/Ulcer Outcome Not Healed Not Healed Not Healed -Ulcer Cleansing Rinsed/ Rinsed/ Rinsed/ Irrigated with Irrigated with Irrigated with Saline Saline Saline -Foul Odor after Cleansing No No No -Bioengineered Tissue No No No -Bleeding Controlled with Pressure Pressure Pressure -Offloading Yes Yes Yes -Type of Offloading Surgical Shoe Total Contact Total Contact Cast (TCC) - Cast (TCC) - Right ($) Right ($) -Treatment Response Procedure Procedure Procedure Tolerated Well Tolerated Well Tolerated Well -Debridement - Subq, 1st 20sq cm No No Yes 1. L plantar -Time 10:18 15:17 09:38 -Correct Patient Yes Yes Yes -Correct Side, Site, Position Yes Yes Yes -Correct Procedure Yes Yes Yes -Procedure Performed Yes Yes Yes -Type of Procedure Debridement Debridement Debridement -Clinical Debridement Subcutaneous Subcutaneous Subcutaneous -Tissue Removed Subcutaneous Subcutaneous Subcutaneous -Post Debridement (cm) - Length 0.3 0.3 0.2 -Post Debridement (cm) - Width 0.3 0.3 0.3 -Post Debridement (cm) - Depth 0.2 0.1 0.1 -Total Square (Post) (cm) 0.09 0.09 0.06 -Area of Debridement (cm) - Length 0.3 0.3 0.2 -Area of Debridement (cm) - Width 0.3 0.3 0.3 -Total Square (Area) (cm) 0.09 0.09 0.06 -Tunneling No No No -Undermining/Tunneling No No No -Circular Undermining No No No -Wound/Ulcer Outcome Not Healed Not Healed Not Healed -Ulcer Cleansing Rinsed/ Rinsed/ Rinsed/ Irrigated with Irrigated with Irrigated with Saline Saline Saline -Foul Odor after Cleansing No No No -Bioengineered Tissue No No No -Bleeding Controlled with Pressure Pressure Pressure -Offloading Yes Yes Yes -Type of Offloading Surgical Shoe Surgical Shoe Surgical Shoe -Treatment Response Procedure Procedure Procedure Tolerated Well Tolerated Well Tolerated Well -Debridement - Subq, 1st 20sq cm No No No Pain Scale: 0-10 Numeric Is Patient Pain Free? Yes Yes Yes - Nurse 3 - General Ulcer D/C NN Start: 08/17/20 09:45 Freq: Status: Active Protocol: Activity Type Activity Date Activity User E-Sign Co-Sign Detail Recorded Client Recorded Date Recorded By Document 08/17/20 10:51 RB [id number] 08/17/20 10:52 RB Document 08/24/20 15:47 RB [id number] 08/24/20 15:49 RB 08/17/20 08/24/20 10:51 15:47 Wound Care Nurse 3 3. R heel -Ulcer Cleansing Rinsed/ Rinsed/ Irrigated with Irrigated with Saline Saline -Primary Dressing Applied Promogran Promogran Claribel Matter Claribel Matter -Other Dressing primary layer of TCC -Primary Dressing Covered/Secured with Dry Gauze,Dry Gauze & Roll Gauze,Secured with Tape -Promogran Claribel Matter 1 1 2. right 2nd toe -Ulcer Cleansing Rinsed/ Rinsed/ Irrigated with Irrigated with Saline Saline -Other Dressing claribel claribel -Primary Dressing Covered/Secured with Dry Gauze,Dry Dry Gauze Gauze & Roll Gauze,Secured with Tape 1. L plantar -Ulcer Cleansing Rinsed/ Rinsed/ Irrigated with Irrigated with Saline Saline -Other Dressing claribel claribel -Primary Dressing Covered/Secured with Dry Gauze,Dry Dry Gauze, Gauze & Roll Secured with Gauze,Secured Tape with Tape Treatment Response Procedure Procedure Tolerated Well Tolerated Well Vital Signs Blood Pressure (90/60-120/80) 140/82 H Blood Pressure Mean (mm Hg) 101 Source Monitor Position Semi-Fowlers Blood Pressure Location Left Arm Pain Scale: 0-10 Numeric Is Patient Pain Free? Yes Yes - Visit Discharge Discharge Condition Stable Stable Ambulatory Status Ambulatory Ambulatory Transportation Private Auto Private Auto Medication Reconcilliation completed & No No provided to patient/care provider Clinical Summary of Care Provided Yes Yes Wound debrided: plantar second toe Laterality: Right Wound Grade/Stage: grade 1 Type of Debridement: Excisional debridement Anesthesia Used: 5% Lidocaine Gel Depth: in the subcutaneous layer Percentage of wound debrided: 100 Instrument Used: #15 blade Tissue Removed: fibrous, devitalized subcutaneous, biofilm, slough Severity: Fat Layer Exposed Amount of bleeding with debridement: Mild Bleeding Controlled with: Pressure Patient tolerated procedure well - Additional Wound Wound debrided: sub 1st metatarsal head Laterality: Left - g Wound Grade/Stage: grade 1 Type of Debridement: Excisional debridement Anesthesia Used: 5% Lidocaine Gel Depth: in the subcutaneous layer Percentage of wound debrided: 100 Instrument Used: #15 blade Tissue Removed: fibrous, devitalized subcutaneous, biofilm, slough Severity: Fat Layer Exposed Amount of bleeding with debridement: Mild Bleeding Controlled with: Pressure Patient tolerated procedure: Patient tolerated procedure well - Additional Wound Wound debrided: medial ankle Laterality: Left Wound Grade/Stage: grade 1 Type of Debridement: Excisional debridement Anesthesia Used: 5% Lidocaine Gel Depth: in the subcutaneous layer Percentage of wound debrided: 100 Instrument Used: #15 blade Tissue Removed: fibrous, devitalized subcutaneous, biofilm, slough, eschar Severity: Fat Layer Exposed Amount of bleeding with debridement: Mild Bleeding Controlled with: Pressure Patient tolerated procedure: Patient tolerated procedure well Assessment/Plan Active Problems (Last Reviewed 09/07/19 @ 12:[address] Dayo Ellington MD) Diabetes mellitus with neuropathy (Acute) Ulcer of right foot with fat layer exposed (Chronic) Ulcer of left foot with fat layer exposed (Chronic) Xerosis cutis (Chronic) Ulcer of left lower extremity with fat layer exposed (Acute) Assessment: Right foot ulcer with fat layer exposed (plantar second toe). right heel ucler healed. Left foot ulcer fat layer exposed (subfirst metatarsal head). new medial ankle ulcer, left. Diabetes with neuropathy (uncontrolled, A1c 8.0%). Xerosis. Tinea pedis versus other inflammatory dermatitis verus xerosis. Peripheral vascular disease work-up in process. Malnutrition suspected Plan: I reviewed and discussed this patient's case and reviewed the diagnostic data. The ulcers were debrided in a subcutaneous excisional manner as noted in the clinical panel. The patient was advised to change dressings daily with Claribel to left foot. To apply hydrogel to medial left ankle site to soften remaining eschar. To wash with soap and water. She was advised to offload and she already has a forefoot wedge offloading shoe that she can resume using for the left lower extremity. It is noted she is not wearing this today compliance was discussed. I recommend application of a total contact cast to the right lower extremity. She is amendable with this plan and prefers this for compliance purposes. The indications and benefits, anticipated use and safety precautions were reviewed. She was advised to keep this clean dry and intact. This total contact cast was applied according to standard protocol in a well-padded rectus neutral position. She tolerated this well. She understands she must return to follow-up no later than 1 week from this time to have it removed. She was reassured there are no signs of lower extremity infection. Her prior labs were reviewed from earlier this month and she did have a white blood cell count that was normal at 6.9. She had a a BMP also completed and her creatinine was normal at 0.93. I have requested her prior wound culture results and foot x-rays from the [facility]. This was reviewed and her x-ray in 06-21-20 included 3 left foot views which demonstrated edema near the first digit without fractures or dislocations. Her right foot x-ray was reviewed from 06-07-2020 with no soft tissue emphysema, bony destruction or other osseous abnormalities. The report was reviewed from [facility]. 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 The MRSA was susceptible to tetracyclines clindamycin linezolid and Bactrim. She has decently palpable pulses however with chronic wounds and history of delayed healing I would recommend a noninvasive vascular study at this time. She reports she already had a stent and this was also requested from the [facility]. Her edema is noted and I recommended Tubigrip application which was dispensed for the left lower extremity today. Improvement in glucose management is needed for healing and also for overall health management. She relates her A1c was previously over 14% and is now 8%. I offered her a bail bonding agent referral that visualizes and diabetes management here at [facility]. She would like to think about this for another week prior to proceeding. I would also like to help her improve her adjacent skin integrity to prevent new fissures and ulcers and infections. Lac-Hydrin prescription was sent previously to her pharmacy at [facility] in [place]. To continue use. It is also noted she does have a dermatitis type condition in which she is already been prescribed antifungal and steroid topical cream. To continue. To follow-up with her menswear salesperson who is treating her for various other conditions as well. If she is not going to obtain a biopsy at the dermatology clinic, I offered her a biopsy here which would involve a 2 mm punch biopsy to confirm if this is a fungal condition or there is a different etiology. To return to clinic in 1 week or call sooner if she develops any signs of infection. Her [facility] paperwork was completed last week. 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 Note: [employer] speech recognition hat finisher software was used to create portions of this document. Sound-alike and misspelled words, as well as other hat finisher errors may be contained in the documentation. The problems addressed require a moderate decision making level which includes one or more chronic illnesses (w/ exacerbation, progression, or side effects), two or more stable chronic illnesses, one undiagnosed new problem w/ uncertain prognosis, one acute illness with systemic symptoms, or one acute complicated injury. The medical decision making level is moderate. There is noted moderate risk of morbidity after considering this treatment plan and diagnostic data. Considerations were given to prescription management, decisions regarding surgical options, or social determinants of health.
[2020-08-31 10:04] VITALS: BP 149/81
[2020-09-07 10:30] VITALS: BP 145/86; PULSE 89; RESP 16; TEMP 36.5; BMI 32.3
--- NOTE | 2020-09-07 11:37 | PCM.WC.PN ---
(1) Ulcer of left foot with fat layer exposed Status: Chronic Code(s): L97.522 - Non-pressure chronic ulcer of other part of left foot with fat layer exposed (2) Diabetes mellitus with neuropathy Status: Acute Code(s): E11.40 - Type 2 diabetes mellitus with diabetic neuropathy, unspecified (3) Ulcer of right foot with fat layer exposed Status: Resolved Code(s): L97.512 - Non-pressure chronic ulcer of other part of right foot with fat layer exposed (4) Xerosis cutis Status: Chronic Code(s): L85.3 - Xerosis cutis (5) Tinea pedis Status: Suspected Code(s): B35.3 - Tinea pedis (6) Ulcer of left lower extremity with fat layer exposed Status: Acute Code(s): L97.922 - Non-pressure chronic ulcer of unspecified part of left lower leg with fat layer exposed Type of Wound Date of Service: 09/07/20 Chief Complaint: Bilateral foot ulcers and ankle wound left History of Wound: This 40-year-old female with significant past medical history of uncontrolled diabetes with neuropathy was seen today at the wound healing center for right heel fissure that is now an ulceration, right plantar second toe ulcer that followed a puncture injury, and left plantar medial foot ulcer. She also had dry peeling skin that is improving with lotion application. There is now a scab that has transformed to the inner aspect of her left ankle that is now a wound and treated. She has been wearing offloading shoes and a total contact cast on the right lower extremity. This was bothering her last week and she had a removed early. She denies drainage to the right lower extremity. She is been washing her other left foot with soap and water and performing dressing changes as advised. Her diagnostic data results were requested from the [facility] and were obtained. Progress of Wound: Healed right second toe. Improved left foot ulcer. Healed heel ulcer right. Improved left medial ankle ulcer - Physical Exam Vital Signs Temp Pulse Resp BP 97.7 F L 89 16 145/86 H 09/07/20 10:30 09/07/20 10:30 09/07/20 10:30 09/07/20 10:30 General: Alert, Oriented x3, Cooperative, No apparent distress HEENT: Atraumatic Extremities: No cyanosis, Capillary Refill Less than 3 Seconds, No Calf Tenderness, Diminished Peripheral Pulses, Edema - Mild Skin: Ulcer/ Wound - Full epithelialization to right lower extremity ulcer sites. No purulence, erythema, string, odor, infection to left ulcer sites. Resolved eschar and fibrous tissue to the medial left ankle with remaining granular fibrous tissue. Adjacent skin is atrophic Wound Measurements and Assessment WC - Nurse 1 - General Ulcer Measurement Start: 08/17/20 09:45 Freq: Status: Active Protocol: Activity Type Activity Date Activity User E-Sign Co-Sign Detail Recorded Client Recorded Date Recorded By Document 09/07/20 10:30 [facility] [id number] 09/07/20 10:38 [facility] 09/07/20 10:30 Wound Center Nurse 1 [Ulcer Assessment] 4-left medial ankle -Combined with other wound No -Current Size (cm) - Length 1.9 -Current Size (cm) - Width 0.8 -Current Size (cm) - Depth 0.1 -Total Square Cm 1.52 -Photo Taken No -Epithelialization None Present -Tunneling No -Undermining/Tunneling No -Circular Undermining No -Exudate Amt Small -Exudate Type Serosanguineous -Wound Margin Distinct, Outline Attached -Granulation Amt None Present (0 %) -Slough/Fibrin Yes -Necrosis Amt Large (67-100%) -Necrotic Tissue Type Adherent Slough -Texture (Mayra-wound Skin Appearance) Assessed, Scarring -Moisture (Mayra-wound Skin Appearance Assessed,Dry/ ) Scaly -Color (Marya-wound Skin Appearance) Assessed, Erythema -Temperature (Mayra-wound Skin No Abnormality Appearance) (Pt Warm) -Tenderness on Palpation (Mayra-wound No Skin Appearance) -Ulcer Cleansing Rinsed/ Irrigated with Saline -Foul Odor after Cleansing No -Anesthetic Used 5% Lidocaine Gel 2. right 2nd toe -Combined with other wound No -Current Size (cm) - Length 0.1 -Current Size (cm) - Width 0.1 -Current Size (cm) - Depth 0.1 -Total Square Cm 0.01 -Epithelialization Large 67-100% 1. L plantar -Combined with other wound No -Current Size (cm) - Length 0.1 -Current Size (cm) - Width 0.1 -Current Size (cm) - Depth 0.1 -Total Square Cm 0.01 -Epithelialization Large 67-100% CATRINA - Nurse 2 - General Ulcer CM Notes Start: 08/17/20 09:45 Freq: Status: Active Protocol: Activity Type Activity Date Activity User E-Sign Co-Sign Detail Recorded Client Recorded Date Recorded By Document 09/07/20 10:45 FAVIAN [id number] 09/07/20 10:53 FAVIAN 09/07/20 10:45 Wound Center Nurse 2 [Procedure/Treatment] 4-left medial ankle -Time 10:49 -Correct Patient Yes -Correct Side, Site, Position Yes -Correct Procedure Yes -Procedure Performed Yes -Type of Procedure Debridement -Clinical Debridement Subcutaneous -Tissue Removed Subcutaneous -Post Debridement (cm) - Length 2 -Post Debridement (cm) - Width 0.8 -Post Debridement (cm) - Depth 0.1 -Total Square (Post) (cm) 1.6 -Area of Debridement (cm) - Length 2 -Area of Debridement (cm) - Width 0.8 -Total Square (Area) (cm) 1.6 -Tunneling No -Undermining/Tunneling No -Circular Undermining No -Wound/Ulcer Outcome Not Healed -Ulcer Cleansing Rinsed/ Irrigated with Saline -Foul Odor after Cleansing No -Bioengineered Tissue No -Bleeding Controlled with Pressure -Offloading Yes -Type of Offloading Surgical Shoe -Treatment Response Procedure Tolerated Well -Debridement - Subq, 1st 20sq cm Yes 2. right 2nd toe -Correct Patient No -Correct Side, Site, Position No -Correct Procedure No -Procedure Performed No -Post Debridement (cm) - Length 0 -Post Debridement (cm) - Width 0 -Post Debridement (cm) - Depth 0 -Total Square (Post) (cm) 0 -Area of Debridement (cm) - Length 0 -Area of Debridement (cm) - Width 0 -Total Square (Area) (cm) 0 -Wound/Ulcer Outcome Healed- Epithelialized 1. L plantar -Time 10:48 -Correct Patient Yes -Correct Side, Site, Position Yes -Correct Procedure Yes -Procedure Performed Yes -Type of Procedure Debridement -Clinical Debridement Subcutaneous -Tissue Removed Subcutaneous -Post Debridement (cm) - Length 0.2 -Post Debridement (cm) - Width 0.3 -Post Debridement (cm) - Depth 0.2 -Total Square (Post) (cm) 0.06 -Area of Debridement (cm) - Length 0.2 -Area of Debridement (cm) - Width 0.3 -Total Square (Area) (cm) 0.06 -Tunneling No -Undermining/Tunneling No -Circular Undermining No -Wound/Ulcer Outcome Not Healed -Ulcer Cleansing Rinsed/ Irrigated with Saline -Foul Odor after Cleansing No -Bioengineered Tissue No -Bleeding Controlled with Pressure -Offloading Yes -Type of Offloading Surgical Shoe -Treatment Response Procedure Tolerated Well -Debridement - Subq, 1st 20sq cm No [See Physician Procedure note for Specifics] Pain Scale: 0-10 Numeric [Pain] -Is Patient Pain Free? Yes - Nurse 3 - General Ulcer D/C NN Start: 08/17/20 09:45 Freq: Status: Active Protocol: Activity Type Activity Date Activity User E-Sign Co-Sign Detail Recorded Client Recorded Date Recorded By Document 09/07/20 10:54 FAVIAN [id number] 09/07/20 10:55 FAVIAN 09/07/20 10:54 Wound Care Nurse 3 [Wound Dressing] 4-left medial ankle -Ulcer Cleansing Rinsed/ Irrigated with Saline -Foul Odor after Cleansing No -Primary Dressing Applied C Hydrogel ($) -Primary Dressing Covered/Secured Dry Gauze, with Secured with Tape 1. L plantar -Ulcer Cleansing Rinsed/ Irrigated with Saline -Foul Odor after Cleansing No -Primary Dressing Applied C Hydrogel ($) -Primary Dressing Covered/Secured Dry Gauze, with Secured with Tape Pain Scale: 0-10 Numeric [Pain] -Is Patient Pain Free? Yes - Visit Discharge [Visit Discharge Information] -Discharge Condition Stable -Ambulatory Status Ambulatory -Transportation Private Auto -Medication Reconcilliation completed Yes & provided to patient/care provider -Clinical Summary of Care Provided Yes Musculoskeletal: No Tenderness to Palpation of Joints or Extremities, Muscle Wasting Neurological: - - Lack of full epicritic sensation light touch Psych/Mental Status: Normal Affect, Appropriate Debridement Note Post-Debridement Measurements/Treatment WC - Nurse 2 - General Ulcer CM Notes Start: 08/17/20 09:45 Freq: Status: Active Protocol: Activity Type Activity Date Activity User E-Sign Co-Sign Detail Recorded Client Recorded Date Recorded By Document 08/17/20 10:15 FAVIAN [id number] 08/17/20 10:21 Document 08/24/20 15:15 AFVIAN [id number] 08/24/20 15:18 Document 08/31/20 09:32 [id number] 08/31/20 09:40 Document 09/07/20 10:45 [id number] [id number] 09/07/20 10:53 JF 08/17/20 08/24/20 08/31/20 10:15 15:15 09:32 Wound Center Nurse 2 4-left medial ankle -Time 09:39 -Correct Patient Yes -Correct Side, Site, Position Yes -Correct Procedure Yes -Procedure Performed Yes -Type of Procedure Debridement -Clinical Debridement Subcutaneous -Tissue Removed Subcutaneous -Post Debridement (cm) - Length 2 -Post Debridement (cm) - Width 1.3 -Post Debridement (cm) - Depth 0.1 -Total Square (Post) (cm) 2.6 -Area of Debridement (cm) - Length 2 -Area of Debridement (cm) - Width 1.3 -Total Square (Area) (cm) 2.6 -Tunneling No -Undermining/Tunneling No -Circular Undermining No -Wound/Ulcer Outcome Not Healed -Ulcer Cleansing Rinsed/ Irrigated with Saline -Foul Odor after Cleansing No -Bioengineered Tissue No -Bleeding Controlled with Pressure -Offloading No -Type of Offloading -Treatment Response Procedure Tolerated Well -Debridement - Subq, 1st 20sq cm No 3. R heel -Time 10:17 15:15 09:32 -Correct Patient Yes Yes No -Correct Side, Site, Position Yes Yes No -Correct Procedure Yes Yes No -Procedure Performed Yes Yes No -Type of Procedure Debridement Debridement -Clinical Debridement Subcutaneous Subcutaneous -Tissue Removed Subcutaneous Subcutaneous -Post Debridement (cm) - Length 3 0.2 0 -Post Debridement (cm) - Width 0.3 1.8 0 -Post Debridement (cm) - Depth 0.2 0.2 0 -Total Square (Post) (cm) 0.9 0.36 0 -Area of Debridement (cm) - Length 3 0.2 0 -Area of Debridement (cm) - Width 0.2 1.8 0 -Total Square (Area) (cm) 0.6 0.36 0 -Tunneling No No No -Undermining/Tunneling No No No -Circular Undermining No No No -Wound/Ulcer Outcome Not Healed Not Healed Healed- Epithelialized -Ulcer Cleansing Rinsed/ Rinsed/ Rinsed/ Irrigated with Irrigated with Irrigated with Saline Saline Saline -Foul Odor after Cleansing No No No -Bioengineered Tissue No No No -Bleeding Controlled with Pressure Pressure Pressure -Offloading Yes Yes No -Type of Offloading Surgical Shoe Surgical Shoe -Treatment Response Procedure Procedure Procedure Tolerated Well Tolerated Well Tolerated Well -Debridement - Subq, 1st 20sq cm Yes Yes No 2. right 2nd toe -Time 10:17 15:16 09:33 -Correct Patient Yes Yes Yes -Correct Side, Site, Position Yes Yes Yes -Correct Procedure Yes Yes Yes -Procedure Performed Yes Yes Yes -Type of Procedure Debridement Debridement Debridement -Clinical Debridement Subcutaneous Subcutaneous Subcutaneous -Tissue Removed Subcutaneous Subcutaneous Subcutaneous -Post Debridement (cm) - Length 0.3 0.2 0.3 -Post Debridement (cm) - Width 0.3 0.2 0.2 -Post Debridement (cm) - Depth 0.2 0.1 0.2 -Total Square (Post) (cm) 0.09 0.04 0.06 -Area of Debridement (cm) - Length 0.3 0.2 0.3 -Area of Debridement (cm) - Width 0.3 0.2 0.2 -Total Square (Area) (cm) 0.09 0.04 0.06 -Tunneling No No No -Undermining/Tunneling No No No -Circular Undermining No No No -Wound/Ulcer Outcome Not Healed Not Healed Not Healed -Ulcer Cleansing Rinsed/ Rinsed/ Rinsed/ Irrigated with Irrigated with Irrigated with Saline Saline Saline -Foul Odor after Cleansing No No No -Bioengineered Tissue No No No -Bleeding Controlled with Pressure Pressure Pressure -Offloading Yes Yes Yes -Type of Offloading Surgical Shoe Total Contact Total Contact Cast (TCC) - Cast (TCC) - Right ($) Right ($) -Treatment Response Procedure Procedure Procedure Tolerated Well Tolerated Well Tolerated Well -Debridement - Subq, 1st 20sq cm No No Yes 1. L plantar -Time 10:18 15:17 09:38 -Correct Patient Yes Yes Yes -Correct Side, Site, Position Yes Yes Yes -Correct Procedure Yes Yes Yes -Procedure Performed Yes Yes Yes -Type of Procedure Debridement Debridement Debridement -Clinical Debridement Subcutaneous Subcutaneous Subcutaneous -Tissue Removed Subcutaneous Subcutaneous Subcutaneous -Post Debridement (cm) - Length 0.3 0.3 0.2 -Post Debridement (cm) - Width 0.3 0.3 0.3 -Post Debridement (cm) - Depth 0.2 0.1 0.1 -Total Square (Post) (cm) 0.09 0.09 0.06 -Area of Debridement (cm) - Length 0.3 0.3 0.2 -Area of Debridement (cm) - Width 0.3 0.3 0.3 -Total Square (Area) (cm) 0.09 0.09 0.06 -Tunneling No No No -Undermining/Tunneling No No No -Circular Undermining No No No -Wound/Ulcer Outcome Not Healed Not Healed Not Healed -Ulcer Cleansing Rinsed/ Rinsed/ Rinsed/ Irrigated with Irrigated with Irrigated with Saline Saline Saline -Foul Odor after Cleansing No No No -Bioengineered Tissue No No No -Bleeding Controlled with Pressure Pressure Pressure -Offloading Yes Yes Yes -Type of Offloading Surgical Shoe Surgical Shoe Surgical Shoe -Treatment Response Procedure Procedure Procedure Tolerated Well Tolerated Well Tolerated Well -Debridement - Subq, 1st 20sq cm No No No Pain Scale: 0-10 Numeric Is Patient Pain Free? Yes Yes Yes 09/07/20 10:45 Wound Center Nurse 2 4-left medial ankle -Time 10:49 -Correct Patient Yes -Correct Side, Site, Position Yes -Correct Procedure Yes -Procedure Performed Yes -Type of Procedure Debridement -Clinical Debridement Subcutaneous -Tissue Removed Subcutaneous -Post Debridement (cm) - Length 2 -Post Debridement (cm) - Width 0.8 -Post Debridement (cm) - Depth 0.1 -Total Square (Post) (cm) 1.6 -Area of Debridement (cm) - Length 2 -Area of Debridement (cm) - Width 0.8 -Total Square (Area) (cm) 1.6 -Tunneling No -Undermining/Tunneling No -Circular Undermining No -Wound/Ulcer Outcome Not Healed -Ulcer Cleansing Rinsed/ Irrigated with Saline -Foul Odor after Cleansing No -Bioengineered Tissue No -Bleeding Controlled with Pressure -Offloading Yes -Type of Offloading Surgical Shoe -Treatment Response Procedure Tolerated Well -Debridement - Subq, 1st 20sq cm Yes 3. R heel -Time -Correct Patient -Correct Side, Site, Position -Correct Procedure -Procedure Performed -Type of Procedure -Clinical Debridement -Tissue Removed -Post Debridement (cm) - Length -Post Debridement (cm) - Width -Post Debridement (cm) - Depth -Total Square (Post) (cm) -Area of Debridement (cm) - Length -Area of Debridement (cm) - Width -Total Square (Area) (cm) -Tunneling -Undermining/Tunneling -Circular Undermining -Wound/Ulcer Outcome -Ulcer Cleansing -Foul Odor after Cleansing -Bioengineered Tissue -Bleeding Controlled with -Offloading -Type of Offloading -Treatment Response -Debridement - Subq, 1st 20sq cm 2. right 2nd toe -Time -Correct Patient No -Correct Side, Site, Position No -Correct Procedure No -Procedure Performed No -Type of Procedure -Clinical Debridement -Tissue Removed -Post Debridement (cm) - Length 0 -Post Debridement (cm) - Width 0 -Post Debridement (cm) - Depth 0 -Total Square (Post) (cm) 0 -Area of Debridement (cm) - Length 0 -Area of Debridement (cm) - Width 0 -Total Square (Area) (cm) 0 -Tunneling -Undermining/Tunneling -Circular Undermining -Wound/Ulcer Outcome Healed- Epithelialized -Ulcer Cleansing -Foul Odor after Cleansing -Bioengineered Tissue -Bleeding Controlled with -Offloading -Type of Offloading -Treatment Response -Debridement - Subq, 20sq cm 1. L plantar -Time 10:48 -Correct Patient Yes -Correct Side, Site, Position Yes -Correct Procedure Yes -Procedure Performed Yes -Type of Procedure Debridement -Clinical Debridement Subcutaneous -Tissue Removed Subcutaneous -Post Debridement (cm) - Length 0.2 -Post Debridement (cm) - Width 0.3 -Post Debridement (cm) - Depth 0.2 -Total Square (Post) (cm) 0.06 -Area of Debridement (cm) - Length 0.2 -Area of Debridement (cm) - Width 0.3 -Total Square (Area) (cm) 0.06 -Tunneling No -Undermining/Tunneling No -Circular Undermining No -Wound/Ulcer Outcome Not Healed -Ulcer Cleansing Rinsed/ Irrigated with Saline -Foul Odor after Cleansing No -Bioengineered Tissue No -Bleeding Controlled with Pressure -Offloading Yes -Type of Offloading Surgical Shoe -Treatment Response Procedure Tolerated Well -Debridement - Subq, 1st 20sq cm No Pain Scale: 0-10 Numeric Is Patient Pain Free? Yes WC - Nurse 3 - General Ulcer D/C NN Start: 08/17/20 09:45 Freq: Status: Active Protocol: Activity Type Activity Date Activity User E-Sign Co-Sign Detail Recorded Client Recorded Date Recorded By Document 08/17/20 10:51 RB [id number] 08/17/20 10:52 RB Document 08/24/20 15:47 RB [id number] 08/24/20 15:49 RB Document 08/31/20 10:04 RB [id number] 08/31/20 10:06 RB Document 09/07/20 10:54 [id number] 09/07/20 10:55 08/17/20 08/24/20 08/31/20 10:51 15:47 10:04 Wound Care Nurse 3 4-left medial ankle -Ulcer Cleansing Rinsed/ Irrigated with Saline -Foul Odor after Cleansing -Primary Dressing Applied C Hydrogel ($) -Primary Dressing Covered/Secured with Dry Gauze, Secured with Tape 3. R heel -Ulcer Cleansing Rinsed/ Rinsed/ Irrigated with Irrigated with Saline Saline -Primary Dressing Applied Promogran Promogran Claribel Matter Claribel Matter -Other Dressing primary layer of TCC -Primary Dressing Covered/Secured with Dry Gauze,Dry Gauze & Roll Gauze,Secured with Tape -Promogran Claribel Matter 1 1 2. right 2nd toe -Ulcer Cleansing Rinsed/ Rinsed/ Rinsed/ Irrigated with Irrigated with Irrigated with Saline Saline Saline -Primary Dressing Applied Promogran Claribel Matter -Other Dressing claribel claribel primary layer of TCC -Primary Dressing Covered/Secured with Dry Gauze,Dry Dry Gauze Gauze & Roll Gauze,Secured with Tape -Promogran Claribel Matter 1 1. L plantar -Ulcer Cleansing Rinsed/ Rinsed/ Rinsed/ Irrigated with Irrigated with Irrigated with Saline Saline Saline -Foul Odor after Cleansing -Primary Dressing Applied -Other Dressing claribel claribel claribel -Primary Dressing Covered/Secured with Dry Gauze,Dry Dry Gauze, Dry Gauze, Gauze & Roll Secured with Secured with Gauze,Secured Tape Tape with Tape Treatment Response Procedure Procedure Procedure Tolerated Well Tolerated Well Tolerated Well Vital Signs Blood Pressure (90/60-120/80) 140/82 H 149/81 H Blood Pressure Mean (mm Hg) 101 103 Source Monitor Monitor Position Semi-Fowlers Semi-Fowlers Blood Pressure Location Left Arm Left Arm Pain Scale: 0-10 Numeric Is Patient Pain Free? Yes Yes Yes WC - Visit Discharge Discharge Condition Stable Stable Stable Ambulatory Status Ambulatory Ambulatory Walker Transportation Private Auto Private Auto Private Auto Medication Reconcilliation completed & No No No provided to patient/care provider Clinical Summary of Care Provided Yes Yes Yes 09/07/20 10:54 Wound Care Nurse 3 4-left medial ankle -Ulcer Cleansing Rinsed/ Irrigated with Saline -Foul Odor after Cleansing No -Primary Dressing Applied C Hydrogel ($) -Primary Dressing Covered/Secured with Dry Gauze, Secured with Tape 3. R heel -Ulcer Cleansing -Primary Dressing Applied -Other Dressing -Primary Dressing Covered/Secured with -Promogran Claribel Matter 2. right 2nd toe -Ulcer Cleansing -Primary Dressing Applied -Other Dressing -Primary Dressing Covered/Secured with -Promogran Claribel Matter 1. L plantar -Ulcer Cleansing Rinsed/ Irrigated with Saline -Foul Odor after Cleansing No -Primary Dressing Applied C Hydrogel ($) -Other Dressing -Primary Dressing Covered/Secured with Dry Gauze, Secured with Tape Treatment Response Vital Signs Blood Pressure (90/60-120/80) Blood Pressure Mean (mm Hg) Source Position Blood Pressure Location Pain Scale: 0-10 Numeric Is Patient Pain Free? Yes WC - Visit Discharge Discharge Condition Stable Ambulatory Status Ambulatory Transportation Private Auto Medication Reconcilliation completed & Yes provided to patient/care provider Clinical Summary of Care Provided Yes Wound debrided: plantar medial foot, medial ankle/leg Laterality: Left Wound Grade/Stage: grade 1 Type of Debridement: Excisional debridement Anesthesia Used: 5% Lidocaine Gel Depth: in the subcutaneous layer Percentage of wound debrided: 100 Instrument Used: #15 blade Tissue Removed: fibrous, devitalized subcutaneous, biofilm, slough Severity: Fat Layer Exposed Amount of bleeding with debridement: Mild Bleeding Controlled with: Pressure Patient tolerated procedure well Assessment/Plan Active Problems (Last Reviewed 09/07/19 @ 12:[address] Dayo Ellington MD) Diabetes mellitus with neuropathy (Acute) Ulcer of left foot with fat layer exposed (Chronic) Xerosis cutis (Chronic) Ulcer of left lower extremity with fat layer exposed (Acute) Assessment: Right foot ulcer healed (plantar second toe). right heel ucler healed. Left foot ulcer fat layer exposed (subfirst metatarsal head) stable. Improved medial ankle ulcer, left. Diabetes with neuropathy (uncontrolled, A1c 8.0%). Xerosis. Tinea pedis versus other inflammatory dermatitis verus xerosis. Peripheral vascular disease work-up in process. Malnutrition suspected Plan: I reviewed and discussed this patient's case and reviewed the diagnostic data. The ulcers were debrided in a subcutaneous excisional manner as noted in the clinical panel. The patient was advised to change dressings daily with Claribel to left foot. To apply hydrogel to medial left ankle site to keep moist. To wash with soap and water. She was advised to offload and she already has a forefoot wedge offloading shoe that she can resume using for the left lower extremity. It is noted she is not wearing this today compliance was discussed. I recommend application of a total contact cast to the left lower extremity and she defers today. Her prior labs were reviewed from earlier this month and she did have a white blood cell count that was normal at 6.9. She had a a BMP also completed and her creatinine was normal at 0.93. I have requested her prior wound culture results and foot x-rays from the [facility]. This was reviewed and her x-ray in 06-21-20 included 3 left foot views which demonstrated edema near the first digit without fractures or dislocations. Her right foot x-ray was reviewed from 06-07-2020 with no soft tissue emphysema, bony destruction or other osseous abnormalities. The report was reviewed from [facility]. 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 The MRSA was susceptible to tetracyclines clindamycin linezolid and Bactrim. She has decently palpable pulses however with chronic wounds and history of delayed healing I would recommend a noninvasive vascular study at this time. She reports she already had a stent and this was also requested from the [facility]. Her edema is noted and I recommended Tubigrip application which was dispensed for the left lower extremity today. Improvement in glucose management is needed for healing and also for overall health management. She relates her A1c was previously over 14% and is now 8%. I offered her a logistics/shipper referral that visualizes and diabetes management here at [facility]. She defers. Lac-Hydrin prescription was sent previously to her pharmacy at [facility] in [place]. To continue use. It is also noted she does have a dermatitis type condition in which she is already been prescribed antifungal and steroid topical cream. To continue. 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 If she is not going to obtain a biopsy at the dermatology clinic, I offered her a biopsy here which would involve a 2 mm punch biopsy to confirm if this is a fungal condition or there is a different etiology. To return to clinic in 1 week or call sooner if she develops any signs of infection. Note: [employer] speech recognition advanced practice rn software was used to create portions of this document. Sound-alike and misspelled words, as well as other advanced practice rn errors may be contained in the documentation. 20 minutes was spent on this encounter. This included face to face and non face to face care including preparing for the visit, reviewing the history, performing the exam, counseling and providing education to the patient, family, or caregiver, ordering medications/test/ procedures if indicated as documented, communicating with other healthcare providers, documenting information in the medical record, interpreting / sharing this information when indicated as documented, and care coordination.
== END 2020-09-07 23:59 ==
LOC: WC 10:00
PROVIDERS: PCP Family Medicine; Visit Provider Podiatrist
DX: E11.621 Type 2 diabetes mellitus with foot ulcer (principal); L97.512 Non-pressure chronic ulcer of other part of right foot with fat layer exposed; E11.40 Type 2 diabetes mellitus with diabetic neuropathy, unspecified; L85.3 Xerosis cutis; B35.3 Tinea pedis; E66.9 Obesity, unspecified; Z79.4 Long term (current) use of insulin; Z79.899 Other long term (current) drug therapy; L97.522 Non-pressure chronic ulcer of other part of left foot with fat layer exposed; E11.622 Type 2 diabetes mellitus with other skin ulcer; L97.322 Non-pressure chronic ulcer of left ankle with fat layer exposed
CPT/HCPCS: 11042; 29445; 99213; G0463

== ENCOUNTER 2020-09-28 14:45 | Outpatient (RCR) | payer BC, MEDICAID, SELFPAY ==
[2020-09-08 00:49] VITALS: BP 145/86; PULSE 89; RESP 16; TEMP 36.5; BMI 35.6
[2020-09-14 14:21] VITALS: BP 138/86; PULSE 90; RESP 20; TEMP 36.6; BMI 35.6
--- NOTE | 2020-09-14 16:52 | PN.PCM_ITS ---
(1) Diabetes mellitus with neuropathy Status: Acute Code(s): E11.40 - Type 2 diabetes mellitus with diabetic neuropathy, unspecified (2) Ulcer of left lower extremity with fat layer exposed Status: Acute Code(s): L97.922 - Non-pressure chronic ulcer of unspecified part of left lower leg with fat layer exposed (3) Obesity Status: Chronic Qualifiers: Code(s): E66.9 - Obesity, unspecified (4) Xerosis cutis Status: Chronic Code(s): L85.3 - Xerosis cutis Type of Wound Date of Service: 09/14/20 Chief Complaint: Bilateral foot ulcers and ankle wound left History of Wound: This 40-year-old female with significant past medical history of uncontrolled diabetes with neuropathy was seen today at the wound healing center for right heel fissure that is now an ulceration, right plantar second toe ulcer that followed a puncture injury, and left plantar medial foot ulcer. She also had dry peeling skin that is improving with lotion application. She has been wearing offloading shoe on the left foot and anodyne shoe right. She reports her right shoe is too big and her heel is slipping in and out of the shoe. She denies drainage to the right lower extremity. She is been washing her other left foot with soap and water and performing dressing changes as advised. Her diagnostic data results were requested from the [facility] and were obtained. She has a new scab that is starting to peel away and a wound is present to the outside aspect of her left ankle. Progress of Wound: Healed right second toe ulcer. Healed plantar left foot ulcer. Healed heel ulcer right. Stable wound identified left medial ankle. New stable wound identified left lateral ankle - Physical Exam Vital Signs Temp Pulse Resp BP 98 F 90 20 H 138/86 H 09/14/20 14:21 09/14/20 14:21 09/14/20 14:21 09/14/20 14:21 General: Alert, Oriented x3, Cooperative, No apparent distress HEENT: Atraumatic Extremities: No cyanosis, Capillary Refill Less than 3 Seconds, No Calf Tenderness, Diminished Peripheral Pulses, Edema Skin: Ulcer/ Wound - No purulence, erythema, streaking, odor, infection. Full epithelialization to right lower extremity and plantar left foot. Moist granular base to medial left ankle ulcer and new fibrous and granular ulcer to the lateral left ankle with minimal eschar. Adjacent skin is atrophic Wound Measurements and Assessment WC - Nurse 1 - General Ulcer Measurement Start: 09/14/20 14:19 Freq: Status: Active Protocol: Activity Type Activity Date Activity User E-Sign Co-Sign Detail Recorded Client Recorded Date Recorded By Document 09/14/20 14:21 DL [id number] 09/14/20 14:28 DL 09/14/20 14:21 Wound Center Nurse 1 [Ulcer Assessment] 4-left medial ankle -Current Size (cm) - Length 0.9 -Current Size (cm) - Width 0.6 -Current Size (cm) - Depth 0.1 -Total Square Cm 0.54 -Photo Taken No -Exudate Amt Small -Exudate Type Serosanguineous -Wound Margin Distinct, Outline Attached -Granulation Amt None Present (0 %) -Necrosis Amt Small (1-33%) -Necrotic Tissue Type Adherent Slough -Structure Exposed N/A -Texture (Mayra-wound Skin Appearance) Scarring -Moisture (Mayra-wound Skin Appearance No Abnormality ) -Color (Mayra-wound Skin Appearance) Rubor -Temperature (Mayra-wound Skin No Abnormality Appearance) (Pt Warm) -Tenderness on Palpation (Mayra-wound No Skin Appearance) -Ulcer Cleansing Wound Cleanser -Foul Odor after Cleansing No -Anesthetic Used 4% Lidocaine Solution 1. L plantar -Current Size (cm) - Length 0.2 -Current Size (cm) - Width 0.1 -Current Size (cm) - Depth 0.1 -Total Square Cm 0.02 -Photo Taken No -Exudate Amt None Present -Wound Margin Thickened -Granulation Amt Small (1-33%) -Granulation Quality Pale -Necrosis Amt Small (1-33%) -Necrotic Tissue Type Adherent Slough -Structure Exposed N/A -Texture (Mayra-wound Skin Appearance) Callus -Moisture (Mayra-wound Skin Appearance No Abnormality ) -Color (Mayra-wound Skin Appearance) No Abnormality -Temperature (Mayra-wound Skin No Abnormality Appearance) (Pt Warm) -Tenderness on Palpation (Mayra-wound No Skin Appearance) -Ulcer Cleansing Wound Cleanser -Foul Odor after Cleansing No -Anesthetic Used 4% Lidocaine Solution WC - Nurse 2 - General Ulcer CM Notes Start: 09/14/20 14:19 Freq: Status: Active Protocol: Activity Type Activity Date Activity User E-Sign Co-Sign Detail Recorded Client Recorded Date Recorded By Document 09/14/20 14:37 FAVIAN [id number] 09/14/20 14:46 FAVIAN 09/14/20 14:37 Wound Center Nurse 2 [Procedure/Treatment] 5-left lateral ankle -Time 14:43 -Correct Patient Yes -Correct Side, Site, Position Yes -Correct Procedure Yes -Procedure Performed Yes -Type of Procedure Debridement -Clinical Debridement Subcutaneous -Tissue Removed Subcutaneous -Post Debridement (cm) - Length 1.5 -Post Debridement (cm) - Width 0.2 -Post Debridement (cm) - Depth 0.1 -Total Square (Post) (cm) 0.30 -Area of Debridement (cm) - Length 1.5 -Area of Debridement (cm) - Width 0.2 -Total Square (Area) (cm) 0.30 -Tunneling No -Undermining/Tunneling No -Circular Undermining No -Wound/Ulcer Outcome Not Healed -Ulcer Cleansing Rinsed/ Irrigated with Saline -Foul Odor after Cleansing No -Bioengineered Tissue No -Bleeding Controlled with Pressure -Offloading No -Treatment Response Procedure Tolerated Well -Debridement - Subq, 1st 20sq cm No 4-left medial ankle -Time 14:40 -Correct Patient Yes -Correct Side, Site, Position Yes -Correct Procedure Yes -Procedure Performed Yes -Type of Procedure Debridement -Clinical Debridement Subcutaneous -Tissue Removed Subcutaneous -Post Debridement (cm) - Length 0.7 -Post Debridement (cm) - Width 0.5 -Post Debridement (cm) - Depth 0.1 -Total Square (Post) (cm) 0.35 -Area of Debridement (cm) - Length 0.7 -Area of Debridement (cm) - Width 0.5 -Total Square (Area) (cm) 0.35 -Tunneling No -Undermining/Tunneling No -Circular Undermining No -Wound/Ulcer Outcome Not Healed -Ulcer Cleansing Rinsed/ Irrigated with Saline -Foul Odor after Cleansing No -Bioengineered Tissue No -Bleeding Controlled with Pressure -Offloading No -Treatment Response Procedure Tolerated Well -Debridement - Subq, 1st 20sq cm No 1. L plantar -Correct Patient No -Correct Side, Site, Position No -Correct Procedure No -Procedure Performed No -Post Debridement (cm) - Length 0 -Post Debridement (cm) - Width 0 -Post Debridement (cm) - Depth 0 -Total Square (Post) (cm) 0 -Area of Debridement (cm) - Length 0 -Area of Debridement (cm) - Width 0 -Total Square (Area) (cm) 0 -Wound/Ulcer Outcome Healed- Epithelialized [See Physician Procedure note for Specifics] Pain Scale: 0-10 Numeric [Pain] -Is Patient Pain Free? Yes - Nurse 3 - General Ulcer D/C NN Start: 09/14/20 14:19 Freq: Status: Active Protocol: Activity Type Activity Date Activity User E-Sign Co-Sign Detail Recorded Client Recorded Date Recorded By Document 09/14/20 14:52 [facility] [id number] 09/14/20 14:53 [facility] 09/14/20 14:52 Wound Care Nurse 3 [Wound Dressing] 5-left lateral ankle -Ulcer Cleansing Rinsed/ Irrigated with Saline -Foul Odor after Cleansing No -Primary Dressing Applied C Hydrogel ($) -Primary Dressing Covered/Secured Dry Gauze, with Secured with Tape 4-left medial ankle -Ulcer Cleansing Rinsed/ Irrigated with Saline -Foul Odor after Cleansing No -Primary Dressing Applied Other -Other Dressing hydrogel -Primary Dressing Covered/Secured Dry Gauze, with Secured with Tape [Post Procedure Tolerated] -Treatment Response Procedure Tolerated Well Pain Scale: 0-10 Numeric [Pain] -Is Patient Pain Free? Yes - Visit Discharge [Visit Discharge Information] -Discharge Condition Stable -Ambulatory Status Ambulatory -Transportation Private Auto Musculoskeletal: No Tenderness to Palpation of Joints or Extremities, Muscle Wasting Neurological: - - Lack of normal epicritic sensation light touch is consistent with neuropathic status Psych/Mental Status: Normal Affect, Appropriate Debridement Note Post-Debridement Measurements/Treatment - Nurse 2 - General Ulcer CM Notes Start: 09/14/20 14:19 Freq: Status: Active Protocol: Activity Type Activity Date Activity User E-Sign Co-Sign Detail Recorded Client Recorded Date Recorded By Document 09/14/20 14:37 FAVIAN [id number] 09/14/20 14:46 FAVIAN 09/14/20 14:37 Wound Center Nurse 2 5-left lateral ankle -Time 14:43 -Correct Patient Yes -Correct Side, Site, Position Yes -Correct Procedure Yes -Procedure Performed Yes -Type of Procedure Debridement -Clinical Debridement Subcutaneous -Tissue Removed Subcutaneous -Post Debridement (cm) - Length 1.5 -Post Debridement (cm) - Width 0.2 -Post Debridement (cm) - Depth 0.1 -Total Square (Post) (cm) 0.30 -Area of Debridement (cm) - Length 1.5 -Area of Debridement (cm) - Width 0.2 -Total Square (Area) (cm) 0.30 -Tunneling No -Undermining/Tunneling No -Circular Undermining No -Wound/Ulcer Outcome Not Healed -Ulcer Cleansing Rinsed/ Irrigated with Saline -Foul Odor after Cleansing No -Bioengineered Tissue No -Bleeding Controlled with Pressure -Offloading No -Treatment Response Procedure Tolerated Well -Debridement - Subq, 1st 20sq cm No 4-left medial ankle -Time 14:40 -Correct Patient Yes -Correct Side, Site, Position Yes -Correct Procedure Yes -Procedure Performed Yes -Type of Procedure Debridement -Clinical Debridement Subcutaneous -Tissue Removed Subcutaneous -Post Debridement (cm) - Length 0.7 -Post Debridement (cm) - Width 0.5 -Post Debridement (cm) - Depth 0.1 -Total Square (Post) (cm) 0.35 -Area of Debridement (cm) - Length 0.7 -Area of Debridement (cm) - Width 0.5 -Total Square (Area) (cm) 0.35 -Tunneling No -Undermining/Tunneling No -Circular Undermining No -Wound/Ulcer Outcome Not Healed -Ulcer Cleansing Rinsed/ Irrigated with Saline -Foul Odor after Cleansing No -Bioengineered Tissue No -Bleeding Controlled with Pressure -Offloading No -Treatment Response Procedure Tolerated Well -Debridement - Subq, 1st 20sq cm No 1. L plantar -Correct Patient No -Correct Side, Site, Position No -Correct Procedure No -Procedure Performed No -Post Debridement (cm) - Length 0 -Post Debridement (cm) - Width 0 -Post Debridement (cm) - Depth 0 -Total Square (Post) (cm) 0 -Area of Debridement (cm) - Length 0 -Area of Debridement (cm) - Width 0 -Total Square (Area) (cm) 0 -Wound/Ulcer Outcome Healed- Epithelialized Pain Scale: 0-10 Numeric Is Patient Pain Free? Yes WC - Nurse 3 - General Ulcer D/C NN Start: 09/14/20 14:19 Freq: Status: Active Protocol: Activity Type Activity Date Activity User E-Sign Co-Sign Detail Recorded Client Recorded Date Recorded By Document 09/14/20 14:52 [facility] [id number] 09/14/20 14:53 [facility] 09/14/20 14:52 Wound Care Nurse 3 5-left lateral ankle -Ulcer Cleansing Rinsed/ Irrigated with Saline -Foul Odor after Cleansing No -Primary Dressing Applied C Hydrogel ($) -Primary Dressing Covered/Secured with Dry Gauze, Secured with Tape 4-left medial ankle -Ulcer Cleansing Rinsed/ Irrigated with Saline -Foul Odor after Cleansing No -Primary Dressing Applied Other -Other Dressing hydrogel -Primary Dressing Covered/Secured with Dry Gauze, Secured with Tape Treatment Response Procedure Tolerated Well Pain Scale: 0-10 Numeric Is Patient Pain Free? Yes WC - Visit Discharge Discharge Condition Stable Ambulatory Status Ambulatory Transportation Private Auto Wound debrided: medial and lateral lower leg Laterality: Left Wound Grade/Stage: grade 1 Type of Debridement: Excisional debridement Anesthesia Used: 5% Lidocaine Gel Depth: in the subcutaneous layer Percentage of wound debrided: 100 Instrument Used: #15 blade Tissue Removed: fibrous, devitalized subcutaneous, biofilm, slough Severity: Fat Layer Exposed Amount of bleeding with debridement: Mild Bleeding Controlled with: Pressure Patient tolerated procedure well Assessment/Plan Active Problems (Last Reviewed 09/07/19 @ 12:[address] Dayo Ellington MD) Diabetes mellitus with neuropathy (Acute) Xerosis cutis (Chronic) Ulcer of left lower extremity with fat layer exposed (Acute) Obesity (Chronic) Assessment: Right foot ulcer healed (plantar second toe). right heel ucler healed. Left foot ulcer healed. Improved medial ankle ulcer, left. Lateral ankle ulcer, left with fat layer exposed, no infection. Diabetes with neuropathy (uncontrolled, A1c 8.0%). Xerosis. Tinea pedis versus other inflammatory dermatitis verus xerosis. Peripheral vascular disease work-up in process. Malnutrition suspected Plan: I reviewed and discussed this patient's case and reviewed the diagnostic data. The ulcers were debrided in a subcutaneous excisional manner as noted in the clinical panel. To discontinue dressing care to the right foot and plantar left foot to apply hydrogel to medial and lateral left ankle sites to keep moist. To wash with soap and water. She was advised to offload and she already has a forefoot wedge offloading shoe that she can resume using for the left lower extremity. To avoid wearing shoes that do not fit properly. This will continue to contribute to heel callusing fissures and ulcers. If needed she needs to return the antibiotic to see if she can get a size adjustment. Her prior labs were reviewed from earlier this month and she did have a white blood cell count that was normal at 6.9. She had a a BMP also completed and her creatinine was normal at 0.93. I have requested her prior wound culture results and foot x-rays from the [facility]. This was reviewed and her x-ray in included 3 left foot views which demonstrated edema near the first digit without fractures or dislocations. Her right foot x-ray was reviewed from 06-07-2020 with no soft tissue emphysema, bony destruction or other osseous abnormalities. The report was reviewed from [facility]. 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 The MRSA was susceptible to tetracyclines clindamycin linezolid and Bactrim. She has decently palpable pulses however with chronic wounds and history of delayed healing I would recommend a noninvasive vascular study at this time. She reports she already had a stent and this was also requested from the [facility]. Her edema is noted and I recommended Tubigrip application which was dispensed for the left lower extremity today. Improvement in glucose management is needed for healing and also for overall health management. She relates her A1c was previously over 14% and is now 8%. I offered her a parking lot signaler referral that visualizes and diabetes management here at [facility]. She defers. Lac-Hydrin prescription was sent previously to her pharmacy at [id number] in [place]. To continue use. If she is not going to obtain a biopsy at the dermatology clinic, I offered her a biopsy here which would involve a 2 mm punch biopsy to confirm if this is a fungal condition or there is a different etiology. To return to clinic in 1 week or call sooner if she develops any signs of infection. Note: [email or web address] speech recognition field support engineer software was used to create portions of this document. Sound-alike and misspelled words, as well as other field support engineer errors may be contained in the documentation. 20 minutes was spent on this encounter. This included face to face and non face to face care including preparing for the visit, reviewing the history, performing the exam, counseling and providing education to the patient, family, or caregiver, ordering medications/test/ procedures if indicated as documented, communicating with other healthcare providers, documenting information in the medical record, interpreting / sharing this information when indicated as documented, and care coordination.
[2020-09-28 15:00] VITALS: BP 142/85; PULSE 102; TEMP 36.2; BMI 35.6
--- NOTE | 2020-09-28 16:55 | PCM.WC.PN ---
(1) Ulcer of left lower extremity with fat layer exposed Status: Acute Code(s): L97.922 - Non-pressure chronic ulcer of unspecified part of left lower leg with fat layer exposed (2) Diabetes mellitus with neuropathy Status: Acute Code(s): E11.40 - Type 2 diabetes mellitus with diabetic neuropathy, unspecified (3) Obesity Status: Chronic Qualifiers: Code(s): E66.9 - Obesity, unspecified (4) Xerosis cutis Status: Chronic Code(s): L85.3 - Xerosis cutis Type of Wound Date of Service: 09/28/20 Chief Complaint: left ankle ulcers History of Wound: This 40-year-old female with significant past medical history of uncontrolled diabetes with neuropathy was seen today at the wound healing center for medial and lateral ankle ulcers. Her other bilateral ulcers remain healed. She also had dry peeling skin that is improving with lotion application. She relates she is doing well. Progress of Wound: All ulcers are healed today - Physical Exam Vital Signs Temp Pulse Resp BP 97.2 F L 102 H 20 H 142/85 H 09/28/20 15:00 09/28/20 15:00 09/14/20 14:21 09/28/20 15:00 General: Alert, Oriented x3, Cooperative, No apparent distress HEENT: Atraumatic Extremities: No cyanosis, Capillary Refill Less than 3 Seconds, No Calf Tenderness, Diminished Peripheral Pulses, Edema - Mild Skin: Ulcer/ Wound - Full epithelialization is noted to bilateral lower extremities. No purulence, erythema, streaking, odor, infection. Ulcers are healed Wound Measurements and Assessment WC - Nurse 1 - General Ulcer Measurement Start: 09/14/20 14:19 Freq: Status: Active Protocol: Activity Type Activity Date Activity User E-Sign Co-Sign Detail Recorded Client Recorded Date Recorded By Document 09/28/20 15:00 KR [id number] 09/28/20 15:02 KR 09/28/20 15:00 Wound Center Nurse 1 [Ulcer Assessment] 5-left lateral ankle -Current Size (cm) - Length 0.6 -Current Size (cm) - Width 0.3 -Current Size (cm) - Depth 0.1 -Total Square Cm 0.18 -Exudate Amt None Present -Wound Margin Distinct, Outline Attached -Granulation Amt Small (1-33%) -Granulation Quality Red -Texture (Mayra-wound Skin Appearance) Assessed, Scarring -Moisture (Mayra-wound Skin Appearance No Abnormality, ) Assessed -Color (Mayra-wound Skin Appearance) No Abnormality, Assessed -Temperature (Mayra-wound Skin No Abnormality Appearance) (Pt Warm) -Tenderness on Palpation (Mayra-wound No Skin Appearance) -Ulcer Cleansing Rinsed/ Irrigated with Saline -Foul Odor after Cleansing No -Anesthetic Used 4% Lidocaine Solution 4-left medial ankle -Current Size (cm) - Length 0.1 -Current Size (cm) - Width 0.1 -Current Size (cm) - Depth 0.1 -Total Square Cm 0.01 -Exudate Amt None Present -Wound Margin Distinct, Outline Attached -Granulation Amt Small (1-33%) -Granulation Quality Red -Necrosis Amt None Present (0 %) -Texture (Mayra-wound Skin Appearance) Assessed, Scarring -Moisture (Mayra-wound Skin Appearance No Abnormality, ) Assessed -Color (Mayra-wound Skin Appearance) No Abnormality -Temperature (Mayra-wound Skin No Abnormality Appearance) (Pt Warm) -Tenderness on Palpation (Mayra-wound No Skin Appearance) -Ulcer Cleansing Rinsed/ Irrigated with Saline -Foul Odor after Cleansing No -Anesthetic Used 4% Lidocaine Solution WC - Nurse 2 - General Ulcer CM Notes Start: 09/14/20 14:19 Freq: Status: Active Protocol: Activity Type Activity Date Activity User E-Sign Co-Sign Detail Recorded Client Recorded Date Recorded By Document 09/28/20 15:07 FAVIAN [id number] 09/28/20 15:09 FAVIAN 09/28/20 15:07 Wound Center Nurse 2 [Procedure/Treatment] 5-left lateral ankle -Correct Patient No -Correct Side, Site, Position No -Correct Procedure No -Procedure Performed No -Post Debridement (cm) - Length 0 -Post Debridement (cm) - Width 0 -Post Debridement (cm) - Depth 0 -Total Square (Post) (cm) 0 -Area of Debridement (cm) - Length 0 -Area of Debridement (cm) - Width 0 -Total Square (Area) (cm) 0 -Wound/Ulcer Outcome Healed- Epithelialized 4-left medial ankle -Correct Patient No -Correct Side, Site, Position No -Correct Procedure No -Procedure Performed No -Post Debridement (cm) - Length 0 -Post Debridement (cm) - Width 0 -Post Debridement (cm) - Depth 0 -Total Square (Post) (cm) 0 -Area of Debridement (cm) - Length 0 -Area of Debridement (cm) - Width 0 -Total Square (Area) (cm) 0 -Wound/Ulcer Outcome Healed- Epithelialized [See Physician Procedure note for Specifics] Pain Scale: 0-10 Numeric [Pain] -Is Patient Pain Free? Yes - Nurse 3 - General Ulcer D/C NN Start: 09/14/20 14:19 Freq: Status: Active Protocol: Activity Type Activity Date Activity User E-Sign Co-Sign Detail Recorded Client Recorded Date Recorded By Document 09/28/20 15:14 [facility] [id number] 09/28/20 15:14 [facility] 09/28/20 15:14 Wound Care Nurse 3 [Post Procedure Tolerated] -Treatment Response Procedure Tolerated Well Pain Scale: 0-10 Numeric [Pain] -Is Patient Pain Free? Yes - Visit Discharge [Visit Discharge Information] -Discharge Condition Stable -Ambulatory Status Ambulatory -Transportation Private Auto Musculoskeletal: No Tenderness to Palpation of Joints or Extremities, Muscle Wasting Neurological: - - Altered Psych/Mental Status: Normal Affect, Appropriate Debridement Note Post-Debridement Measurements/Treatment - Nurse 2 - General Ulcer CM Notes Start: 09/14/20 14:19 Freq: Status: Active Protocol: Activity Type Activity Date Activity User E-Sign Co-Sign Detail Recorded Client Recorded Date Recorded By Document 09/14/20 14:37 [id number] 09/14/20 14:46 Document 09/28/20 15:07 [id number] 09/28/20 15:09 09/14/20 09/28/20 14:37 15:07 Wound Center Nurse 2 5-left lateral ankle -Time 14:43 -Correct Patient Yes No -Correct Side, Site, Position Yes No -Correct Procedure Yes No -Procedure Performed Yes No -Type of Procedure Debridement -Clinical Debridement Subcutaneous -Tissue Removed Subcutaneous -Post Debridement (cm) - Length 1.5 0 -Post Debridement (cm) - Width 0.2 0 -Post Debridement (cm) - Depth 0.1 0 -Total Square (Post) (cm) 0.30 0 -Area of Debridement (cm) - Length 1.5 0 -Area of Debridement (cm) - Width 0.2 0 -Total Square (Area) (cm) 0.30 0 -Tunneling No -Undermining/Tunneling No -Circular Undermining No -Wound/Ulcer Outcome Not Healed Healed- Epithelialized -Ulcer Cleansing Rinsed/ Irrigated with Saline -Foul Odor after Cleansing No -Bioengineered Tissue No -Bleeding Controlled with Pressure -Offloading No -Treatment Response Procedure Tolerated Well -Debridement - Subq, 1st 20sq cm No 4-left medial ankle -Time 14:40 -Correct Patient Yes No -Correct Side, Site, Position Yes No -Correct Procedure Yes No -Procedure Performed Yes No -Type of Procedure Debridement -Clinical Debridement Subcutaneous -Tissue Removed Subcutaneous -Post Debridement (cm) - Length 0.7 0 -Post Debridement (cm) - Width 0.5 0 -Post Debridement (cm) - Depth 0.1 0 -Total Square (Post) (cm) 0.35 0 -Area of Debridement (cm) - Length 0.7 0 -Area of Debridement (cm) - Width 0.5 0 -Total Square (Area) (cm) 0.35 0 -Tunneling No -Undermining/Tunneling No -Circular Undermining No -Wound/Ulcer Outcome Not Healed Healed- Epithelialized -Ulcer Cleansing Rinsed/ Irrigated with Saline -Foul Odor after Cleansing No -Bioengineered Tissue No -Bleeding Controlled with Pressure -Offloading No -Treatment Response Procedure Tolerated Well -Debridement - Subq, 1st 20sq cm No 1. L plantar -Correct Patient No -Correct Side, Site, Position No -Correct Procedure No -Procedure Performed No -Post Debridement (cm) - Length 0 -Post Debridement (cm) - Width 0 -Post Debridement (cm) - Depth 0 -Total Square (Post) (cm) 0 -Area of Debridement (cm) - Length 0 -Area of Debridement (cm) - Width 0 -Total Square (Area) (cm) 0 -Wound/Ulcer Outcome Healed- Epithelialized Pain Scale: 0-10 Numeric Is Patient Pain Free? Yes Yes WC - Nurse 3 - General Ulcer D/C NN Start: 09/14/20 14:19 Freq: Status: Active Protocol: Activity Type Activity Date Activity User E-Sign Co-Sign Detail Recorded Client Recorded Date Recorded By Document 09/14/20 14:52 [facility] [id number] 09/14/20 14:53 BM Document 09/28/20 15:14 [facility] [id number] 09/28/20 15:14 [facility] 09/14/20 09/28/20 14:52 15:14 Wound Care Nurse 3 5-left lateral ankle -Ulcer Cleansing Rinsed/ Irrigated with Saline -Foul Odor after Cleansing No -Primary Dressing Applied C Hydrogel ($) -Primary Dressing Covered/Secured with Dry Gauze, Secured with Tape 4-left medial ankle -Ulcer Cleansing Rinsed/ Irrigated with Saline -Foul Odor after Cleansing No -Primary Dressing Applied Other -Other Dressing hydrogel -Primary Dressing Covered/Secured with Dry Gauze, Secured with Tape Treatment Response Procedure Procedure Tolerated Well Tolerated Well Pain Scale: 0-10 Numeric Is Patient Pain Free? Yes Yes WC - Visit Discharge Discharge Condition Stable Stable Ambulatory Status Ambulatory Ambulatory Transportation Private Auto Private Auto No debridement was completed today - All ulcers are healed Assessment/Plan Active Problems (Last Reviewed 09/07/19 @ 12:[address] Dayo Ellington MD) Diabetes mellitus with neuropathy (Acute) Xerosis cutis (Chronic) Ulcer of left lower extremity with fat layer exposed (Acute) Obesity (Chronic) Assessment: Right foot ulcer healed (plantar second toe). right heel ucler healed. Left foot ulcer healed. medial ankle ulcer, left healed. Lateral ankle ulcer, left healed. Diabetes with neuropathy (uncontrolled, A1c 8.0%). xerosis. Peripheral vascular disease with self-reported prior stent placement. Malnutrition suspected Plan: I reviewed and discussed this patient's case and reviewed the diagnostic data. The ulcers have healed and no debridement was necessary today. To discontinue dressing care. To wash with soap and water. To maintain good skin integrity with daily moisturizing and foot checks. I advised her to wear compression to maintain controlled lower extremity edema with compression stockings or Tubigrip. She would like to follow-up with the [facility] to proceed forward with routine podiatry checks and updated shoe gear. She is reassured no infection or ulcers are noted today. It is noted she reports she already had stenting placed to gain additional perfusion the lower extremities at the [facility]. She is discharged from the wound healing center at this and is doing well. Note: [employer] speech recognition tugboat mate software was used to create portions of this document. Sound-alike and misspelled words, as well as other tugboat mate errors may be contained in the documentation. 21 minutes was spent on this encounter. This included face to face and non face to face care including preparing for the visit, reviewing the history, performing the exam, counseling and providing education to the patient, family, or caregiver, ordering medications/test/ procedures if indicated as documented, communicating with other healthcare providers, documenting information in the medical record, interpreting / sharing this information when indicated as documented, and care coordination.
== END 2020-10-07 23:59 ==
LOC: WC 14:45
PROVIDERS: PCP Family Medicine; Visit Provider Podiatrist
DX: E11.622 Type 2 diabetes mellitus with other skin ulcer (principal); E11.40 Type 2 diabetes mellitus with diabetic neuropathy, unspecified; L85.3 Xerosis cutis; E66.9 Obesity, unspecified; L97.822 Non-pressure chronic ulcer of other part of left lower leg with fat layer exposed; L97.322 Non-pressure chronic ulcer of left ankle with fat layer exposed; E11.51 Type 2 diabetes mellitus with diabetic peripheral angiopathy without gangrene
CPT/HCPCS: 99213; G0463

== ENCOUNTER 2020-12-11 14:19 | Emergency (ER) | payer MEDICAID, SELFPAY ==
[2020-12-11 14:20] VITALS: BP 133/79; PULSE 89; RESP 14; TEMP 37.5; O2SAT 99; BMI 33.7
--- NOTE | 2020-12-11 15:39 | EX.ED.DYSGE1 ---
HPI History of Present Illness Chief Complaint: Lower Extremity Injury Informant: patient Narrative Narrative: Patient is a 40-year-old female with a past medical history of diabetes who presents to the emergency department for left heel pain. She states that 2 days ago she felt a pop in it whenever she was ambulating. She denies any known injury. She not roll her ankle. She states she is having a hard time putting any weight on the foot now. The majority of the pain is over the heel. She does have some radiation into the ankle. She states she has chronic problems with her feet bilaterally. She does have neuropathy. She denies any change in sensation. No pain going up the legs. She denies any other injury. She has been taking ibuprofen for this which has not been giving her significant relief. [facility] Medical History (Updated 12/12/20 @ 23:[address] Claude Loomis DO) Diabetes Home Medications insulin lispro [Humalog] 12 - 25 unit SQ TID 08/26/18 [History Last Taken 08/26/18 18 UNIT] nystatin-triamcinolone 30 gm TP BID #1 cream.gm. 05/24/20 [Rx Last Taken Unknown] empagliflozin 10 mg PO DAILY 08/17/20 [History Last Taken Unknown] insulin degludec 65 unit SQ QHS 08/17/20 [History Last Taken Unknown] Allergy/AdvReac Type Severity Reaction Status Date / Time Sulfa (Sulfonamide Allergy Hives Verified 12/11/20 14:20 Antibiotics) doxycycline AdvReac Rash Verified 12/11/20 14:20 Family History Father Diabetes Surgical History delivery delivered History of cholecystectomy Tubal ligation status Social History Smoking Status: Never smoker alcohol intake: never substance use type: does not use caffeine: Yes frequency: 3-4 times per week seatbelt use: always do you feel safe at home: Yes additional social history: - Unemployed ROS ROS ED Constitutional Constitutional ED: Denies chills or fever(s) Eyes Eyes: Denies change in vision ENT ENT ED: Denies epistaxis or rhinorrhea Cardiovascular Cardiovascular: Denies chest pain or palpitations Respiratory/Chest Respiratory/Chest: Denies cough, dyspnea or dyspnea on exertion Gastrointestinal Gastrointestinal: Denies abdominal pain, diarrhea, nausea or vomiting Genitourinary Genitourinary ED: Denies dysuria, hematuria or urinary frequency Musculoskeletal Musculoskeletal: Reports arthralgias; Denies back pain or neck pain Integumentary Denies rash Neurologic Neurologic: Denies dizziness, headache(s) or weakness EXAM Physical Exam Const Vital Signs: 12/11/20 14:20 Temperature 99.5 F H Temperature Source Temporal Pulse Rate 89 Respiratory Rate 14 Blood Pressure 133/79 H Blood Pressure Mean 97 Pulse Ox 99 Positive well nourished and well developed General Appearance ED: well developed and NAD HEENT Reports normocephalic, head/scalp atraumatic and moist mucous membranes Eyes PERRL and EOMs intact bilaterally Neck no lymphadenopathy and supple General: Negative for tenderness Chest Wall inspection of chest normal Resp normal respiratory effort and clear to auscultation bilaterally Auscultation: Negative for rales, rhonchi or wheezes Cardio regular rate, regular rhythm and no murmurs Back/Spine no CVA tenderness Extremity normal to inspection Extremity Narrative: Tenderness to palpation over calcaneus. No pain over base of fifth metatarsal. No obvious deformity. She is neurovascularly intact. 5 out of 5 muscle strength throughout. General Extremety ED: Negative for edema General Extremity: Negative for edema Neuro no sensory deficits noted Sensorium / Orientation: alert Motor Exam: strength 5/5 throughout Psych mental status grossly normal Skin no rashes or lesions noted MDM MDM MDM Narrative Medical decision making narrative: Patient presents to the ED for nontraumatic foot pain. She did feel a pop in it at the onset of the symptoms. Will check x-ray to evaluate for avulsion fracture. X-ray of the ankle and foot interpreted by radiologist. They interpreted this as os trigonum and heel spurs. Consider posterior talar syndrome. Patient placed in walking boot and will be referred to podiatry. She states that she has her own cone baker machine and will follow up with them. Return precautions are reviewed. Discharged home in stable condition. Discharge Plan Triage Chief Complaint: Lower Extremity Injury ED Provider: Claude Loomis Dx/Rx/DC Orders Clinical Impression: Heel spur, Foot pain Instructions: ED Heel Spur Prescriptions: No Action insulin lispro [Humalog U-100 Insulin] 100 UNIT/ML solution 12 - 25 unit SQ TID RF: 0 nystatin-triamcinolone 30 GM cream 30 gm TP BID Qty: 1 RF: 0 empagliflozin 10 MG tablet 10 mg PO DAILY RF: 0 insulin degludec 100 UNIT/ML solution 65 unit SQ QHS RF: 0 Primary Care Provider: Fernando Jenkins Referrals: Fernando Jenkins MD [Primary Care Provider] - Activity Restrictions/Additional Instructions: Posterior talar syndrome suspected, please follow up with your cone baker machine. Disposition Disposition: Home, Self Care Discharge Date/Time: 12/11/20 17:04
--- NOTE | 2020-12-11 15:46 | RAD_ITS ---
STUDY: X-RAY - LEFT FOOT CLINICAL: Female, 40 years old. Heel pain, felt pop TECHNIQUE: 3 view(s) of the foot. COMPARISON: 01/04/2020. FINDINGS: Small posterior and moderate plantar heel spur. Normal talus,, and tarsal bones. Prominent posterior talar process or os trigonum. Normal visualized subtalar, talonavicular, calcaneocuboid, tarsal and tarsometatarsal articulations. Normal metatarsi. Normal metatarsophalangeal joint of the great toe. Normal tibial and fibular sesamoid bones. Normal interphalangeal joint of the great toe. Normal phalanges of the great toe. Normal second through fifth metatarsophalangeal joints. Normal interphalangeal joints and phalanges of the lesser toes. The soft tissue structures are unremarkable. RAD/Foot min 3 Views IMPRESSION: Heel spur. Prominent posterior talar process. Consider posterior talar syndrome. Electronically Signed: Bk Carter MD at 16:35 EDT , Service support ,
--- NOTE | 2020-12-11 16:00 | RAD_ITS ---
STUDY: X-RAY - LEFT ANKLE REASON FOR EXAM: Female, 40 years old. Nontraumatic pain TECHNIQUE: 3 view(s) of the ankle. COMPARISON: None. FINDINGS: Normal visualized distal tibia and fibula. Normal medial and lateral malleoli. Normal tibiotalar articulation and ankle mortise. Normal visualized talus and calcaneus. Os trigonum. heel spurs. The visualized subtalar, talonavicular, calcaneocuboid and tarsal articulations are normal. The soft tissue structures are unremarkable. RAD/Ankle min 3 Views IMPRESSION: Os trigonum and heel spurs. Consider posterior talar syndrome. Electronically Signed: Bk Carter MD at 16:42 EDT , Service support ,
[2020-12-11 17:03] VITALS: RESP 18
== END 2020-12-11 17:04 | disposition home or self-care (01) ==
PROVIDERS: Emergency Provider Emergency Medicine; PCP Family Medicine
DX: M77.32 Calcaneal spur, left foot (principal); E11.9 Type 2 diabetes mellitus without complications; Z79.4 Long term (current) use of insulin; Z79.899 Other long term (current) drug therapy; Z56.0 Unemployment, unspecified
CPT/HCPCS: 73610; 73630; 99283

== ENCOUNTER 2021-05-30 11:59 | Emergency (ER) | payer MEDICAID, SELFPAY ==
[2021-05-30 12:00] VITALS: BP 141/91; PULSE 108; RESP 20; TEMP 37.1; O2SAT 100; BMI 32.3
--- NOTE | 2021-05-30 12:30 | RAD_ITS ---
STUDY: X-RAY CHEST REASON FOR EXAM: Female, 40 years old. Cough TECHNIQUE: Single AP portable view of the chest. COMPARISON: Comparison is made with prior study dated 08/20/2019. FINDINGS: EKG electrodes are seen. The lungs are clear and expanded. There is no demonstrated pleural abnormality. Normal size heart. Normal mediastinum and sharon. Normal visualized pulmonary arteries. Normal visualized aortic arch and descending thoracic aorta. Normal visualized thoracic spine. Normal visualized ribs, clavicles, and shoulders. There is no demonstrated abnormality of the visualized soft tissue structures of the upper abdomen. RAD/Chest 1 View (Portable) IMPRESSION: Normal x-ray examination of the chest. Electronically Signed: Ketan Rosenberg MD at 14:16 EST , Service support ,
--- NOTE | 2021-05-30 13:19 | EDS_ITS ---
HPI History of Present Illness Chief Complaint: Shortness of Breath Informant: patient Onset/Context/Timing Onset: Days (1.5) Context: Gradual Onset Timing: Continuous Quality: Aching Location: Generalized Worsened by: Nothing Relieved by: Nothing Narrative Narrative: Patient presents with sore throat and cough that has been getting worse over the past day and a half. Patient admits to some generalized aching. Patient denies any sputum production. Patient mitts to subjective fevers but did not take her temperature at home. Patient states her taste has been diminished but she has not completely lost her sense of taste or smell. Patient states nothing makes it better nothing makes it worse. Patient admits to myalgias and a headache. [facility] Medical History (Updated 05/30/21 @ 14:[address] Jonn Granados DO) Diabetes Home Medications insulin lispro [Humalog] 12 - 25 unit SQ TID 08/26/18 [History Last Taken 08/26/18 18 UNIT] nystatin-triamcinolone 30 gm TP BID #1 cream.gm. 05/24/20 [Rx Last Taken Unknown] empagliflozin 10 mg PO DAILY 08/17/20 [History Last Taken Unknown] insulin degludec 65 unit SQ QHS 08/17/20 [History Last Taken Unknown] Allergy/AdvReac Type Severity Reaction Status Date / Time Sulfa (Sulfonamide Allergy Hives Verified 05/30/21 12:02 Antibiotics) doxycycline AdvReac Rash Verified 05/30/21 12:02 Family History Father Diabetes Surgical History delivery delivered History of cholecystectomy Tubal ligation status Social History Smoking Status: Never smoker alcohol intake: never substance use type: does not use caffeine: Yes frequency: 3-4 times per week seatbelt use: always do you feel safe at home: Yes additional social history: - Unemployed ROS ROS ED Constitutional Constitutional ED: Reports fever(s) and subjective; Denies chills Eyes Eyes: Denies blurry vision or change in vision ENT ENT ED: Reports sore throat; Denies rhinorrhea Cardiovascular Cardiovascular: Denies chest pain or palpitations Respiratory/Chest Respiratory/Chest: Reports cough; Denies dyspnea Gastrointestinal Gastrointestinal: Denies nausea or vomiting Genitourinary Genitourinary ED: Denies dysuria or hematuria Musculoskeletal Musculoskeletal: Reports myalgias; Denies back pain or neck pain Integumentary Denies abscess or rash Neurologic Neurologic: Reports headache(s); Denies weakness Allergic/Immunologic Allergic/Immunologic ED: Denies mouth swelling or urticaria EXAM Physical Exam Const Vital Signs: 05/30/21 12:00 05/30/21 12:23 Temperature 98.7 F Temperature Source Temporal Pulse Rate 108 H Respiratory Rate 20 H Respiratory Effort Normal Respiratory Depth Normal Respiratory Pattern Normal Blood Pressure 141/91 H Blood Pressure Mean 107 Pulse Ox 100 Oxygen Delivery Method Room Air Positive well nourished and well developed General Appearance ED: well developed HEENT Reports moist mucous membranes Neck supple and no JVD Resp normal respiratory effort and clear to auscultation bilaterally Cardio regular rate, regular rhythm and no murmurs GI normal to inspection, nondistended, normoactive bowel sounds and non-tender Palpation: soft Extremity normal to inspection General Extremety ED: Negative for edema or tenderness General Extremity: Negative for edema Neuro oriented x3, CN's II-XII intact bilaterally and no sensory deficits noted Sensorium / Orientation: alert Motor Exam: strength 5/5 throughout Psych mental status grossly normal Skin no rashes or lesions noted MDM MDM MDM Narrative Medical decision making narrative: Patient was given albuterol inhaler here. Patient was given Tylenol. CBC was within normal limits. Comprehensive metab olic profile showed elevated glucose of 332. Lactate was normal. COVID-19 rapid antigen was obtained and was positive. Portable 1 view chest x-ray was obtained. On my interpretation, lung painting are clear. There is normal cardiac silhouette. Bony thorax is normal. There is no acute process noted. Radiologist also interpreted the x-ray and agrees. Patient qualifies for monoclonal antibody infusion. Patient was given a referral for this. Patient was instructed to continue the inhaler as needed for any shortness of breath. Patient was instructed to continue Tylenol as needed for any pain or fevers. Patient understands and is agreeable with the plan. Patient was instructed to follow-up with her primary care physician in 5 to 7 days. Patient was instructed to return if worse in any way. The following information was communicated to the patient or caregiver: Monoclonal antibody infusion is not an FDA approved drug. The FDA has authorized the emergency use of monoclonal antibody therapy. The patient had the option to refuse or accept treatment with monoclonal antibody therapy. The patient was informed that the number of people treated with monoclonal antibody therapy at this time is small. The potential benefits and the potential risks of monoclonal antibody therapy are not fully known. Potential benefits of monoclonal antibody include a reduced risk of progressing to severe COVID-19 infection. Potential risks or side effects of monoclonal antibody therapy include allergic reactions, side effects from injection including brief pain, bleeding, bruising of the skin, soreness, swelling, possible infection at the infusion site. The patient stated understanding of this information communicated and wished to proceed with monoclonal antibody infusion therapy. The patient is appropriate for the Monoclonal Antibody Infusion. The patient states understanding of this information communicated and wishes to proceed with monoclonal antibody infusion therapy. Patient agrees to receive either Balanivimab/Etesvimab or Casirivimab/Imdevimab upon availability. Lab Data Attestation: I reviewed the patient's lab results. Labs: Laboratory Results - last 24 hr 05/30/21 05/30/21 05/30/21 13:10 13:10 13:10 WBC 5.5 RBC 4.60 Hgb 14.1 Hct 41.5 MCV 90.2 MCH 30.7 MCHC 34.0 RDW Std Deviation 44.3 H RDW Coeff of Pricila 13.4 Plt Count 275 MPV 11.5 Immature Gran % (Auto) 0.500 Neut % (Auto) 73.0 H Lymph % (Auto) 12.5 L Lamb % (Auto) 12.6 H Eos % (Auto) 0.5 Baso % (Auto) 0.9 Absolute Neuts (auto) 4.0 Absolute Lymphs (auto) 0.68 L Nucleated RBC % 0 Sodium 135 L Potassium 4.0 Chloride 101 Carbon Dioxide 29.0 Anion Gap 5 BUN 8 Creatinine 0.63 Estim Creat Clear Calc 108.90 Est GFR (MDRD) Af Amer 133 Est GFR (MDRD) Non-Af 110 BUN/Creatinine Ratio 12.7 Glucose 332 H Lactic Acid 1.1 Calcium 8.5 Total Bilirubin 0.50 AST 31 ALT 39 Alkaline Phosphatase 95 Total Protein 7.2 Albumin 2.8 L Globulin 4.4 H Albumin/Globulin Ratio 0.6 L Radiography Chest X-Ray - ED: 1 View, Read by ED Physician, Read by Radiologist and Normal Diagnostic Testing: Clinical Impression(s) from Imaging Studies Chest X-Ray 05/30/21 12:30 IMPRESSION: Normal x-ray examination of the chest. Electronically Signed: Ketan Rosenberg MD at 14:16 EST , Service support , Discharge Plan Triage Chief Complaint: Shortness of Breath ED Provider: Jonn Granados Dx/Rx/DC Orders Clinical Impression: COVID-19 Instructions: Coronavirus Disease 2019 (COVID-19): Overview Prescriptions: No Action insulin lispro [Humalog U-100 Insulin] 100 UNIT/ML solution 12 - 25 unit SQ TID RF: 0 nystatin-triamcinolone 30 GM cream 30 gm TP BID Qty: 1 RF: 0 empagliflozin 10 MG tablet 10 mg PO DAILY RF: 0 insulin degludec 100 UNIT/ML solution 65 unit SQ QHS RF: 0 Stand Alone Forms: Monoclonal Antibody Referral Primary Care Provider: Fernando Jenkins Referrals: Fernando Jenkins MD [Primary Care Provider] - 5-7 Days Disposition Disposition: Home, Self Care
[2021-05-30 13:32] LABS: Absolute Lymphocyte Count 0.68 X10^3/uL (0.83-4.51); Basophil# 0.05 X10^3/uL; Basophil% 0.9 % (0-1); Eosinophil# 0.03 X10^3/uL; Eosinophils% 0.5 % (0-5); Hematocrit 41.5 % (37-47); Hemoglobin 14.1 g/dL (12.0-15.0); Lymphocyte # 0.68 X10^3/ul (0.83-4.51); Lymphocyte % 12.5 % (19-41); Mean Corpuscular Hgb 30.7 pg (27.0-32.0); Mean Corpuscular Volume 90.2 fL (81-99); Mean Platelet Vol. 11.5 fl (6.2-12.0); Monocyte# 0.69 X10^3/uL; Monocyte% 12.6 % (0-10); NRBC Flagged by Analyzer 0 % (0-5); Neutrophil # 3.98 X10^3/uL (2.7-7.7); Platelet Count 275 K/mm3 (150-450); RBC Distribution Width CV 13.4 % (11.6-14.6); RBC Distribution Width SD 44.3 fl (35.1-43.9); White Blood Count 5.5 K/mm3 (4.4-11.0)
[2021-05-30] MEDS: Acetaminophen 500 MG Tablet 1000 MG PO (13:35)
[2021-05-30 13:43] LABS: ALB/GLOB Ratio 0.6 RATIO (0.9-2.4); AST(SGOT) 31 U/L (15-37); Alanine Aminotransfer ALT/SGPT 39 U/L (13-56); Albumin, Serum 2.8 g/dL (3.2-5.0); Alkaline Phosphatase 95 U/L (45-117); Anion Gap 5 (5-15); BUN 8 mg/dL (7-18); BUN/Creat Ratio 12.7 RATIO (10-20); Calcium,Total 8.5 mg/dL (8.5-10.1); Chloride 101 mmol/L (98-107); Creatinine, Serum 0.63 mg/dL (0.55-1.02); EST Glomerular Filtration Rate 110 mL/min (>60); Est Glom Filt Rate - Afr Amer 133 mL/min (>60); Globulin 4.4 g/dL (2.2-4.2); Glucose 332 mg/dL (74-106); Protein, Total 7.2 g/dL (6.4-8.2); Sodium Level 135 mmol/L (136-145)
[2021-05-30 13:45] LABS: Lactic Acid 1.1 mmol/L (0.4-1.9)
[2021-05-30 14:42] VITALS: BP 123/70; PULSE 105; RESP 26; O2SAT 97
== END 2021-05-30 14:54 | disposition home or self-care (01) ==
PROVIDERS: Emergency Provider Emergency Medicine; PCP Family Medicine
DX: U07.1 COVID-19 (principal); E11.9 Type 2 diabetes mellitus without complications; Z79.4 Long term (current) use of insulin; Z56.0 Unemployment, unspecified
CPT/HCPCS: 71045; 80053; 83605; 85025; 87426; 99284; A4216

== ENCOUNTER 2021-06-06 17:24 | Outpatient (CLI) | payer MEDICAID, SELFPAY ==
[2021-06-06 17:39] VITALS: BP 119/94; PULSE 98; RESP 24; TEMP 36.5; O2SAT 93; BMI 32.3
[2021-06-06] MEDS: 0.9% Saline Lock 10 ML Syringe IV (17:49)
[2021-06-06 18:30] VITALS: BP 130/84; PULSE 83; RESP 16; TEMP 37.1; O2SAT 94
[2021-06-06 19:09] VITALS: BP 139/88; PULSE 94; RESP 16; TEMP 36.9; O2SAT 93
== END 2021-06-06 19:30 | disposition home or self-care (01) ==
LOC: MS3OUT 17:24 → MS3 17:25
PROVIDERS: PCP Family Medicine; Referring Provider Nurse Practitioner Adult Health; Visit Provider Nurse Practitioner Adult Health
DX: U07.1 COVID-19 (principal)
CPT/HCPCS: J7050; M0245; Q0245; A4216

== ENCOUNTER 2022-03-20 07:51 | Emergency (ER) | payer MEDICAID, SELFPAY ==
[2022-03-20 07:52] VITALS: BP 132/89; PULSE 86; RESP 18; TEMP 35.9; O2SAT 100; BMI 34.5
--- NOTE | 2022-03-20 08:10 | EDS_ITS ---
HPI History of Present Illness Chief Complaint: Abscess Informant: patient Onset/Context/Timing Onset: Weeks (2) Context: Gradual Onset Timing: Continuous Quality: Stabbing Location: Left chest Worsened by: Nothing Relieved by: Nothing Narrative Narrative: Patient presents with an abscess to her left lower chest under her left breast. Patient states this has been present for the past 2 weeks. Patient states she is on Keflex for this. Patient states it is starting to drain. Patient also admits to a diffuse rash across her abdomen and bilateral upper extremities. Patient denies any new soaps, laundry detergents, fabric softeners, or other new exposures. Patient states the rash started about the same time as the abscess. Patient denies any difficulty breathing or difficulty swallowing. Patient denies any fevers or chills. Patient does admit to mild headache. [facility] Medical History (Updated 03/20/22 @ 08:[address] Jonn Granados DO) Diabetes Home Medications insulin lispro 100 unit/mL subcutaneous solution (Humalog U-100 Insulin) 12 - 25 unit SQ TID 08/26/18 [History Last Taken 08/26/18 18 UNIT] empagliflozin 10 mg tablet 10 mg PO DAILY 08/17/20 [History Last Taken Unknown] insulin degludec 100 unit/mL subcutaneous solution 65 unit SQ QHS 08/17/20 [History Last Taken Unknown] clindamycin HCl 300 mg capsule (Cleocin HCl) 300 mg PO Q6H #40 CAPSULES 03/20/22 [Rx Last Taken Unknown] Allergy/AdvReac Type Severity Reaction Status Date / Time Sulfa (Sulfonamide Allergy Hives Verified 03/20/22 07:52 Antibiotics) doxycycline AdvReac Rash Verified 03/20/22 07:52 Family History Father Diabetes Surgical History delivery delivered History of cholecystectomy Tubal ligation status Social History Smoking Status: Never smoker alcohol intake: never substance use type: does not use caffeine: Yes frequency: 3-4 times per week seatbelt use: always do you feel safe at home: Yes additional social history: - Unemployed ROS ROS ED Constitutional Constitutional ED: Denies chills or fever(s) Eyes Eyes: Denies blurry vision or change in vision ENT ENT ED: Denies rhinorrhea or sore throat Cardiovascular Cardiovascular: Denies chest pain or palpitations Respiratory/Chest Respiratory/Chest: Denies cough or dyspnea Gastrointestinal Gastrointestinal: Denies nausea or vomiting Genitourinary Genitourinary ED: Denies dysuria or hematuria Musculoskeletal Musculoskeletal: Denies back pain or neck pain Integumentary Reports abscess and rash Neurologic Neurologic: Reports headache(s); Denies weakness Allergic/Immunologic Allergic/Immunologic ED: Denies mouth swelling or urticaria EXAM Physical Exam Const Vital Signs: 03/20/22 07:52 Temperature 96.6 F L Temperature Source Temporal Pulse Rate 86 Respiratory Rate 18 Blood Pressure 132/89 H Blood Pressure Mean 103 Pulse Ox 100 Oxygen Delivery Method Room Air Positive well nourished, well developed and obese General Appearance ED: well developed and NAD Nutritional Appearance: obese HEENT Reports moist mucous membranes Neck supple and no JVD Neuro oriented x3, CN's II-XII intact bilaterally and no sensory deficits noted Sensorium / Orientation: alert Motor Exam: strength 5/5 throughout Psych mental status grossly normal Skin Skin Narrative: There is a tender indurated abscess over the left lower chest below the left breast. There is minimal drainage. There is minimal fluctuance. There is some surrounding erythema and warmth. There is also a diffuse maculopapular rash over the abdomen, chest, and bilateral upper extremities. There are no vesicles or pustules. There are no petechia noted. There is no involvement of mucous membranes. MDM MDM MDM Narrative Medical decision making narrative: The area was cleaned with chlorhexidine prep. The area was anesthetized with 1% plain lidocaine locally. A small cruciate incision was made using an 11 blade scalpel. A large amount of purulent drainage was expressed. Loculations were broken up using curved hemostats. The wound was left open. Bacitracin dressing was applied. Patient tolerated the procedure well. Patient was instructed to use warm compresses. Patient was instructed to follow-up with her primary care physician in 5 to 7 days. Patient understood and was agreeable with the plan. All questions were answered. Since the rash could possibly be a reaction to the Keflex, we will switch the patient to clindamycin. Patient was given a prescription for this. Patient was instructed to follow-up with her primary care physician in 5 to 7 days. Patient understood and was agreeable with the plan. All questions were answered. Procedures Other Procedures Procedure(s): The area was cleaned with chlorhexidine prep. The area was anesthetized with 1% plain lidocaine locally. A small cruciate incision was made using an 11 blade scalpel. A large amount of purulent drainage was expressed. Loculations were broken up using curved hemostat. The wound was left open. Bacitracin dressing was applied. Patient tolerated the procedure well. Discharge Plan Triage Chief Complaint: Abscess ED Provider: Jonn Granados Dx/Rx/DC Orders Clinical Impression: Cutaneous abscess, Contact dermatitis Instructions: ED Abscess Incision And Drainage, ED Contact Dermatitis Prescriptions: New clindamycin HCl [Cleocin HCl] 300 mg capsule 300 mg PO Q6H Qty: 40 0RF No Action insulin lispro [Humalog U-100 Insulin] 100 UNIT/ML solution 12 - 25 unit SQ TID Protocol: 4. Sliding Scale Insulin High-Med Dosing Condition: 150-199 mg/dl = 2 units Condition: 200-259 mg/dl = 4 units Condition: 260-324 mg/dl = 6 units Condition: 325-374 mg/dl = 8 units Condition: 375-409 mg/dl = 10 units Condition: 410-449 mg/dl = 11 units Condition: Greater than 449 call physician Protocol Text: - Use for Total Daily Dose of Insulin 56-80 units - Patient who are insulin resistant or septic HIGH MEDIUM DOSING ALGORITHM empagliflozin 10 MG tablet 10 mg PO DAILY insulin degludec 100 UNIT/ML solution 65 unit SQ QHS Primary Care Provider: Fernando Jenkins Referrals: Fernando Jenkins MD [Primary Care Provider] - 5-7 Days Activity Restrictions/Additional Instructions: Stop taking the cephalexin. You were given a prescription for clindamycin. Take this instead. Disposition Disposition: Home, Self Care
[2022-03-20 09:32] VITALS: BP 132/89; PULSE 86; RESP 18; TEMP 35.9; O2SAT 100
[2022-03-20 09:36] VITALS: BP 121/84; PULSE 88; RESP 16; O2SAT 98
[2022-03-20] MEDS: Clindamycin HCl 150 MG Capsule 300 MG PO (09:37)
[2022-03-20] MEDS: Lidocaine 1% (20 ml mdv) 20 ML Vial INFILT (09:37)
== END 2022-03-20 09:45 | disposition home or self-care (01) ==
PROVIDERS: Emergency Provider Emergency Medicine; PCP Family Medicine; Visit Provider Emergency Medicine
DX: L02.213 Cutaneous abscess of chest wall (principal); E11.9 Type 2 diabetes mellitus without complications; Z79.4 Long term (current) use of insulin; L25.9 Unspecified contact dermatitis, unspecified cause; E66.9 Obesity, unspecified; Z68.34 Body mass index [BMI] 34.0-34.9, adult
CPT/HCPCS: 10060; 99283

== ENCOUNTER 2022-05-20 07:28 | Emergency (ER) | payer MEDICAID, SELFPAY ==
[2022-05-20 07:29] VITALS: BP 129/81; PULSE 93; RESP 16; TEMP 36.4; O2SAT 98; BMI 33.9
[2022-05-20 07:31] VITALS: BP 144/100; PULSE 105; RESP 18; TEMP 36.8; O2SAT 99
[2022-05-20 07:47] VITALS: BP 133/82; PULSE 99; RESP 16; TEMP 36.8; O2SAT 97
--- NOTE | 2022-05-20 07:47 | EDS_ITS ---
HPI History of Present Illness HPI Narrative: Right foot infection. History of diabetes. Chief Complaint: Wound Check Informant: patient Onset/Context/Timing Onset: Days Context: Gradual Onset Timing: Continuous Current Severity: Mild Maximum Severity: Mild Associated Symptoms Associated Symptoms: Positive for Parasthesia; Negative for Weakness or Loss of Funtion Narrative Narrative: 41-year-old insulin-dependent diabetic female with diabetic neuropathy of the feet. States about 3 weeks ago she burned her feet sitting by a heater. She developed blisters. Was seen in urgent care they thought it was infected put her on 5 days of Keflex. She has appointment to see her suede cleaner but is not for another 2 weeks approximately. She is now out of the antibiotic and the right foot is red. She denies any fever or chills. No streaks. No trauma. Prior similar symptoms: Yes Recent Illness/Hospitalization: No PFSH PFS Medical History (Updated 05/20/22 @ 07:[address] Jacoby Bright MD) Diabetes Home Medications insulin lispro 100 unit/mL subcutaneous solution (Humalog U-100 Insulin) 12 - 25 unit SQ TID 08/26/18 [History Last Taken 08/26/18 18 UNIT] insulin degludec 100 unit/mL subcutaneous solution 65 unit SQ QHS 08/17/20 [History Last Taken Unknown] cephalexin 500 mg capsule 500 mg PO Q6 #40 caps 05/20/22 [Rx Last Taken Unknown] empagliflozin 25 mg tablet (Jardiance) 25 mg PO DAILY 05/20/22 [History Last Taken Unknown] Allergy/AdvReac Type Severity Reaction Status Date / Time Sulfa (Sulfonamide Allergy Hives Verified 05/20/22 07:31 Antibiotics) doxycycline AdvReac Rash Verified 05/20/22 07:31 Family History Father Diabetes Surgical History delivery delivered History of cholecystectomy Tubal ligation status Social History Smoking Status: Never smoker alcohol intake: never substance use type: does not use caffeine: Yes frequency: 3-4 times per week seatbelt use: always do you feel safe at home: Yes additional social history: - Unemployed ROS ROS ED ROS Narrative Denies fever or chills. Review of Systems ROS Unobtainable: Denies due to encephalopathy Constitutional Constitutional ED: Denies chills or fever(s) Eyes Eyes: Denies blurry vision ENT ENT ED: Denies ear pain Cardiovascular Cardiovascular: Denies chest pain Respiratory/Chest Respiratory/Chest: Denies cough or dyspnea Gastrointestinal Gastrointestinal: Denies abdominal pain Genitourinary Genitourinary ED: Denies dysuria or hematuria Musculoskeletal Musculoskeletal: Denies arthralgias Integumentary Denies abscess Neurologic Neurologic: Denies headache(s) Psychiatric Psychiatric: Denies anxiety or depression Endocrine Endocrinology: Denies polydipsia Hematologic/Lymphatic Hematologic/Lymphatic: Denies easy bleeding or easy bruising Allergic/Immunologic Allergic/Immunologic ED: Denies mouth swelling or tongue swelling EXAM Physical Exam Narrative Exam Narrative: Middle-aged female no acute distress. Vital signs stable afebrile. H EENT exam unremarkable. Moist Riis members. Neck nontender no lymphadenopathy. Lungs clear to auscultation bilaterally. Heart regular rhythm no murmur rate about 90. Abdomen soft nontender. Moving all 4 extremities. She has diabetic neuropathies both feet. The right foot great toe has a blister that ruptured. There is scarring to the top of the toe. She has tinea of the great nail. She also has burn blisters on several other toes. Tenderness. Redness and swelling primarily on the sole of her foot. Along the toes and distal foot. The top of the foot is unremarkable other than the toes. She has a palpable DP pulse. The lower leg is nontender without redness or streaks. This appears to be an obvious burn or foot which has become infected plus she has chronic tinea. No abscess at this time or pus. Const Vital Signs: 05/20/22 07:29 Temperature 97.5 F L Temperature Source Temporal Pulse Rate 93 Respiratory Rate 16 Blood Pressure 129/81 H Blood Pressure Mean 97 Pulse Ox 98 Oxygen Delivery Method Room Air Positive well nourished and well developed; Negative for obese, cachectic, contractures or unkempt General Appearance ED: well developed and NAD; Negative for unkempt, cachectic or contractures Nutritional Appearance: Negative for cachectic or obese HEENT Reports moist mucous membranes; Denies other normocephalic and atraumatic; Negative for trauma, tenderness or other Eyes PERRL General Eye ED: Negative for other Neck full ROM and supple Thyroid: Negative for tender Lymph Lymphatic: Negative for other Chest Wall inspection of chest normal and palpation of chest normal Resp normal respiratory effort, no retractions and clear to auscultation bilaterally Effort and Inspection: Negative for pain with movement Auscultation: Negative for rales, rhonchi or wheezes Cardio regular rate, regular rhythm, S1 normal heart sound, S2 normal heart sound and no murmurs Rate: Negative for bradycardia Rhythm: Negative for abnormal rhythm Bruits: Negative for other GI non-tender, non-distended and no masses Auscultation: normoactive bowel sounds Palpation: soft; Negative for tender, guarding or rebound tenderness present Back/Spine no CVA tenderness General Back: Negative for CVA tenderness Cervical Spine: Negative for cervical spine tenderness Thoracic Spine / Upper Back: Negative for thoracic spinal tenderness Lumbar Spine / Lower Back: Negative for lumbar spinal tenderness Extremity full ROM; Negative for normal to inspection Extremity Narrative: Redness of the bottom of her right foot primarily along the toes. Mild swelling and tenderness. Burn blisters. Early cellulitis. Diabetic neuropathy with greatly decreased sensation. Normal range of motion. No lymphangitic streaking. Top of the foot there is no significant pain, redness or swelling. Palpable DP pulse. General Extremety ED: Yes edema General Extremity: edema Neuro oriented x3, moves all extremities and No no sensory deficits noted Sensorium / Orientation: alert, oriented to person, oriented to place and oriented to time; Negative for orientation impaired, confused, lethargic or stuporous Motor Exam: strength 5/5 throughout Psych mental status grossly normal Appearance: Negative for unkempt Speech: No other Mood & Affect: Negative for anxious Skin no wounds Lesions: no lesions Rashes: no rashes Trauma: Negative for abrasion or laceration MDM MDM MDM Narrative Medical decision making narrative: 41-year-old with diabetes and diabetic neuropathy. Vernor foot several weeks ago has developed cellulitis and blisters. She will be started on Keflex 500 4 times daily for 10 days. See if she can move up her appointment with her suede cleaner which is in about 12 days. Watch her blood sugars closely which have been running between 2 and 300. Return if worse. Discharge Plan Triage Chief Complaint: Wound Check ED Provider: Jacoby Bright Dx/Rx/DC Orders Clinical Impression: Diabetic foot infection, DM2 (diabetes mellitus, type 2), Second degree burn Instructions: Cellulitis Prescriptions: New cephalexin 500 mg capsule 500 mg PO Q6 Qty: 40 0RF No Action insulin lispro [Humalog U-100 Insulin] 100 UNIT/ML solution 12 - 25 unit SQ TID Protocol: 4. Sliding Scale Insulin High-Med Dosing Condition: 150-199 mg/dl = 2 units Condition: 200-259 mg/dl = 4 units Condition: 260-324 mg/dl = 6 units Condition: 325-374 mg/dl = 8 units Condition: 375-409 mg/dl = 10 units Condition: 410-449 mg/dl = 11 units Condition: Greater than 449 call physician Protocol Text: - Use for Total Daily Dose of Insulin 56-80 units - Patient who are insulin resistant or septic HIGH MEDIUM DOSING ALGORITHM insulin degludec 100 UNIT/ML solution 65 unit SQ QHS Jardiance 25 mg tablet 25 mg PO DAILY Label Comments: TAKE 1 TABLET BY MOUTH EVERY DAY WITH BREAKFAST Primary Care Provider: Fernando Jenkins Referrals: Fernando Jenkins MD [Primary Care Provider] - As soon as possible Activity Restrictions/Additional Instructions: Keflex 1 pill 4 times a day for the next 10 days. Clean your feet daily with just soap and water and dry thoroughly. Call and follow-up with your suede cleaner as soon as possible. See if they can move your appointment up. Watch her blood sugars closely. Disposition Disposition: Home, Self Care
[2022-05-20] MEDS: Cephalexin 250 MG Capsule 500 MG PO (08:02)
== END 2022-05-20 08:14 | disposition home or self-care (01) ==
LOC: ED 07:58
PROVIDERS: Emergency Provider Emergency Medicine; PCP Family Medicine; Visit Provider Emergency Medicine
DX: E11.628 Type 2 diabetes mellitus with other skin complications (principal); E11.40 Type 2 diabetes mellitus with diabetic neuropathy, unspecified; Z79.4 Long term (current) use of insulin; L03.119 Cellulitis of unspecified part of limb; T25.221D Burn of second degree of right foot, subsequent encounter
CPT/HCPCS: 99283

== ENCOUNTER 2022-05-21 15:37 | Inpatient (IN) | payer MEDICAID, SELFPAY ==
[2022-05-21 15:45] VITALS: BMI 33.9
[2022-05-21 16:03] VITALS: BP 118/76; PULSE 100; RESP 16; TEMP 37; O2SAT 98
[2022-05-21 16:21] VITALS: BP 118/76; PULSE 100; RESP 16; TEMP 37; O2SAT 98
--- NOTE | 2022-05-21 17:06 | ART_ITS ---
Reason For Study: RLE Ulcer Procedure A bilateral lower extremity continuous wave Doppler with analog waveform analysis and ankle brachial indexes. Left Segmental Pressures Left posterior tibial artery = 170mmHg. Left dorsalis pedis artery = 161mmHg. Left digit = 134 mmHg. The left posterior tibial artery waveforms are triphasic. The left dorsalis pedis waveforms are triphasic. Right Segmental Pressures Right brachial= 129mmHg. Right posterior tibial artery = 183mmHg. Right dorsalis pedis artery = 154mmHg. Right digit = 161 mmHg. The right posterior tibial artery waveforms are triphasic. The right dorsalis pedis waveforms are triphasic. Indices The right ankle brachial index by the posterior tibial artery is 1.42. The right ankle brachial index by the dorsalis pedis is 1.19. The right digital-brachial index is 1.25. The left ankle brachial index by the posterior tibial artery is 1.32. The left ankle brachial index by the dorsalis pedis is 1.25. The left digital-brachial index is 1.04. VL/Ankle Brachial Index Interpretation Summary Normal right lower extremity posterior tibialis and dorsalis pedis ankle-brachi al indices of 1.42 and 1.19 respectively with normal triphasic Doppler waveforms. Normal right digital brachial index of 1.25 Normal left lower extremity posterior tibialis and dorsalis pedis ankle-brachia l indices of 1.32 and 1.25 respectively with normal triphasic Doppler waveforms Normal left digital brachial index of 1.04 Ordering Physician: Nathen Sousa Referring Physician: MD Alice Fernando Performed By: [place] RVT
--- NOTE | 2022-05-21 17:50 | NURSING ---
Pt. Checked Blood glucose level on phone via [employer]- 305mg/dl.
[2022-05-21] MEDS: 0.9% Saline Lock 10 ML Syringe IV ×3 (17:59→23:34)
[2022-05-21 18:53] LABS: Absolute Lymphocyte Count 1.89 X10^3/uL (0.83-4.51); Absolute Neutrophil Count 6.6 X10^3/uL (2.0-7.7); Basophil# 0.05 X10^3/uL; Basophil% 0.5 % (0-1); Eosinophil# 0.16 X10^3/uL; Eosinophils% 1.7 % (0-5); Hematocrit 40.7 % (37-47); Hemoglobin 13.4 g/dL (12.0-15.0); Lymphocyte # 1.89 X10^3/ul (0.83-4.51); Lymphocyte % 20.1 % (19-41); Mean Corp Hgb Conc 32.9 g/dL (32-36); Mean Corpuscular Hgb 30.1 pg (27.0-32.0); Mean Corpuscular Volume 91.5 fL (81-99); Mean Platelet Vol. 11.3 fl (6.2-12.0); Monocyte# 0.72 X10^3/uL; Monocyte% 7.6 % (0-10); NRBC Flagged by Analyzer 0 % (0-5); Neutrophil # 6.56 X10^3/uL (2.7-7.7); Neutrophil % 69.7 % (47-70); Platelet Count 321 K/mm3 (150-450); RBC Distribution Width CV 13.3 % (11.6-14.6); RBC Distribution Width SD 44.9 fl (35.1-43.9); Red Blood Count 4.45 M/mm3 (4.2-5.4); White Blood Count 9.4 K/mm3 (4.4-11.0)
[2022-05-21 19:02] LABS: Erythrocyte Sedimentation Rate 38 mm/hr (0-30)
--- NOTE | 2022-05-21 19:05 | PCM.PN.HOSP ---
Subjective Subjective This is a 41-year-old white female who was admitted by podiatry secondary to a diabetic foot wound. She evidently about 3 weeks ago had burned her foot by sitting by heater and developed blisters at that time. She was seen by urgent care and they thought it was infected and place her on Keflex for 5 days. She completed the antibiotics but is having worsening redness and swelling. She evidently was seen in the emergency department on the at which time she was given Keflex again and encouraged to follow-up with podiatry sooner than her appointment that was 12 days away. She followed up with podiatry today in their office and they recommended admission for further care including debridement and IV antibiotics. We have been consulted for medical management. At the time of my evaluation the patient was complaining of some right foot pain but otherwise stated that she was feeling well and had no issues or symptoms of concern. Objective Data Objective Data Vital Signs: Vital Signs Temp Pulse Resp BP Pulse Ox O2 Del Method 98.6 F 100 16 118/76 98 Room Air 05/21/22 16:21 05/21/22 16:21 05/21/22 16:21 05/21/22 16:21 05/21/22 16:21 05/21/22 16:21 Oxygen Delivery Method Room Air Weight: 95.254 kg Body Mass Index (BMI) 33.9 Intake & Output: Intake and Output for Last 24 Hours 05/19/22 05/20/22 05/21/22 23:59 23:59 23:59 Intake Total 50.75 / 50.75 Balance 50.75 / 50.75 Lab / Micro Data Result Diagrams: 05/21/22 18:42 05/21/22 18:42 Labs: Laboratory Results - last 24 hr 05/21/22 18:42: WBC 9.4, RBC 4.45, Hgb 13.4, Hct 40.7, MCV 91.5, MCH 30.1, MCHC 32.9, RDW Std Deviation 44.9 H, RDW Coeff of Pricila 13.3, Plt Count 321, MPV 11.3, Immature Gran % (Auto) 0.400, Neut % (Auto) 69.7, Lymph % (Auto) 20.1, [place] % (Auto) 7.6, Eos % (Auto) 1.7, Baso % (Auto) 0.5, Absolute Neuts (auto) 6.6, Absolute Lymphs (auto) 1.89, Nucleated RBC % 0, ESR 38 H Physical Exam Const alert, oriented x3, no apparent distress and well nourished Constitutional Narrative: Obese, middle-aged white female sitting up in bed eating dinner and watching TV, nursing at bedside, patient appears comfortable and nontoxic HEENT head/scalp atraumatic, moist oral mucous membranes and oropharynx normal HEENT Narrative: Dentition is good, Mallampati is 2-3, no thrush Head and Scalp: normocephalic Resp normal respiratory effort, no retractions, no use of accessory muscles and clear to auscultation bilaterally Auscultation: Negative for crackles, rhonchi or wheezes Cardio regular rate, regular rhythm, S1 normal heart sound, S2 normal heart sound, no murmurs, no rub, no gallops and no clicks GI normal to inspection, nondistended, normoactive bowel sounds, soft to palpation and non-tender Extremity no clubbing, cyanosis or edema Extremity Narrative: Right lower extremity has dressing in place with Kurt bandage covering, good cap refill distally, tender at the site of debridement Neuro oriented x3, CN's II-XII intact bilaterally and no focal motor deficits Neuro Narrative: Decreased sensation peripherally at bilateral lower extremities Speech: speech normal Psych affect normal Psych Narrative: Very pleasant and appropriately interactive Assessment & Plan Assessment/Plan (1) Diabetic foot infection: PLAN: Plan Diabetic foot infection -Primary management per podiatry -Debridement done earlier today -Cultures pending -Continue vancomycin and Zosyn -ESR and CRP are elevated -Await podiatry input to see if further imaging needs to be performed -Weightbearing status per podiatry -PT consult for gait training DM-2 -Continue home insulin -Hold home Jardiance -Okay to use home long meter with Accu-Cheks before meals and at bedtime -Add sliding scale -Check hemoglobin A1c as blood sugars are quite elevated and adjustments in home insulin regimen may need to be made -Would recommend outpatient follow-up with endocrinology at discharge Diabetic neuropathy -Continue home gabapentin DVT prophylaxis -We will utilize enoxaparin while patient is hospitalized as I do anticipate decreased mobility CODE STATUS -Full code Charges/Coding Visit Charges OBSV E&M: 93216 Initial observation care L2
[2022-05-21 19:08] LABS: ALB/GLOB Ratio 0.7 RATIO (0.9-2.4); AST(SGOT) 18 U/L (15-37); Alanine Aminotransfer ALT/SGPT 27 U/L (13-56); Albumin, Serum 2.8 g/dL (3.2-5.0); Alkaline Phosphatase 87 U/L (45-117); Anion Gap 4 (5-15); BUN 10 mg/dL (7-18); BUN/Creat Ratio 11.9 RATIO (10-20); Calcium,Total 8.8 mg/dL (8.5-10.1); Chloride 101 mmol/L (98-107); Creatinine, Serum 0.84 mg/dL (0.55-1.02); EST Glomerular Filtration Rate 79 mL/min (>60); Est Glom Filt Rate - Afr Amer 95 mL/min (>60); Estimated Creatinine Clearance 80.84 ml/min; Globulin 4.1 g/dL (2.2-4.2); Glucose 350 mg/dL (74-106); Potassium 3.9 mmol/L (3.5-5.1); Protein, Total 6.9 g/dL (6.4-8.2); Sodium Level 136 mmol/L (136-145)
--- NOTE | 2022-05-21 20:30 | PCM.RX.CS ---
Consult Pharmacy has been consulted to manage selected antiobiotic: Vancomycin Type of Consult: New start Suspected Infection: Skin/Soft tissue Prior Doses of Antibiotics Received/Current Regimen: Received loading dose of 1500mg iv x 1 on 05.21.22. Labs: Sodium 136 mmol/L (136-145) 05/21/22 18:42 Potassium 3.9 mmol/L (3.5-5.1) 05/21/22 18:42 Chloride 101 mmol/L (98-107) 05/21/22 18:42 Carbon Dioxide 31.0 mmol/L (21.0-32.0) 05/21/22 18:42 Anion Gap 4 (5-15) L 05/21/22 18:42 BUN 10 mg/dL (7-18) 05/21/22 18:42 Creatinine 0.84 mg/dL (0.55-1.02) 05/21/22 18:42 Est GFR (MDRD) Af Amer 95 mL/min (>60) 05/21/22 18:42 Est GFR (MDRD) Non-Af 79 mL/min (>60) 05/21/22 18:42 BUN/Creatinine Ratio 11.9 RATIO (10-20) 05/21/22 18:42 Glucose 350 mg/dL (74-106) H 05/21/22 18:42 Weight used for dosin kg Estimated Creatinine Clearance: 100ml/min Goal Trough: 10-15 mcg/mL Pharmacy Plan for Drug Dosing: Will start 1500mg iv q12h per protocol based on adjusted body weight of 73.6kg and SCrCl calculation of 100ml/min. Trough level ordered for before 4th dose on 05.23.22 @0530. Pharmacy Service will continue to monitor and adjust dosing as required. Follow-Up Labs: Trough Vancomycin - 05.23.22 @0530 before 0600 dose
[2022-05-21] MEDS: Insulin Glargine-YFGN 100 UNIT/ML Pen 65 UNIT SC (21:21)
[2022-05-21] MEDS: Gabapentin 300 MG Capsule 600 MG PO (21:29)
[2022-05-21 22:04] VITALS: BP 128/72; PULSE 95; RESP 16; TEMP 37.1; O2SAT 97
[2022-05-21 22:21] VITALS: BP 128/72; PULSE 95; RESP 16; TEMP 37.1; O2SAT 97
[2022-05-21] MEDS: Acetaminophen 500 MG Tablet PO (23:27)
[2022-05-22 04:00] VITALS: BP 117/67; PULSE 79; RESP 18; TEMP 36.8; O2SAT 96
[2022-05-22 06:08] LABS: Absolute Lymphocyte Count 2.05 X10^3/uL (0.83-4.51); Absolute Neutrophil Count 4.3 X10^3/uL (2.0-7.7); Basophil# 0.05 X10^3/uL; Basophil% 0.7 % (0-1); Eosinophil# 0.29 X10^3/uL; Eosinophils% 3.8 % (0-5); Hematocrit 37.1 % (37-47); Hemoglobin 12.6 g/dL (12.0-15.0); Lymphocyte # 2.05 X10^3/ul (0.83-4.51); Lymphocyte % 27.1 % (19-41); Mean Corpuscular Volume 91.2 fL (81-99); Monocyte# 0.88 X10^3/uL; Monocyte% 11.6 % (0-10); NRBC Flagged by Analyzer 0 % (0-5); Neutrophil # 4.26 X10^3/uL (2.7-7.7); Neutrophil % 56.4 % (47-70); Platelet Count 300 K/mm3 (150-450); RBC Distribution Width CV 13.4 % (11.6-14.6); RBC Distribution Width SD 45.3 fl (35.1-43.9); Red Blood Count 4.07 M/mm3 (4.2-5.4); White Blood Count 7.6 K/mm3 (4.4-11.0)
[2022-05-22 06:39] LABS: ALB/GLOB Ratio 0.7 RATIO (0.9-2.4); AST(SGOT) 14 U/L (15-37); Alanine Aminotransfer ALT/SGPT 21 U/L (13-56); Albumin, Serum 2.5 g/dL (3.2-5.0); Alkaline Phosphatase 73 U/L (45-117); Anion Gap 3 (5-15); BUN 11 mg/dL (7-18); BUN/Creat Ratio 15.7 RATIO (10-20); Calcium,Total 8.1 mg/dL (8.5-10.1); Chloride 104 mmol/L (98-107); EST Glomerular Filtration Rate 97 mL/min (>60); Est Glom Filt Rate - Afr Amer 117 mL/min (>60); Estimated Creatinine Clearance 97.01 ml/min; Globulin 3.8 g/dL (2.2-4.2); Glucose 188 mg/dL (74-106); Potassium 3.5 mmol/L (3.5-5.1); Protein, Total 6.3 g/dL (6.4-8.2); Sodium Level 138 mmol/L (136-145)
--- NOTE | 2022-05-22 06:54 | HP.PCM_ITS ---
HPI - General General Date of Admission: 05/21/22 Chief Complaint: b/l foot wounds HPI Narrative ERICH GUEVARA, is a 41 F who presents for direct admission for cellulitis of right foot. patent reports sustaining colon to both feet R>L as a result of keeping her feet close to the heater . She developed blisters to the right great toe, right 2nd, right 3rd toe and right 4th toe on May 12. She presented to [facility] urgent care on May 12 and was prescribed keflex and instructed to applybacitracin to the toes. She states she took the keflex x 5 days and started using bacitracin but she felt the bacitracin made the toes red and made the blisters worse. She presented to [facility] on May 20 and was ordered keflex and instructed to present to podiatry. I saw tihs pateint yesterday, debrided her wounds, removed her right gret toenail and I suggested admission to the hopsital for IV antibiotics . She is seen today at bedside. Reports mild pain but controlled with tylenol. She denies n/v/f/c. She is tolerating antibiotics nicely. [facility] Medical History (Updated 05/20/22 @ 07:[address] Jacoby Bright MD) Diabetes Home Medications insulin lispro 100 unit/mL subcutaneous solution (Humalog U-100 Insulin) 12 - 25 unit SQ TID 08/26/18 [History Last Taken 05/20/22] insulin degludec 100 unit/mL subcutaneous solution 65 unit SQ QHS 08/17/20 [History Last Taken 05/20/22] cephalexin 500 mg capsule 500 mg PO Q6 #40 caps 05/20/22 [Rx Last Taken 05/21/22] empagliflozin 25 mg tablet (Jardiance) 25 mg PO DAILY 05/20/22 [History Last Taken 05/21/22] flash glucose scanning reader (FreeStyle Mague 2 [place]) 05/21/22 [History Last Taken Unknown] gabapentin 300 mg capsule 600 mg PO QHS 05/21/22 [History Last Taken 05/20/22] Allergy/AdvReac Type Severity Reaction Status Date / Time Sulfa (Sulfonamide Allergy Hives Verified 05/20/22 07:31 Antibiotics) doxycycline AdvReac Rash Verified 05/20/22 07:31 Family History Father Diabetes Surgical History delivery delivered History of cholecystectomy Tubal ligation status Social History Smoking Status: Never smoker alcohol intake: never substance use type: does not use caffeine: Yes frequency: 3-4 times per week seatbelt use: always do you feel safe at home: Yes additional social history: - Unemployed Vital Signs Vital Signs Vital Signs: 05/21/22 16:03 05/21/22 16:21 05/21/22 22:04 Temperature 98.6 F 98.6 F 98.8 F Temperature Source Oral Oral Oral Pulse Rate 100 100 95 Respiratory Rate 16 16 16 Respiratory Effort Respiratory Depth Respiratory Pattern Blood Pressure 118/76 118/76 128/72 H Blood Pressure Mean 90 90 90 Blood Pressure Source Monitor Monitor Blood Pressure Position Sitting Semi-Fowlers Blood Pressure Location Left Arm Right Arm Pulse Ox 98 98 97 Oxygen Delivery Method Room Air Room Air Room Air 05/21/22 22:21 05/21/22 22:00 05/22/22 04:00 Temperature 98.8 F 98.2 F Temperature Source Oral Oral Pulse Rate 95 79 Respiratory Rate 16 18 Respiratory Effort Normal Non-Labored Respiratory Depth Normal Respiratory Pattern Normal Blood Pressure 128/72 H 117/67 Blood Pressure Mean 90 83 Blood Pressure Source Monitor Blood Pressure Position Semi-Fowlers Blood Pressure Location Right Arm Pulse Ox 97 96 Oxygen Delivery Method Room Air Room Air Room Air 05/22/22 04:00 Temperature 98.2 F Temperature Source Oral Pulse Rate 79 Respiratory Rate 18 Respiratory Effort Respiratory Depth Respiratory Pattern Blood Pressure 117/67 Blood Pressure Mean 83 Blood Pressure Source Blood Pressure Position Blood Pressure Location Pulse Ox 96 Oxygen Delivery Method Room Air Weight Weight: 95.254 kg Body Mass Index (BMI) 33.9 Physical Exam Narrative vascular: DP and PT pulses faintly palpable to b/l feet. CFT is less than five seconds. Skin temperature is warm to warm. The redness of right great toe is decreasing Neuro: protective senstion is absent to b/l feet. Derm: Ulceration #1 Location: Right dorsal hallux Measurement: 3 cm x 2 cm Base: fibrotic/granular No exposed tendon, capsule or bone. No drainage. Mild maceration. Ulceration #2 Location: Right Distal Hallux Measurement: 2.5 cm x 0.05 cm Base: dry No exposed tendon, capsule or bone. No drainage. Ulceration #3 Location: right 3rd toe Measurement: 1.5 cm x 1.5 cm Base: granular No exposed tendon, capsule or bone. No drainage right hallux nail bed appears granular, mild maceration . no drainage Ulceration #4 Left medial arch Measurement: 1 cm x 3 cm Base: granular No exposed tendon, capsule or bone. no drainage. Ulceration #5 Location: Left great toe Measurement: 0.5 cm x 0.5 cm base: Dry Const General Appearance: cooperative and comfortable Orientation / Consciousness: awake, oriented to person, oriented to place and oriented to time Results Lab / Micro Data Result Diagrams: 05/22/22 05:45 05/22/22 05:45 Labs: Laboratory Results - last 24 hr 05/21/22 18:42: WBC 9.4, RBC 4.45, Hgb 13.4, Hct 40.7, MCV 91.5, MCH 30.1, MCHC 32.9, RDW Std Deviation 44.9 H, RDW Coeff of Pricila 13.3, Plt Count 321, MPV 11.3, Immature Gran % (Auto) 0.400, Neut % (Auto) 69.7, Lymph % (Auto) 20.1, [place] % (Auto) 7.6, Eos % (Auto) 1.7, Baso % (Auto) 0.5, Absolute Neuts (auto) 6.6, Absolute Lymphs (auto) 1.89, Nucleated RBC % 0, ESR 38 H 05/21/22 18:42: Sodium 136, Potassium 3.9, Chloride 101, Carbon Dioxide 31.0, Anion Gap 4 L, BUN 10, Creatinine 0.84, Estim Creat Clear Calc 80.84, Est GFR (MDRD) Af Amer 95, Est GFR (MDRD) Non-Af 79, BUN/Creatinine Ratio 11.9, Glucose 350 H, Calcium 8.8, Total Bilirubin 0.50, AST 18, ALT 27, Alkaline Phosphatase 87, C-React Prot Ext Range 19.20 H, Total Protein 6.9, Albumin 2.8 L, Globulin 4.1, Albumin/Globulin Ratio 0.7 L 05/22/22 05:45: WBC 7.6, RBC 4.07 L, Hgb 12.6, Hct 37.1, MCV 91.2, MCH 31.0, MCHC 34.0, RDW Std Deviation 45.3 H, RDW Coeff of Pricila 13.4, Plt Count 300, MPV 11.0, Immature Gran % (Auto) 0.400, Neut % (Auto) 56.4, Lymph % (Auto) 27.1, [place] % (Auto) 11.6 H, Eos % (Auto) 3.8, Baso % (Auto) 0.7, Absolute Neuts (auto) 4.3, Absolute Lymphs (auto) 2.05, Nucleated RBC % 0 05/22/22 05:45: Sodium 138, Potassium 3.5, Chloride 104, Carbon Dioxide 31.0, Anion Gap 3 L, BUN 11, Creatinine 0.70, Estim Creat Clear Calc 97.01, Est GFR (MDRD) Af Amer 117, Est GFR (MDRD) Non-Af 97, BUN/Creatinine Ratio 15.7, Glucose 188 H, Calcium 8.1 L, Total Bilirubin 0.80, AST 14 L, ALT 21, Alkaline Phosphatase 73, Total Protein 6.3 L, Albumin 2.5 L, Globulin 3.8, Albumin/Globulin Ratio 0.7 L Micro: wound culture from [facility] 05/21/22: gram positive cocci. Rare gram negatitve bacilli Assessment & Plan Assessment/Plan (1) Diabetic foot infection: PLAN: Patient was seen today with Huyen Rivas. Pictures are submitted in chart . Redness of right foot does appear to be improving. WBC normal. ESR slightly elevated at 38 Wound culture from [facility] 05/21/22 shows gram positive cocci, gram negative bacilli. Continue with vancomycin and zosyn. once cultures confirmed, may be able to transition back to oral medication and discuss discharge (2) Second degree burn: PLAN: Wounds were examined today. The right great toe, right 2nd and 3rd toe does appear modertely macerated. I irrigted all wounds to right foot today at bedside. Due to the maceration, I am going to treat today with betadine and adaptic to help dry the wounds. Could consider santyl vs aquacel pending appearance of wound bed in future dressing change . Patient informed that wound care is an evolving process and changes are made depending on the appearance of the wound. I also informed patient that it is very important to keep sugars controlled otherwise, she is at risk of slow healing. (3) Diabetes mellitus with neuropathy: PLAN: stable. continue wit neurontin at bedtime. can take tylenol during the day for pain. (4) Ulcer of right foot with fat layer exposed: PLAN: as above. i did attemp debridement today of right hallux with 15 blade. there is small amount of eschar dorsally but this was very adherenent. may consider santyl once the toe is dry. for now, continue with betadine. (5) Ulcer of left foot with fat layer exposed: PLAN: left foot wounds appear stable. neosporin and dressin gapplied. PLAN: Plan as above. patient permitted to ambulate with surgical shoe b/l.
[2022-05-22] MEDS: Acetaminophen 500 MG Tablet PO ×3 (06:59→21:14)
[2022-05-22] MEDS: Neomycin/Bacitracin/Polymyxin Ointment 1 APPLIC TOPICAL (07:01)
--- NOTE | 2022-05-22 07:24 | WOUNDNOTE ---
wound photo: right foot
--- NOTE | 2022-05-22 07:24 | WOUNDNOTE ---
wound photo: right foot
--- NOTE | 2022-05-22 07:25 | WOUNDNOTE ---
wound photo: left great toe
--- NOTE | 2022-05-22 07:26 | WOUNDNOTE ---
wound photo: left medial foot
[2022-05-22 07:45] LABS: Bedside Glucose 316 mg/dL (74-106)
[2022-05-22 07:45] LABS: Bedside Glucose 312 mg/dL (74-106)
[2022-05-22 07:45] LABS: Bedside Glucose 327 mg/dL (74-106)
[2022-05-22 08:15] LABS: Hemoglobin A1c 10.8 % (3.8-5.6)
[2022-05-22] MEDS: Insulin Lispro 100 UNIT/ML INSULN.PEN SC ×3 (08:29→18:17)
[2022-05-22] MEDS: Insulin Lispro 100 UNIT/ML INSULN.PEN 20 UNIT SC ×3 (08:30→18:17)
[2022-05-22] MEDS: Enoxaparin 40 MG/0.4 ML Syringe SC (08:32)
[2022-05-22 11:00] VITALS: BP 144/91; PULSE 79; RESP 18; TEMP 36.6; O2SAT 97
--- NOTE | 2022-05-22 11:08 | CASEMGMT ---
WERO SCHWARTZ Assessment: Face to Face with pt for initial transition planning/care coordination assessment. RN EFREN introduced self and role at [facility], pt voices understanding and consents to assessment. Pt is A/O x4 and answers all questions appropriately at this time. Pt lying in bed in no distress. Care providers, pharmacy, and demographics verified/updated. Admitting Dx: cellulitis of right foot/neuropathic ulcer/burn PCP:Alice Specialists:sherine Sousa Preferred Pharmacy: [facility] Insurance: [facility] Prescription Benefit: yes LNOK: Charles Gonzaleztie, sig other Living Arrangements: Pt lives sig other in a single story house with no steps to enter. Pt reports she is I in ADL's and denies concerns at home. Transportation: Pt drives self and denies concerns with transportation. DME/HHC/SNF: Pt has a rollator that she does not use. She also has [facility] [employer] that she uses and reports she has supplies for. Pt denies hx of HHC or SNF stays. Pt states no concerns with going home at time of dc. She states that she was performing dressing changes on her feet prior to this hospitalization and she can do after. Pt denies need for any assistance with this. She states she has had foot ulcers and been to the [facility] in the past. Pt states no further concerns/needs. CM to follow. Advised pt to ask CM if any further question/concerns/needs arise, voices understanding. Pt Goal: Home Plan: Home
--- NOTE | 2022-05-22 11:21 | NURSING ---
pt having testing in room
--- NOTE | 2022-05-22 13:52 | PN.HOSP_ITS ---
Subjective Subjective Patient seen and examined. She complained of some pain in her lower extremities. She had debridement done by podiatry today. She has remained hemodynamically stable. Review of systems is otherwise negative. Objective Data Objective Data Vital Signs: Vital Signs Temp Pulse Resp BP Pulse Ox O2 Del Method 97.8 F 79 18 144/91 H 97 Room Air 05/22/22 11:00 05/22/22 11:00 05/22/22 11:00 05/22/22 11:00 05/22/22 11:00 05/22/22 11:00 Oxygen Delivery Method Room Air Weight: 209 lb 15.986 oz Body Mass Index (BMI) 33.9 Intake & Output: Intake and Output for Last 24 Hours 05/20/22 05/21/22 05/22/22 23:59 23:59 23:59 Intake Total 580.75 / 580.75 1553.25 / 1553.25 Balance 580.75 / 580.75 1553.25 / 1553.25 Lab / Micro Data Result Diagrams: 05/22/22 05:45 05/22/22 05:45 Labs: Laboratory Results - last 24 hr 05/21/22 18:36: POC Glucose 327 H 05/21/22 18:37: POC Glucose 312 H 05/21/22 18:38: POC Glucose 316 H 05/21/22 18:42: WBC 9.4, RBC 4.45, Hgb 13.4, Hct 40.7, MCV 91.5, MCH 30.1, MCHC 32.9, RDW Std Deviation 44.9 H, RDW Coeff of Pricila 13.3, Plt Count 321, MPV 11.3, Immature Gran % (Auto) 0.400, Neut % (Auto) 69.7, Lymph % (Auto) 20.1, [place] % (Auto) 7.6, Eos % (Auto) 1.7, Baso % (Auto) 0.5, Absolute Neuts (auto) 6.6, Absolute Lymphs (auto) 1.89, Nucleated RBC % 0, ESR 38 H 05/21/22 18:42: Sodium 136, Potassium 3.9, Chloride 101, Carbon Dioxide 31.0, Anion Gap 4 L, BUN 10, Creatinine 0.84, Estim Creat Clear Calc 80.84, Est GFR (MDRD) Af Amer 95, Est GFR (MDRD) Non-Af 79, BUN/Creatinine Ratio 11.9, Glucose 350 H, Calcium 8.8, Total Bilirubin 0.50, AST 18, ALT 27, Alkaline Phosphatase 87, C-React Prot Ext Range 19.20 H, Total Protein 6.9, Albumin 2.8 L, Globulin 4.1, Albumin/Globulin Ratio 0.7 L 05/22/22 05:45: WBC 7.6, RBC 4.07 L, Hgb 12.6, Hct 37.1, MCV 91.2, MCH 31.0, MCHC 34.0, RDW Std Deviation 45.3 H, RDW Coeff of Pricila 13.4, Plt Count 300, MPV 11.0, Immature Gran % (Auto) 0.400, Neut % (Auto) 56.4, Lymph % (Auto) 27.1, [place] % (Auto) 11.6 H, Eos % (Auto) 3.8, Baso % (Auto) 0.7, Absolute Neuts (auto) 4.3, Absolute Lymphs (auto) 2.05, Nucleated RBC % 0 05/22/22 05:45: Sodium 138, Potassium 3.5, Chloride 104, Carbon Dioxide 31.0, Anion Gap 3 L, BUN 11, Creatinine 0.70, Estim Creat Clear Calc 97.01, Est GFR (MDRD) Af Amer 117, Est GFR (MDRD) Non-Af 97, BUN/Creatinine Ratio 15.7, Glucose 188 H, Calcium 8.1 L, Total Bilirubin 0.80, AST 14 L, ALT 21, Alkaline Phosphatase 73, Total Protein 6.3 L, Albumin 2.5 L, Globulin 3.8, Albumin/Globulin Ratio 0.7 L 05/22/22 05:45: Hemoglobin A1c 10.8 H Radiography Diagnostic Testing: Radiology Impression Ankle Brachial Index 05/21/22 17:06 Interpretation Summary Normal right lower extremity posterior tibialis and dorsalis pedis ankle- brachial indices of 1.42 and 1.19 respectively with normal triphasic Doppler waveforms. Normal right digital brachial index of 1.25 Normal left lower extremity posterior tibialis and dorsalis pedis ankle-brachial indices of 1.32 and 1.25 respectively with normal triphasic Doppler waveforms Normal left digital brachial index of 1.04 Ordering Physician: Nathen Sousa Referring Physician: MD Alice Fernando Performed By: [place], RVT Physical Exam Const alert, oriented x3 and no apparent distress HEENT head/scalp atraumatic, moist oral mucous membranes and oropharynx normal Head and Scalp: normocephalic Mouth: oral and palatal mucosa normal Eyes PERRL, EOMs intact bilaterally and conjunctivae normal Neck no lymphadenopathy, supple and no JVD Resp normal respiratory effort, no retractions, no use of accessory muscles and clear to auscultation bilaterally Cardio regular rate, regular rhythm, S1 normal heart sound, S2 normal heart sound and no murmurs GI normal to inspection, nondistended, normoactive bowel sounds, soft to palpation, non-tender and non-distended Extremity Extremity Narrative: both feet wrapped in bandage Neuro oriented x3, CN's II-XII intact bilaterally, moves all extremities and no focal motor deficits Sensorium / Orientation: awake Speech: speech normal Motor Exam: strength 5/5 throughout Psych affect normal Assessment & Plan Assessment/Plan (1) Diabetic foot infection: (2) Diabetes mellitus with neuropathy: PLAN: Plan #Diabetic foot ulcer with cellulitis * podiatry on board * had debridement of the feet done by podiatry * on IV vancomycin and zosyn * wound cultures pending * PT/OT On board. * #Type 2 diabetes mellitus with neuropathy * jardiance on hold.on lantus 65 units qhs * ISS. Accuchecks ACHS * A1C is 10.8 * on gabapentin for neuropathy * DVT prophylaxis: lovenox # Charges/Coding Visit Charges Inpatient E&M: 73920 Subs Hosp L2
[2022-05-22 15:48] VITALS: BP 114/85; PULSE 91; RESP 18; TEMP 36.7; O2SAT 99
[2022-05-22 17:34] LABS: M R Staph aureus DNA By PCR Negative (Negative); Probe Check PASS; Specimen Processing Control PASS
[2022-05-22] MEDS: Juven (unflavored) Packet 1 PACKET PO (18:16)
[2022-05-22 21:15] VITALS: BP 128/80; PULSE 80; RESP 18; TEMP 36.7; O2SAT 97
[2022-05-22] MEDS: Insulin Glargine-YFGN 100 UNIT/ML Pen 65 UNIT SC (21:15)
[2022-05-22] MEDS: Gabapentin 300 MG Capsule 600 MG PO (21:15)
[2022-05-23] MEDS: Acetaminophen 500 MG Tablet PO ×2 (03:37→09:23)
[2022-05-23 03:43] VITALS: BP 136/76; PULSE 86; RESP 18; TEMP 36.8; O2SAT 98
[2022-05-23 03:48] VITALS: BP 136/76; PULSE 86; RESP 18; TEMP 36.8; O2SAT 98
--- NOTE | 2022-05-23 06:55 | PCM.PN.SRG ---
Subjective Subjective Patient is seen today at bedside for follow-up b/l foot wounds. Patient reports mild discomfort to right great toe. She denies n/v/f/c. She is tolerating IV antibiotics. Objective Data Objective Data Paul is alert and orientated x 3. She does not appear in any distress Vascular: DP and PT pulses are palpable to b/l feet. CFT is brisk. Skin temperture is warm to warm. no erythema is noted to right foot. KEERTHI and TBI reviewed. she has normal blood flow to b/l feet. Derm: left hallux distal wound appears to be almost healed. Small noninfected ulceration is noted to medial left foot. Ulceration to right distal tuft of hallux presents with black eschar. there is no redness or drainage. This was debrided and there is underlying granular tissue without exposed bone. There is ulceration to dorsal aspect of right hallux that has approximately 75% granular tissue and 25% fibrotic slough that is firmly adherent. no exposed tendon, capsule or bone. no drainage. no signs of infection. There is deroofed blister of medial aspect of right 3rd toe with granular base and no exposed tendon or bone. there is drained blister of right 4th toe with skin intact. there is drained blister of right 2nd toe with some recurrent serous drainage. no redness or purulent drainage . Vital Signs: Vital Signs Temp Pulse Resp BP Pulse Ox O2 Del Method 98.2 F 86 18 136/76 H 98 Room Air 05/23/22 03:48 05/23/22 03:48 05/23/22 03:48 05/23/22 03:48 05/23/22 03:48 05/23/22 03:48 Oxygen Delivery Method Room Air Weight: 95.254 kg Body Mass Index (BMI) 33.9 Intake & Output: Intake and Output for Last 24 Hours 05/21/22 05/22/22 05/23/22 23:59 23:59 23:59 Intake Total 580.75 / 580.75 2808.25 / 2808.25 50 / 50 Balance 580.75 / 580.75 2808.25 / 2808.25 50 / 50 Lab / Micro Data Result Diagrams: 05/22/22 05:45 05/22/22 05:45 Labs: Laboratory Results - last 24 hr 05/21/22 18:36: POC Glucose 327 H 05/21/22 18:37: POC Glucose 312 H 05/21/22 18:38: POC Glucose 316 H 05/22/22 05:45: Hemoglobin A1c 10.8 H 05/22/22 14:10: MRSA (PCR) Negative Radiography Diagnostic Testing: Radiology Impression Ankle Brachial Index 05/21/22 17:06 Interpretation Summary Normal right lower extremity posterior tibialis and dorsalis pedis ankle-brachial indices of 1.42 and 1.19 respectively with normal triphasic Doppler waveforms. Normal right digital brachial index of 1.25 Normal left lower extremity posterior tibialis and dorsalis pedis ankle-brachial indices of 1.32 and 1.25 respectively with normal triphasic Doppler waveforms Normal left digital brachial index of 1.04 Ordering Physician: Nathen Sousa Referring Physician: MD Alice Fernando Performed By: El Camacho RVGlenn Assessment & Plan Assessment/Plan (1) Diabetic foot infection: PLAN: Patient was examined at bedside today. Her wounds to left foot are showing significant improvement and at this time, I would be fine with just band aide and neosporin. I had originally suggested surgical shoe of both feet but she feels using surgical shoes on both feet make ambulation difficult so I would be ok if she wears a sandal that avoids rubbing on medial arch ulceration. Her wounds to right foot show significant improvement. Given what she started with this past saturday, she has made great improvement with local wound care and IV antibiotics. I have her on vancomycin and zosyn. I do have wound cultures from [facility] that show + strep and + acinetobacter. I am going to wait for these cultures to grow out further but given - mrsa pcr, I suspect she will be able to stop the vancomycin later today and just continue with zosyn with future discharge back on keflex vs augmentin. The wound of right hallux is her largest wound and on exam today, there is black eschar to the distal tuft. This ulceration measures approximately 2.5 cm x 0.5 cm. Today under sterile condition, I debrided the black eschar with15 blade. total debridement was thru dermis. bleeding was controlled with pressure. I am going to treat with santyl. Santyl will help to provide enzymatic debridement and hoperfully bring further granulation tissue. I will also treat the dorsal hallux wound with santyl. There is still slight drainage from the nail bed and aquacel was applied today. Aquacel will help to aide in resoprtion of serous drainage. If we find that aquacel sticks to her wound, will consider discontinuing this. xrays from [facility] does not show any signs of bone infection. we discussed getting mri but given the short duration of these wounds and superficial nature, I feel deep bone infection is likely low risk. Discussed getting mri but patient feels that is not necessary so we will hold on this. if she discharges later this week and we find that the wounds are not progressing, will consider mri or follow-up xray. the wounds are progressing nicely so will hold on mri For her lesser toes of right foot, will treat with topical antibiotic and adaptic. Will provide percocet as needed for pain. ambulate in surgical shoe on right foot possible dischrge tomorrow pending evaluation tomorrow morning. PLAN: Plan Patient was examined at bedside today. Her wounds to left foot are showing significant improvement and at this time, I would be fine with just band aide and neosporin. I had originally suggested surgical shoe of both feet but she feels using surgical shoes on both feet make ambulation difficult so I would be ok if she wears a sandal that avoids rubbing on medial arch ulceration. Her wounds to right foot show significant improvement. Given what she started with this past saturday, she has made great improvement with local wound care and IV antibiotics. I have her on vancomycin and zosyn. I do have wound cultures from [facility] that show + strep and + acinetobacter. I am going to wait for these cultures to grow out further but given - mrsa pcr, I suspect she will be able to stop the vancomycin later today and just continue with zosyn with future discharge back on keflex vs augmentin. The wound of right hallux is her largest wound and on exam today, there is black eschar to the distal tuft. This ulceration measures approximately 2.5 cm x 0.5 cm. Today under sterile condition, I debrided the black eschar with15 blade. total debridement was thru dermis. bleeding was controlled with pressure. I am going to treat with santyl. Santyl will help to provide enzymatic debridement and hoperfully bring further granulation tissue. I will also treat the dorsal hallux wound with santyl. There is still slight drainage from the nail bed and aquacel was applied today. Aquacel will help to aide in resoprtion of serous drainage. If we find that aquacel sticks to her wound, will consider discontinuing this. xrays from [facility] does not show any signs of bone infection. we discussed getting mri but given the short duration of these wounds and superficial nature, I feel deep bone infection is likely low risk. Discussed getting mri but patient feels that is not necessary so we will hold on this. if she discharges later this week and we find that the wounds are not progressing, will consider mri or follow-up xray. the wounds are progressing nicely so will hold on mri For her lesser toes of right foot, will treat with topical antibiotic and adaptic. Will provide percocet as needed for pain. ambulate in surgical shoe on right foot possible dischrge tomorrow pending evaluation tomorrow morning.
[2022-05-23] MEDS: Insulin Lispro 100 UNIT/ML INSULN.PEN 20 UNIT SC ×3 (07:55→18:00)
[2022-05-23] MEDS: Juven (unflavored) Packet 1 PACKET PO ×2 (07:55→18:01)
[2022-05-23] MEDS: Insulin Lispro 100 UNIT/ML INSULN.PEN SC ×3 (07:57→18:00)
[2022-05-23 08:13] LABS: Absolute Lymphocyte Count 1.89 X10^3/uL (0.83-4.51); Basophil# 0.07 X10^3/uL; Eosinophil# 0.27 X10^3/uL; Eosinophils% 3.8 % (0-5); Hematocrit 38.6 % (37-47); Hemoglobin 12.4 g/dL (12.0-15.0); Lymphocyte # 1.89 X10^3/ul (0.83-4.51); Lymphocyte % 26.7 % (19-41); Mean Corp Hgb Conc 32.1 g/dL (32-36); Mean Corpuscular Hgb 29.6 pg (27.0-32.0); Mean Corpuscular Volume 92.1 fL (81-99); Mean Platelet Vol. 11.9 fl (6.2-12.0); Monocyte# 0.77 X10^3/uL; Monocyte% 10.9 % (0-10); NRBC Flagged by Analyzer 0 % (0-5); Neutrophil # 4.02 X10^3/uL (2.7-7.7); Neutrophil % 56.9 % (47-70); Platelet Count 327 K/mm3 (150-450); RBC Distribution Width CV 13.3 % (11.6-14.6); RBC Distribution Width SD 45.1 fl (35.1-43.9); Red Blood Count 4.19 M/mm3 (4.2-5.4); White Blood Count 7.1 K/mm3 (4.4-11.0)
[2022-05-23 08:25] LABS: Vancomycin, Trough Level 8.7 ug/mL (5.0-15.0)
--- NOTE | 2022-05-23 09:20 | CASEMGMT ---
Addendum entered by Crystal Tejeda 05/23/22 13:58: Spoke with wound nurse who states there are supplies in pt room that she will be sent home with that may last approx a month. Pt is aware of this and script will be given to her at [facility] for supplies in case she should run out prior to healing. Original Note: WERO SCHWARTZ made aware by pt nurse that pt reported not having insulin d/t needing precertification. WERO SCHWARTZ in to pt room, pt states in the past when she would go to fill her insulin she would need precert and it took time where she ran out of insulin and that is the cause of high blood sugars. Made pt aware that precerts do usually take up to 72 hours to be approved once submitted. Discussed refilling her insulin in advance to account for this time that may be delayed. Pt verbalized understanding and states since she has been able to message her [facility] at [facility] via my chart, this turnaround time has improved. Pt states she has enough insulin now and does not need refills. Pt wishes to have a company set up to send wound supplies. Pt cannot remember who she had in the past. WERO SCHWARTZ to check records to see if this info can be obtained.
[2022-05-23] MEDS: oxyCODONE 5 MG Tablet PO ×2 (09:22→22:06)
[2022-05-23] MEDS: Enoxaparin 40 MG/0.4 ML Syringe SC (09:23)
[2022-05-23 10:00] VITALS: BP 129/75; PULSE 78; RESP 18; TEMP 36.7; O2SAT 95
[2022-05-23] MEDS: Collagenase 30gm Tube 1 APPLIC TOPICAL (10:33)
--- NOTE | 2022-05-23 10:47 | PN.HOSP_ITS ---
Subjective Subjective Patient seen and examined. She still complained of pain in her foot. Review of systems otherwise negative. Objective Data Objective Data Vital Signs: Vital Signs Temp Pulse Resp BP Pulse Ox O2 Del Method 98.2 F 86 18 136/76 H 98 Room Air 05/23/22 03:48 05/23/22 03:48 05/23/22 03:48 05/23/22 03:48 05/23/22 03:48 05/23/22 03:48 Oxygen Delivery Method Room Air Weight: 209 lb 15.986 oz Body Mass Index (BMI) 33.9 Intake & Output: Intake and Output for Last 24 Hours 05/21/22 05/22/22 05/23/22 23:59 23:59 23:59 Intake Total 580.75 / 580.75 2808.25 / 2808.25 50 / 50 Balance 580.75 / 580.75 2808.25 / 2808.25 50 / 50 Lab / Micro Data Result Diagrams: 05/23/22 06:55 05/22/22 05:45 Labs: Laboratory Results - last 24 hr 05/22/22 14:10: MRSA (PCR) Negative 05/23/22 06:55: Vancomycin Trough 8.7 05/23/22 06:55: WBC 7.1, RBC 4.19 L, Hgb 12.4, Hct 38.6, MCV 92.1, MCH 29.6, MCHC 32.1 D, RDW Std Deviation 45.1 H, RDW Coeff of Pricila 13.3, Plt Count 327, MPV 11.9, Immature Gran % (Auto) 0.700, Neut % (Auto) 56.9, Lymph % (Auto) 26.7, [place] % (Auto) 10.9 H, Eos % (Auto) 3.8, Baso % (Auto) 1.0, Absolute Neuts (auto) 4.0, Absolute Lymphs (auto) 1.89, Nucleated RBC % 0 Radiography Diagnostic Testing: Radiology Impression Ankle Brachial Index 05/21/22 17:06 Interpretation Summary Normal right lower extremity posterior tibialis and dorsalis pedis ankle- brachial indices of 1.42 and 1.19 respectively with normal triphasic Doppler waveforms. Normal right digital brachial index of 1.25 Normal left lower extremity posterior tibialis and dorsalis pedis ankle-brachial indices of 1.32 and 1.25 respectively with normal triphasic Doppler waveforms Normal left digital brachial index of 1.04 Ordering Physician: Nathen Sousa Referring Physician: MD Alice Fernando Performed By: El Camacho, RVT Physical Exam Const alert, oriented x3, no apparent distress and well nourished HEENT head/scalp atraumatic, moist oral mucous membranes and oropharynx normal Head and Scalp: normocephalic Mouth: oral and palatal mucosa normal Eyes PERRL, EOMs intact bilaterally and conjunctivae normal Neck no lymphadenopathy, supple and no JVD Resp normal respiratory effort, no retractions, no use of accessory muscles and clear to auscultation bilaterally Auscultation: Negative for crackles, rhonchi or wheezes Cardio regular rate, regular rhythm, S1 normal heart sound, S2 normal heart sound, no murmurs, no rub, no gallops and no clicks GI normal to inspection, nondistended, normoactive bowel sounds, soft to palpation, non-tender and non-distended Extremity normal to inspection, full ROM and no clubbing, cyanosis or edema Extremity Narrative: both feet wrapped in bandage Neuro oriented x3, CN's II-XII intact bilaterally, moves all extremities and no focal motor deficits Neuro Narrative: Decreased sensation peripherally at bilateral lower extremities Sensorium / Orientation: awake Speech: speech normal Motor Exam: strength 5/5 throughout Psych affect normal Assessment & Plan Assessment/Plan (1) Diabetic foot infection: (2) Diabetes mellitus with neuropathy: PLAN: Plan #Diabetic foot ulcer with cellulitis * podiatry on board * had debridement of the feet done by podiatry * on IV vancomycin and zosyn * wound cultures pending; ordered in the office * PT/OT On board. * #Type 2 diabetes mellitus with neuropathy * jardiance on hold.on lantus 65 units qhs * ISS. Accuchecks ACHS * A1C is 10.8 * get dietitian consult to deputy county counsel about diabetic diet. * on gabapentin for neuropathy * DVT prophylaxis: lovenox Charges/Coding Visit Charges Inpatient E&M: 45389 Subs Hosp L2
--- NOTE | 2022-05-23 15:56 | PHA.PHARE_ITS ---
Consult Pharmacy has been consulted to manage selected antiobiotic: Vancomycin Type of Consult: Follow-up Suspected Infection: Skin/Soft tissue Prior Doses of Antibiotics Received/Current Regimen: Currently on 1500mg iv q12h. Labs: Sodium 138 mmol/L (136-145) 05/22/22 05:45 Potassium 3.5 mmol/L (3.5-5.1) 05/22/22 05:45 Chloride 104 mmol/L (98-107) 05/22/22 05:45 Carbon Dioxide 31.0 mmol/L (21.0-32.0) 05/22/22 05:45 Anion Gap 3 (5-15) L 05/22/22 05:45 BUN 11 mg/dL (7-18) 05/22/22 05:45 Creatinine 0.70 mg/dL (0.55-1.02) 05/22/22 05:45 Est GFR (MDRD) Af Amer 117 mL/min (>60) 05/22/22 05:45 Est GFR (MDRD) Non-Af 97 mL/min (>60) 05/22/22 05:45 BUN/Creatinine Ratio 15.7 RATIO (10-20) 05/22/22 05:45 Glucose 188 mg/dL (74-106) H 05/22/22 05:45 Vancomycin Trough 8.7 ug/mL (5.0-15.0) 05/23/22 06:55 Weight used for dosin.2 kg Estimated Creatinine Clearance: >120 Goal Trough: 10-15 mcg/mL Pharmacy Plan for Drug Dosing: Trough today 8.7 ~12.5 hours post last dose. WBC improving, no fever, wound improving per development trainer. Will leave dose the same. Manager Supply Chain Planning note says vancomycin may be DC'd. Pharmacy Service will continue to monitor and adjust dosing as required.
[2022-05-23 16:00] VITALS: BP 157/90; PULSE 80; RESP 18; TEMP 36.7; O2SAT 95
[2022-05-23 22:00] VITALS: BP 138/84; PULSE 74; RESP 18; TEMP 36.7; O2SAT 96
[2022-05-23] MEDS: Insulin Glargine-YFGN 100 UNIT/ML Pen 65 UNIT SC (22:06)
[2022-05-23] MEDS: Gabapentin 300 MG Capsule 600 MG PO (22:06)
[2022-05-23 23:00] VITALS: BP 138/84; PULSE 74; RESP 18; TEMP 36.7; O2SAT 96
[2022-05-24 04:00] VITALS: BP 118/74; PULSE 89; RESP 16; TEMP 36.7; O2SAT 97
[2022-05-24 05:00] VITALS: BP 118/74; PULSE 89; RESP 16; TEMP 36.7; O2SAT 97
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
--- NOTE | 2022-05-24 07:15 | DS.PCM_ITS ---
Providers Date of Admission: 05/21/22 Primary Care Physician: Dr. 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 The right foot remains the most critical issue for this patient due to extensive colon to right great toe, right 2nd-4th toes. The wounds appear much better today. There is a small amount of slough to distal hallux. We debrided this toe yesterday and although she experienced pain, she tolerated this nicely. I am going to have patient continue with santyl to the right great toe both dorsally and distally . I am going to hold on aquacel to the right hallux as this did appear to stick to her toe. I will have patient cleanse the right foot with normal saline every day, apply santyl and adaptic to right great toe. she will continue with surgical shoe. for her right 2nd, 3rd and 4th toe, she will cleanse the wounds with saline and apply neosporin, adaptic and guaze. Cultures from saturday show + strep, acinetobacter and now staph aureus. PCR negative for mrsa. I reviewed case with our ID experts at [facility]. I am going to have patient discharge home on 10 days of Augmentin. I reviewed xrays of right foot from this past Saturday. xrays do not show any gas in soft-tissue and no signs of bone infectoin. These wounds have been present for just over 1.5 weeks she tells me. I informed her that the longer she has these wounds, the risk of bone infection increases. I offered mri today to evaluate for bone infection. her CRP was elevated at 19. her ESR was elevated at 38. I would expect these values to be much higher in the setting of osteomyelitis. Neverthless, MRI was offered. She elected to forego further testing. I will repeat xrays in 2 weeks and I will be monitoring this patient closely. if symptoms change, she is to present to ED. Patient understands that despite our efforts on healing these wounds, her greatest risk is her poor sugar control. Her a1c is 10.8 on admission. these labs do place her at risk of slow healing. She was informed she is at risk of amputation. she understands this. For her left foot, I want her to continue with neosporin and band aide she will ambulate with surgical shoe on right foot. if she is able to use a walker to keep weight off the right foot, this will also help. she is ok to discharge home today if cleared medically. I will be calling prescriptions in to [facility]. will call in augmentin and will call in percocet for pain. (2) Second degree burn: Status: Acute Plan: as above. Medications at Discharge Home Medications insulin lispro 100 unit/mL subcutaneous solution (Humalog U-100 Insulin) 12 - 25 unit SQ TID 08/26/18 insulin degludec 100 unit/mL subcutaneous solution 65 unit SQ QHS 08/17/20 cephalexin 500 mg capsule 500 mg PO Q6 #40 caps 05/20/22 empagliflozin 25 mg tablet (Jardiance) 25 mg PO DAILY 05/20/22 flash glucose scanning reader (FreeStyle [place] 2 [place]) 05/21/22 gabapentin 300 mg capsule 600 mg PO QHS 05/21/22 Hospital Course Operations None Procedures None Summary of Care Provided Minutes Spent on Discharge: 60 Hospital Course: patient was admitted on 05/22/22 for diabetic foot infection. She was treated with vancomycin and zosyn. Her WBC was normal throughout admission. ESR was 38 and crp was 19. wound culture from [facility] wsa + strep, staph aureus and aci netobacter and xrays at [facility] were negative for bone infection. She was treated with local wound care and her toes do look improved on day of discharge. She will discharge today 05/24/22 and will be instructed to take augmentin x 10 days. Weight / BMI Weight Weight: 95.254 kg Body Mass Index (BMI) 33.9 ABG / Lab / Microbiology Data Result Diagrams: 05/23/22 06:55 05/22/22 05:45 Laboratory: Laboratory Results - last 24 hr 05/23/22 06:55: Vancomycin Trough 8.7 05/23/22 06:55: WBC 7.1, RBC 4.19 L, Hgb 12.4, Hct 38.6, MCV 92.1, MCH 29.6, M CHC 32.1 D, RDW Std Deviation 45.1 H, RDW Coeff of Pricila 13.3, Plt Count 327, MPV 11.9, Immature Gran % (Auto) 0.700, Neut % (Auto) 56.9, Lymph % (Auto) 26.7, [place] % (Auto) 10.9 H, Eos % (Auto) 3.8, Baso % (Auto) 1.0, Absolute Neuts (auto) 4.0, Absolute Lymphs (auto) 1.89, Nucleated RBC % 0 D/C Instructions Discharge Activity: May Not Shower (I would prefer that you keep your right foot out of water) and Use Walker Weight Bearing Status: Weight bearing as tolerated (use surgical shoe on right foot. if you have walker or crutch or cane, you can limit the weight to your right foot.) Call your doctor if your incision/area has: Continuous Slow Oozing, Increased Pain/ Swelling, Increased Redness and Foul Smelling Discharge Call your doctor if you observe: Fever of 101 or Higher and Coldness, Increased Pain Change Dressing in: 1 day (apply santyl and adaptic and guaze to right great toe. apply neosporin and adaptic to right 2nd, 3rd and 4th toe. secure with guaze wrap and mukesh wrap. Apply neosporin and band aide to wounds of left foot. ) Cleanse incision/area with: Normal Saline and - (apply santyl and adaptic and guaze to right great toe. apply neosporin and adaptic to right 2nd, 3rd and 4th toe. secure with guaze wrap and mukesh wrap. Apply neosporin and band aide to wounds of left foot. ) Please Follow Up With: Nathen Sousa DPM When: Next Saturday. If you have any issues, present to ED. 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 Meaningful Use Info Meaningful Use Diagnoses (Choose all that apply): None applicable Discharge Plan Admission Admit Date/Time: 05/21/22 15:37 Primary Reason for Your Visit: second degree colon Attending Provider: Nathen Sousa Primary Care Provider: Fernando Jenkins Consulting Providers: Lani Guzman Discharge Orders/Prescriptions Prescriptions: No Action insulin lispro [Humalog U-100 Insulin] 100 UNIT/ML solution 12 - 25 unit SQ TID Protocol: 4. Sliding Scale Insulin High-Med Dosing Condition: 150-199 mg/dl = 2 units Condition: 200-259 mg/dl = 4 units Condition: 260-324 mg/dl = 6 units Condition: 325-374 mg/dl = 8 units Condition: 375-409 mg/dl = 10 units Condition: 410-449 mg/dl = 11 units Condition: Greater than 449 call physician Protocol Text: - Use for Total Daily Dose of Insulin 56-80 units - Patient who are insulin resistant or septic HIGH MEDIUM DOSING ALGORITHM insulin degludec 100 UNIT/ML solution 65 unit SQ QHS Jardiance 25 mg tablet 25 mg PO DAILY Label Comments: TAKE 1 TABLET BY MOUTH EVERY DAY WITH BREAKFAST cephalexin 500 mg capsule 500 mg PO Q6 Qty: 40 0RF gabapentin 300 mg capsule 600 mg PO QHS (DME) FreeStyle [place]ague 2 [place] Misc MISCELLANEOUS Label Comments: USE TO CHECK BLOOD SUGAR AT LEAST FOUR (4) TIMES DAILY. Referrals / Follow Up: Fernando Jenkins MD [Primary Care Provider] - Disposition Disposition (needs filled in before D/C Order can be placed): Home, Self Care
[2022-05-24] MEDS: Insulin Lispro 100 UNIT/ML INSULN.PEN 20 UNIT SC (08:24)
[2022-05-24] MEDS: Enoxaparin 40 MG/0.4 ML Syringe SC (08:24)
[2022-05-24] MEDS: Juven (unflavored) Packet 1 PACKET PO (08:25)
--- NOTE | 2022-05-24 08:30 | WOUNDNOTE ---
Dressing changes to bilateral feet per Dr Sousa. Pt tolerated well. plan for discharge home today. script for wound care supplied signed per Dr Sousa and is on the front of the chart.
[2022-05-24 09:00] VITALS: BP 159/99; PULSE 88; RESP 18; TEMP 36.8; O2SAT 94
[2022-05-24 09:04] VITALS: BP 159/99; PULSE 88; RESP 18; TEMP 36.8; O2SAT 94
--- NOTE | 2022-05-24 10:46 | CASEMGMT ---
Addendum entered by Crystal Tejeda 05/24/22 11:03: Pt left the building before SW updated regarding housing resources. Original Note: [facility]ERO CM in to pt room, provided pt with rx for wound care. Pt states she still feels that she can perform own dressing changes. Pt is concerned about her living situation as she states it is cold and they use propane to heat which is the cause of her colon. Pt is interested in resources for housing. Will update SW. Pt states she has been to [facility] in [place] and does not want to go back. She states she is checking into the endo in [place] and denies any need for help with this.
--- NOTE | 2022-05-24 14:52 | PN.HOSP_ITS ---
Subjective Subjective Patient seen and examined. She has no complaints and had an uneventful night. Review of systems is otherwise negative. Objective Data Objective Data Vital Signs: Vital Signs Temp Pulse Resp BP Pulse Ox O2 Del Method 98.3 F 88 18 159/99 H 94 Room Air 05/24/22 09:04 05/24/22 09:04 05/24/22 09:04 05/24/22 09:04 05/24/22 09:04 05/24/22 09:04 Oxygen Delivery Method Room Air Weight: 209 lb 15.986 oz Body Mass Index (BMI) 33.9 Intake & Output: Intake and Output for Last 24 Hours 05/22/22 05/23/22 05/24/22 23:59 23:59 23:59 Intake Total 2808.25 / 2808.25 150 / 150 580 / 580 Balance 2808.25 / 2808.25 150 / 150 580 / 580 Lab / Micro Data Result Diagrams: 05/23/22 06:55 05/22/22 05:45 Physical Exam Const alert, oriented x3, no apparent distress and well nourished HEENT head/scalp atraumatic, moist oral mucous membranes and oropharynx normal Head and Scalp: normocephalic Mouth: oral and palatal mucosa normal Eyes PERRL, EOMs intact bilaterally and conjunctivae normal Neck no lymphadenopathy, supple and no JVD Resp normal respiratory effort, no retractions, no use of accessory muscles and clear to auscultation bilaterally Auscultation: Negative for crackles, rhonchi or wheezes Cardio regular rate, regular rhythm, S1 normal heart sound, S2 normal heart sound, no murmurs, no rub, no gallops and no clicks GI normal to inspection, nondistended, normoactive bowel sounds, soft to palpation, non-tender and non-distended Extremity normal to inspection, full ROM and no clubbing, cyanosis or edema Extremity Narrative: both feet wrapped in bandage Neuro oriented x3, CN's II-XII intact bilaterally, moves all extremities and no focal motor deficits Sensorium / Orientation: awake Speech: speech normal Motor Exam: strength 5/5 throughout Psych affect normal Assessment & Plan Assessment/Plan (1) Diabetic foot infection: (2) Diabetes mellitus with neuropathy: PLAN: Plan #Diabetic foot ulcer with cellulitis * podiatry on board * had debridement of the feet done by podiatry * on IV vancomycin and zosyn; to be discharged home on Augmentin per primary team orthopedics * wound cultures pending; ordered in the office * PT/OT On board. * #Type 2 diabetes mellitus with neuropathy * jardiance on hold.on lantus 65 units qhs * ISS. Accuchecks ACHS * A1C is 10.8 * get dietitian consult to field counsel about diabetic diet. * on gabapentin for neuropathy * recommend referral to endocrinology on outpatient basis * DVT prophylaxis: lovenox Charges/Coding Visit Charges Inpatient E&M: 01778 Subs Hosp L2
== END 2022-05-24 11:03 | disposition home or self-care (01) | DRG 380 ==
PROVIDERS: Internal Medicine; Student in an Organized Health Care Education/Training Program; Admitting Provider Podiatrist Foot & Ankle Surgery; PCP Family Medicine; Visit Provider Podiatrist Foot & Ankle Surgery
DX: E11.628 Type 2 diabetes mellitus with other skin complications (principal); L97.512 Non-pressure chronic ulcer of other part of right foot with fat layer exposed; L97.522 Non-pressure chronic ulcer of other part of left foot with fat layer exposed; E11.621 Type 2 diabetes mellitus with foot ulcer; L03.115 Cellulitis of right lower limb; E11.40 Type 2 diabetes mellitus with diabetic neuropathy, unspecified; E11.65 Type 2 diabetes mellitus with hyperglycemia; Z79.4 Long term (current) use of insulin; T25.231A Burn of second degree of right toe(s) (nail), initial encounter; T25.221A Burn of second degree of right foot, initial encounter; T24.231A Burn of second degree of right lower leg, initial encounter; L08.9 Local infection of the skin and subcutaneous tissue, unspecified
CPT/HCPCS: 36415; 80053; 80202; 82962; 83036; 85025; 85652; 86140; 87641; 93922; 97802; 99283; J7040; J7050; A4216

== ENCOUNTER 2022-07-02 09:15 | Outpatient (RCR) | payer MEDICAID, SELFPAY ==
[2022-06-15 10:10] VITALS: BP 159/87; PULSE 84; RESP 18; TEMP 36.1; BMI 34.5
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
[2022-06-21 15:27] VITALS: BP 150/83; PULSE 96; RESP 20; TEMP 35.6; BMI 34.5
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
[2022-06-29 10:41] VITALS: BP 157/66; PULSE 107; RESP 18; TEMP 35.9; BMI 34.5
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
--- NOTE | 2022-07-02 09:26 | EKG12_ITS ---
Test Reason : PRE-OP Blood Pressure : / mmHG Vent. Rate : 080 BPM Atrial Rate : 080 BPM P-R Int : 150 ms QRS Dur : 076 ms QT Int : 370 ms P-R-T Axes : 000 010 029 degrees QTc Int : 426 ms Normal sinus rhythm Normal ECG Confirmed by ANTONIETA BORREGO, JASBIR ([id number]), editorial assistant JORGITO PALMUBO ([id number]) on 07/03/2022 11:29:48 AM Referred By: Heather Power Confirmed By:JASBIR FUNG MD
[2022-07-02 10:24] LABS: Absolute Lymphocyte Count 1.52 X10^3/uL (0.83-4.51); Absolute Neutrophil Count 3.9 X10^3/uL (2.0-7.7); Basophil# 0.05 X10^3/uL; Basophil% 0.8 % (0-1); Eosinophil# 0.18 X10^3/uL; Eosinophils% 2.8 % (0-5); Hematocrit 43.9 % (37-47); Lymphocyte # 1.52 X10^3/ul (0.83-4.51); Lymphocyte % 23.9 % (19-41); Mean Corp Hgb Conc 31.9 g/dL (32-36); Mean Corpuscular Hgb 29.4 pg (27.0-32.0); Mean Platelet Vol. 11.7 fl (6.2-12.0); Monocyte# 0.68 X10^3/uL; Monocyte% 10.7 % (0-10); NRBC Flagged by Analyzer 0 % (0-5); Neutrophil # 3.89 X10^3/uL (2.7-7.7); Neutrophil % 61.3 % (47-70); Platelet Count 359 K/mm3 (150-450); RBC Distribution Width CV 13.2 % (11.6-14.6); RBC Distribution Width SD 44.7 fl (35.1-43.9); Red Blood Count 4.77 M/mm3 (4.2-5.4); White Blood Count 6.4 K/mm3 (4.4-11.0)
[2022-07-02 11:06] LABS: ALB/GLOB Ratio 0.6 RATIO (0.9-2.4); AST(SGOT) 23 U/L (15-37); Alanine Aminotransfer ALT/SGPT 28 U/L (13-56); Albumin, Serum 2.9 g/dL (3.2-5.0); Alkaline Phosphatase 93 U/L (45-117); Anion Gap 7 (5-15); BUN 10 mg/dL (7-18); BUN/Creat Ratio 12.7 RATIO (10-20); Calcium,Total 8.9 mg/dL (8.5-10.1); Chloride 104 mmol/L (98-107); Creatinine, Serum 0.79 mg/dL (0.55-1.02); EST Glomerular Filtration Rate 84 mL/min (>60); Est Glom Filt Rate - Afr Amer 102 mL/min (>60); Estimated Creatinine Clearance 85.96 ml/min; Globulin 4.5 g/dL (2.2-4.2); Glucose 243 mg/dL (74-106); Potassium 4.3 mmol/L (3.5-5.1); Protein, Total 7.4 g/dL (6.4-8.2); Sodium Level 139 mmol/L (136-145)
== END 2022-07-10 23:59 | disposition home or self-care (01) ==
LOC: WC 09:15
PROVIDERS: PCP Family Medicine; Referring Provider Physician Assistant; Visit Provider Physician Assistant
DX: E11.621 Type 2 diabetes mellitus with foot ulcer (principal); L97.512 Non-pressure chronic ulcer of other part of right foot with fat layer exposed; E11.42 Type 2 diabetes mellitus with diabetic polyneuropathy; Z79.4 Long term (current) use of insulin; T25.031D Burn of unspecified degree of right toe(s) (nail), subsequent encounter; X16.XXXD Contact with hot heating appliances, radiators and pipes, subsequent encounter
CPT/HCPCS: 11042; 36415; 80053; 83036; 85025; 87070; 87075; 87077; 87186; 87205; 93005; 99213; G0463

== ENCOUNTER 2022-08-01 10:30 | Outpatient (RCR) | payer MEDICAID, SELFPAY ==
[2022-07-11 00:13] VITALS: BP 157/66; PULSE 107; RESP 18; TEMP 35.9; BMI 34.5
[2022-07-20 10:44] VITALS: BP 161/92; PULSE 95; TEMP 36.2; BMI 34.5
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
[2022-07-27 10:40] VITALS: BP 149/82; PULSE 94; RESP 16; TEMP 36.1; BMI 34.5
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
[2022-08-01 10:23] VITALS: BP 158/94; PULSE 97; RESP 19; TEMP 36.2; BMI 34.5
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
== END 2022-08-07 23:59 | disposition home or self-care (01) ==
LOC: WC 10:30
PROVIDERS: PCP Family Medicine; Referring Provider Physician Assistant; Visit Provider Nurse Practitioner
DX: E11.621 Type 2 diabetes mellitus with foot ulcer (principal); L97.512 Non-pressure chronic ulcer of other part of right foot with fat layer exposed; E11.42 Type 2 diabetes mellitus with diabetic polyneuropathy; Z79.4 Long term (current) use of insulin; T25.031D Burn of unspecified degree of right toe(s) (nail), subsequent encounter; X16.XXXD Contact with hot heating appliances, radiators and pipes, subsequent encounter
CPT/HCPCS: 15275; 87070; 87075; 87077; 87186; 87205; Q4186

== ENCOUNTER 2022-08-29 09:30 | Outpatient (RCR) | payer MEDICAID, SELFPAY ==
[2022-08-08 00:11] VITALS: BP 158/94; PULSE 97; RESP 19; TEMP 36.2; BMI 34.5
[2022-08-08 10:00] VITALS: BP 145/85; PULSE 90; RESP 17; TEMP 36.1; BMI 34.5
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
[2022-08-15 09:39] VITALS: BP 151/77; PULSE 78; TEMP 35.7; BMI 34.5
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
[2022-08-22 09:31] VITALS: BP 162/82; RESP 16; TEMP 35.4; BMI 34.5
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
[2022-08-29 09:48] VITALS: BP 151/87; PULSE 81; TEMP 35.9; BMI 34.5
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
== END 2022-09-07 23:59 | disposition home or self-care (01) ==
LOC: WC 09:30
PROVIDERS: PCP Family Medicine; Referring Provider Physician Assistant; Visit Provider Nurse Practitioner
DX: E11.621 Type 2 diabetes mellitus with foot ulcer (principal); L97.511 Non-pressure chronic ulcer of other part of right foot limited to breakdown of skin; L97.512 Non-pressure chronic ulcer of other part of right foot with fat layer exposed; E11.42 Type 2 diabetes mellitus with diabetic polyneuropathy; T25.031D Burn of unspecified degree of right toe(s) (nail), subsequent encounter; X16.XXXD Contact with hot heating appliances, radiators and pipes, subsequent encounter
CPT/HCPCS: 11042; 15275; 15277; 87070; 87075; 87077; 87205; Q4186

== ENCOUNTER 2022-09-01 11:17 | Emergency (ER) | payer MEDICAID, SELFPAY ==
[2022-09-01 11:18] VITALS: BP 143/89; PULSE 97; RESP 18; TEMP 36.9; O2SAT 99; BMI 34.0
--- NOTE | 2022-09-01 11:34 | EX.ED.DYSGE1 ---
HPI <HERLINDA Loza - Last Filed: 09/01/22 16:05> History of Present Illness Chief Complaint: General Illness Narrative Narrative: Presenting today due to a sore throat, body aches, and a subjective fever that started today. 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 She saw urgent care for this issue and they placed her on prednisone which did not help her symptoms. Patient has a history of neuropathy in her feet and uncontrolled diabetes and thinks that this kind of feels like neuropathy. [facility] <HERLINDA Loza - Last Filed: 09/01/22 16:05> [facility] Medical History (Updated 09/01/22 @ 13:17 by HERLINDA Loza) Diabetes Home Medications insulin lispro 100 unit/mL subcutaneous solution (Humalog U-100 Insulin) 12 - 25 unit SQ TID 08/26/18 [History Last Taken 05/20/22] insulin degludec 100 unit/mL subcutaneous solution 65 unit SQ QHS 08/17/20 [History Last Taken 05/20/22] empagliflozin 25 mg tablet (Jardiance) 25 mg PO DAILY 05/20/22 [History Last Taken 05/21/22] flash glucose scanning reader ([employer] [place]ague 2 [place]) 05/21/22 [History Last Taken Unknown] gabapentin 300 mg capsule 600 mg PO QHS 05/21/22 [History Last Taken 05/20/22] dulaglutide 1.5 mg/0.5 mL subcutaneous pen injector (Trulicity) 1.5 mg subcut QWEEK 06/15/22 [History Last Taken Unknown] Lactobacillus acidophilus-Bifidobac.animalis 10 billion cell capsule (Digestive Probiotic) 1 cap PO DAILY #30 caps 06/29/22 [Rx Last Taken Unknown] levofloxacin 500 mg tablet 500 mg PO DAILY 08/08/22 [History Last Taken Unknown] Allergy/AdvReac Type Severity Reaction Status Date / Time Sulfa (Sulfonamide Allergy Hives Verified 09/01/22 11:18 Antibiotics) doxycycline AdvReac Rash Verified 09/01/22 11:18 Family History Father Diabetes Surgical History delivery delivered History of cholecystectomy Tubal ligation status Social History Smoking Status: Never smoker alcohol intake: never substance use type: does not use caffeine: Yes frequency: 3-4 times per week seatbelt use: always do you feel safe at home: Yes additional social history: - Unemployed ROS <HERLINDA Loza - Last Filed: 09/01/22 16:05> ROS ED Constitutional Constitutional ED: Reports fever(s); Denies chills or sweats Eyes Eyes: Denies blurry vision or diplopia ENT ENT ED: Reports sore throat Cardiovascular Cardiovascular: Denies chest pain Respiratory/Chest Respiratory/Chest: Denies cough or dyspnea Gastrointestinal Gastrointestinal: Reports other Details: Admits to mild generalized abdominal cramping. ; Denies constipation, diarrhea, nausea or vomiting Musculoskeletal Musculoskeletal: Reports arthralgias and myalgias; Denies back pain or neck pain Integumentary Denies abscess, Abrasions or rash Neurologic Neurologic: Denies confusion, dizziness or paresthesias Psychiatric Psychiatric: Denies anxiety, depression, suicidal ideation or suicidal thoughts EXAM <HERLINDA Loza - Last Filed: 09/01/22 16:05> Physical Exam Const Vital Signs: 09/01/22 11:18 09/01/22 12:48 Temperature 98.4 F Temperature Source Temporal Pulse Rate 97 Respiratory Rate 18 Respiratory Effort Normal Non-Labored Blood Pressure 143/89 H Blood Pressure Mean 107 Pulse Ox 99 Oxygen Delivery Method Room Air Positive well nourished, well developed and no apparent distress General Appearance ED: well developed HEENT Reports normocephalic, head/scalp atraumatic, TM's clear and moist mucous membranes HEENT Narrative: Throat erythemic with exudates on the left tonsil. Uvula midline, no trismus, no drooling. Tympanic Membrane ED: Yes TM's clear Eyes PERRL and EOMs intact bilaterally Neck full ROM and supple Chest Wall inspection of chest normal Resp normal respiratory effort and clear to auscultation bilaterally Cardio regular rate and regular rhythm GI soft to palpation, non-tender, non-distended and no masses Back/Spine normal ROM and normal to inspection Extremity normal to inspection and full ROM Extremity Narrative: Edema or erythema in hands bilaterally, radial pulses 2+ and equal bilaterally, good capillary refill, sensation intact. Neuro oriented x3, CN's II-XII intact bilaterally, moves all extremities, no focal motor deficits and no sensory deficits noted Sensorium / Orientation: awake and alert Psych mental status grossly normal and thought process normal Skin no rashes or lesions noted and no wounds <Dr. Jacoby Bright MD - Last Filed: 09/01/22 11:53> Physical Exam Const Vital Signs: 09/01/22 11:18 09/01/22 12:48 Temperature 98.4 F Temperature Source Temporal Pulse Rate 97 Respiratory Rate 18 Respiratory Effort Normal Non-Labored Blood Pressure 143/89 H Blood Pressure Mean 107 Pulse Ox 99 Oxygen Delivery Method Room Air MDM <HERLINDA Loza - Last Filed: 09/01/22 16:05> [facility] MDM Narrative Medical decision making narrative: Patient presenting today due to vague complaints of pain and swelling in her hands bilaterally that she has had for 3 weeks. She is well-appearing and in no acute distress. Her hands do not look edematous or erythemic, I do not have any concerns for infection in patient's hands. She denies a history of heart failure. She states that she has had the symptoms in her hands ever since she has been working again in a labor-intensive job. Do not feel that there is anything that can be emergently done for patient's hands, it is related to her using the more work and have told her to take Tylenol/ ibuprofen for the pain. Her main complaint is a sore throat and body aches. She does have a slightly erythemic throat with exudates on the left tonsil, rapid strep will be obtained to rule out strep throat and is negative. Patient likely has a viral illness and has been given supportive care measures. She be discharged home in stable condition and is comfortable with plan. I have personally performed a face to face assessment of the patient and have reviewed the JULIAN Note. I performed a substantive portion of the visit including all aspects of the following. My [place] findings include: History is [42-year-old female history of diabetes complaining of sore throat and intermittent hand swelling bilaterally for the last several weeks. She states she has been working more and does a lot using her arms and hands. She was seen in urgent care they put her on prednisone she finished that course of medication just yesterday. She has not noticed a significant change. She states the sore throat began yesterday. Able to swallow. Evaluated the patient with our physician personal injury legal assistant] Exam is [18-year-old female no acute distress. Vital signs are stable afebrile. HEENT exam mild exudate left tonsil. No significant large amount of either tonsil. No abscess. Neck nontender. No lymphadenopathy. Lungs clear to auscultation bilaterally. Heart regular rhythm no murmur. Rate about 90. Chest wall nontender. Abdomen soft nontender. Moving all 4 extremities. I do not appreciate any swelling or edema of her upper or lower extremities. Specifically of her hands. She has full flexion-extension. Equal symmetrical radial pulses. Neurologically she is awake and alert.] Medical Decision Making [I suspect the patient has discomfort in her arms and hands from increased use at work. I instructed to use ibuprofen. We will check a rapid strep for her sore throat. I suspect this is a virus. I do not think she needs any further labs or imaging. She had normal labs in June. Normal kidney function then.] Other additions or changes: [None] <Dr. Jacoby Bright MD - Last Filed: 09/01/22 11:53> [facility] MDM Narrative Medical decision making narrative: Patient presenting today due to vague complaints of pain and swelling in her hands bilaterally that she has had for 3 weeks. Her hands do not look edematous or erythemic, I do not have any concerns for infection in patient's hands. She denies a history of heart failure. She states that she has had the symptoms in her hands ever since she has been working again in a labor-intensive job. Her main complaint is a sore throat and body aches. She does have an erythemic throat with exudates on the left tonsil, rapid strep will be obtained to rule out strep throat. I have personally performed a face to face assessment of the patient and have reviewed the JULIAN Note. I performed a substantive portion of the visit including all aspects of the following. My [place] findings include: History is [42-year-old female history of diabetes complaining of sore throat and intermittent hand swelling bilaterally for the last several weeks. She states she has been working more and does a lot using her arms and hands. She was seen in urgent care they put her on prednisone she finished that course of medication just yesterday. She has not noticed a significant change. She states the sore throat began yesterday. Able to swallow. Evaluated the patient with our physician personal injury legal assistant] Exam is [18-year-old female no acute distress. Vital signs are stable afebrile. HEENT exam mild exudate left tonsil. No significant large amount of either tonsil. No abscess. Neck nontender. No lymphadenopathy. Lungs clear to auscultation bilaterally. Heart regular rhythm no murmur. Rate about 90. Chest wall nontender. Abdomen soft nontender. Moving all 4 extremities. I do not appreciate any swelling or edema of her upper or lower extremities. Specifically of her hands. She has full flexion-extension. Equal symmetrical radial pulses. Neurologically she is awake and alert.] Medical Decision Making [I suspect the patient has discomfort in her arms and hands from increased use at work. I instructed to use ibuprofen. We will check a rapid strep for her sore throat. I suspect this is a virus. I do not think she needs any further labs or imaging. She had normal labs in June. Normal kidney function then.] Other additions or changes: [None] Discharge Plan Triage Chief Complaint: General Illness ED Midlevel Provider: Sarah Laguna ED Provider: Jacoby Bright Dx/Rx/DC Orders Clinical Impression: Viral syndrome Prescriptions: No Action insulin lispro [Humalog U-100 Insulin] 100 UNIT/ML solution 12 - 25 unit SQ TID Protocol: 4. Sliding Scale Insulin High-Med Dosing Condition: 150-199 mg/dl = 2 units Condition: 200-259 mg/dl = 4 units Condition: 260-324 mg/dl = 6 units Condition: 325-374 mg/dl = 8 units Condition: 375-409 mg/dl = 10 units Condition: 410-449 mg/dl = 11 units Condition: Greater than 449 call physician Protocol Text: - Use for Total Daily Dose of Insulin 56-80 units - Patient who are insulin resistant or septic HIGH MEDIUM DOSING ALGORITHM insulin degludec 100 UNIT/ML solution 65 unit SQ QHS Jardiance 25 mg tablet 25 mg PO DAILY Label Comments: TAKE 1 TABLET BY MOUTH EVERY DAY WITH BREAKFAST gabapentin 300 mg capsule 600 mg PO QHS (DME) FreeStyle Mague 2 [place] Misc MISCELLANEOUS Label Comments: USE TO CHECK BLOOD SUGAR AT LEAST FOUR (4) TIMES DAILY. Trulicity 1.5 mg/0.5 mL Pen Injector 1.5 mg SUBCUT QWEEK levofloxacin 500 mg Tablet 500 mg PO DAILY Digestive Probiotic 10 billion cell capsule 1 cap PO DAILY Qty: 30 0RF Primary Care Provider: Fernando Jenkins Referrals: Fernando Jenkins MD [Primary Care Provider] - 3-5 Days if not improving Activity Restrictions/Additional Instructions: Plenty of rest, drink plenty of fluids, you can take [id number] cold and flu medications for your symptoms. Return for any worsening of symptoms and follow-up with your PCP. Disposition Disposition: Home, Self Care Discharge Date/Time: 09/01/22 13:29
== END 2022-09-01 13:29 | disposition home or self-care (01) ==
PROVIDERS: Emergency Provider Emergency Medicine; PCP Family Medicine; Visit Provider Emergency Medicine
DX: B34.9 Viral infection, unspecified (principal); E11.40 Type 2 diabetes mellitus with diabetic neuropathy, unspecified; Z79.4 Long term (current) use of insulin; M79.89 Other specified soft tissue disorders; X50.9XXA Other and unspecified overexertion or strenuous movements or postures, initial encounter; Z79.85 Long-term (current) use of injectable non-insulin antidiabetic drugs
CPT/HCPCS: 87880; 99282

== ENCOUNTER 2022-09-19 09:45 | Outpatient (RCR) | payer MEDICAID, SELFPAY ==
[2022-09-08 01:06] VITALS: BP 151/87; PULSE 81; RESP 16; TEMP 35.9; BMI 34.5
[2022-09-12 09:40] VITALS: BP 141/84; PULSE 87; RESP 18; TEMP 36.6; BMI 34.5
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
[2022-09-19 09:55] VITALS: BP 150/79; PULSE 84; RESP 16; TEMP 36.2; BMI 34.5
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
--- NOTE | 2022-10-02 14:24 | WC ---
Spoke to patient concerning right great toe wound. Stated Dr. Sousa did an MRI of right great toe and was positive for osteomyelitis. She is scheduled for an amputation right great toe with Dr. Sousa on October 22, 2022. Will notify Mohini Vincent NP and discharge from wound center and transfer care to Dr. Sousa. Patient voiced understanding.
== END 2022-10-03 08:20 | disposition home or self-care (01) ==
LOC: WC 09:45
PROVIDERS: PCP Family Medicine; Referring Provider Physician Assistant; Visit Provider Nurse Practitioner
DX: E11.621 Type 2 diabetes mellitus with foot ulcer (principal); L97.512 Non-pressure chronic ulcer of other part of right foot with fat layer exposed; L97.511 Non-pressure chronic ulcer of other part of right foot limited to breakdown of skin; E11.42 Type 2 diabetes mellitus with diabetic polyneuropathy
CPT/HCPCS: 15275; Q4186

== ENCOUNTER 2022-10-07 11:15 | Emergency (ER) | payer MEDICAID, SELFPAY ==
[2022-10-07 11:16] VITALS: BP 166/90; PULSE 79; RESP 14; TEMP 35.9; O2SAT 100; BMI 51.2
--- NOTE | 2022-10-07 11:31 | EDS_ITS ---
HPI <MANUEL Marquez - Last Filed: 10/07/22 11:53> History of Present Illness Chief Complaint: General Illness Narrative Narrative: Patient is a 42-year-old female with history of neuropathy, diabetes, obesity who presents to the emergency department bilateral wrist pain, bilateral hand numbness. 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 Patient does mention that she is being worked up for carpal tunnel she has a nerve test on October 15, 2022. Patient was given a right wrist splint from urgent care however she states is not working. She is on meloxicam which is also not working. She denies any other injury. She is here for evaluation [facility] <MANUEL Marquez - Last Filed: 10/07/22 11:53> [facility] Medical History (Updated 10/07/22 @ 11:[address] Valery Bro MD) Diabetes Home Medications insulin lispro 100 unit/mL subcutaneous solution (Humalog U-100 Insulin) 12 - 25 unit SQ TID 08/26/18 [History Last Taken 05/20/22] insulin degludec 100 unit/mL subcutaneous solution 65 unit SQ QHS 08/17/20 [History Last Taken 05/20/22] empagliflozin 25 mg tablet (Jardiance) 25 mg PO DAILY 05/20/22 [History Last Taken 05/21/22] flash glucose scanning reader (FreeStyle [place] 2 [place]) 05/21/22 [History Last Taken Unknown] gabapentin 300 mg capsule 600 mg PO QHS 05/21/22 [History Last Taken 05/20/22] dulaglutide 1.5 mg/0.5 mL subcutaneous pen injector (Trulicity) 1.5 mg subcut QWEEK 06/15/22 [History Last Taken Unknown] Lactobacillus acidophilus-Bifidobac.animalis 10 billion cell capsule (Digestive Probiotic) 1 cap PO DAILY #30 caps 06/29/22 [Rx Last Taken Unknown] levofloxacin 500 mg tablet 500 mg PO DAILY 08/08/22 [History Last Taken Unknown] tramadol 100 mg tablet 100 mg PO TID PRN pain #20 tabs 10/07/22 [Rx Last Taken Unknown] Allergy/AdvReac Type Severity Reaction Status Date / Time Sulfa (Sulfonamide Allergy Hives Verified 10/07/22 11:16 Antibiotics) doxycycline AdvReac Rash Verified 10/07/22 11:16 Family History Father Diabetes Surgical History delivery delivered History of cholecystectomy Tubal ligation status Social History Smoking Status: Never smoker alcohol intake: never substance use type: does not use caffeine: Yes frequency: 3-4 times per week seatbelt use: always do you feel safe at home: Yes additional social history: - Unemployed ROS <MANUEL Marquez - Last Filed: 10/07/22 11:53> ROS ED ROS Narrative Constitutional: Negative for fever, chills, weight loss, weakness Eyes: Negative for vision loss, vision change, double vision ENT: Negative for any sore throat, ear pain, congestion Cardiovascular: Negative for any chest pain, tightness, palpitations Respiratory: Negative for any cough, sputum production, hemoptysis, dyspnea, dyspnea on exertion, orthopnea Gastrointestinal: Negative for any abdominal pain, nausea, vomiting, diarrhea, constipation, blood in stool, blood in vomit : Negative for any urinary frequency, dysuria, retention, blood in urine Muscle skeletal: Negative for any muscle joint pain, stiffness, myalgias, arthralgias, neck pain, back pain. Positive for bilateral hand pain, numbness and tingling Neurological: Negative for any headache, syncope, dizziness. Numbness and tingling to bilateral hands, wrists, fingers Skin: Negative for any rashes, lumps, itching, abrasions, lacerations Psychiatric: Negative for any depression, anxiety, stress, suicidal ideation, homicidal ideation Hematologic: Negative for any easy bruising, excessive bruising, easy bleeding Allergies: Negative for any eczema, hives, rash EXAM <MANUEL Marquez - Last Filed: 10/07/22 11:53> Physical Exam Narrative Exam Narrative: Vital signs reviewed. Extremities: No peripheral edema, no signs of gross trauma or deformity. Active full range of motion of all extremities. 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 Patient does have some injuries to her knuckles from work, these do look noninfectious however they are slow healing secondary to her diabetes. I did perform a balance test, this was positive. Patient was unable to do so for greater than 10 seconds because of the numbness. Patient's physical examination is consistent with carpal tunnel syndrome. There is no evidence of suspect any gout. No evidence suspect any cellulitis. Neuro: Cranial nerves II through XII intact, no focal neurological deficits. Skin: Clean dry and intact with no rash, purpura, petechiae, vesicles or pustules. Backs/flank: No CVA tenderness, no midline spinal tenderness, no deformity. Psych: Normal mood and affect. No SI, HI or acute psychosis. Const Vital Signs: 10/07/22 11:16 10/07/22 11:22 Temperature 96.7 F L Temperature Source Temporal Pulse Rate 79 Respiratory Rate 14 Respiratory Effort Short of Breath Blood Pressure 166/90 H Blood Pressure Mean 115 Pulse Ox 100 Oxygen Delivery Method Room Air Positive well nourished and well developed General Appearance ED: well developed <Dr. Valery Bro MD - Last Filed: 10/07/22 11:43> Physical Exam Const Vital Signs: 10/07/22 11:16 10/07/22 11:22 Temperature 96.7 F L Temperature Source Temporal Pulse Rate 79 Respiratory Rate 14 Respiratory Effort Short of Breath Blood Pressure 166/90 H Blood Pressure Mean 115 Pulse Ox 100 Oxygen Delivery Method Room Air MDM <MANUEL Marquez - Last Filed: 10/07/22 11:53> [facility] Narrative Medical decision making narrative: Patient appears generally well, patient appears nontoxic, vital signs are stable. Patient presents to the emergency department with 3 weeks of worsening hand pain, numbness, pain with movement. Physical examination was consistent with carpal tunnel syndrome. Differential diagnosis includes cellulitis, injury, gout. Patient's physical examination is consistent with carpal tunnel syndrome. She will follow-up with her nerve test. She will be given to cock-up wrist splints for comfort. She will be given a prescription for tramadol. She will continue her meloxicam. Patient is happy with the plan of care and is stable for discharge. All questions answered <Dr. Valery Bro MD - Last Filed: 10/07/22 11:43> [facility] Treatment and Re-Evaluation :: Patient seen and evaluated with JULIAN. I personally interviewed and examined the patient. I was involved in all aspects of patient's orders, interpretation of results, and treatment. Patient presents secondary to bilateral upper extremity pain and swelling. 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 She has pain to her bilateral wrists with tingling in her hands. She is currently on Mobic and is scheduled for nerve conduction testing on the eighth. She also takes gabapentin secondary to a history of diabetic neuropathy. Patient sitting upright in bed no acute distress. Head neck examination unremarkable. Heart is regular rate and rhythm. Lung sounds are clear. Abdomen is soft and nontender. Upper extremity examination reveals tenderness along the volar wrist bilaterally. She does have significant pain and tingling in her hands with extension or flexion of her wrist. Good cap refill is noted with normal sens ation in the fingertips. Patient has been diagnosed with carpal tunnel but has confirmatory nerve conduction testing scheduled next week. She is currently on Mobic. Given her history of diabetes we will avoid steroids at this time. She will be given a short course of tramadol and is placed in bilateral cock-up wrist splints. She will be given work restrictions. Position: Discharge Discharge Plan Triage Chief Complaint: General Illness ED Midlevel Provider: Rommel Pierce ED Provider: Valery Bro Dx/Rx/DC Orders Clinical Impression: Carpal tunnel syndrome Instructions: ED Carpal Tunnel Syndrome Prescriptions: New tramadol 100 mg tablet 100 mg PO TID PRN (Reason: pain) Qty: 20 0RF No Action insulin lispro [Humalog U-100 Insulin] 100 UNIT/ML solution 12 - 25 unit SQ TID Protocol: 4. Sliding Scale Insulin High-Med Dosing Condition: 150-199 mg/dl = 2 units Condition: 200-259 mg/dl = 4 units Condition: 260-324 mg/dl = 6 units Condition: 325-374 mg/dl = 8 units Condition: 375-409 mg/dl = 10 units Condition: 410-449 mg/dl = 11 units Condition: Greater than 449 call physician Protocol Text: - Use for Total Daily Dose of Insulin 56-80 units - Patient who are insulin resistant or septic HIGH MEDIUM DOSING ALGORITHM insulin degludec 100 UNIT/ML solution 65 unit SQ QHS Jardiance 25 mg tablet 25 mg PO DAILY Label Comments: TAKE 1 TABLET BY MOUTH EVERY DAY WITH BREAKFAST gabapentin 300 mg capsule 600 mg PO QHS (DME) FreeStyle Mague 2 [place] Misc MISCELLANEOUS Label Comments: USE TO CHECK BLOOD SUGAR AT LEAST FOUR (4) TIMES DAILY. Trulicity 1.5 mg/0.5 mL Pen Injector 1.5 mg SUBCUT QWEEK levofloxacin 500 mg Tablet 500 mg PO DAILY Digestive Probiotic 10 billion cell capsule 1 cap PO DAILY Qty: 30 0RF Stand Alone Forms: ED Work / School Excuse Primary Care Provider: Fernando Jenkins Referrals: Fernando Jenkins MD [Primary Care Provider] - Activity Restrictions/Additional Instructions: Follow-up for your nerve conduction testing next week as scheduled. Disposition Disposition: Home, Self Care
== END 2022-10-07 11:51 | disposition home or self-care (01) ==
LOC: ED 11:50
PROVIDERS: Emergency Provider Emergency Medicine; PCP Family Medicine; Visit Provider Emergency Medicine
DX: G56.03 Carpal tunnel syndrome, bilateral upper limbs (principal); E66.9 Obesity, unspecified
CPT/HCPCS: 99283

== ENCOUNTER → 2022-12-19 | Outpatient (CLI) | payer MEDICAID, SELFPAY ==
--- NOTE | 2022-12-19 11:08 | MRI_ITS ---
STUDY: MRI RIGHT FOREFOOT WITH AND WITHOUT CONTRAST REASON FOR EXAM: Female, 42 years old. OSTEOMYELITIS R TOE TECHNIQUE: Standardized fat and water weighted pulse sequences were obtained in all 3 orthogonal planes, post contrast administration. IV 20 ml CLARISCAN was administered for the contrast portion of the examination. COMPARISON: None. FINDINGS: There is mild degenerative arthrosis of the metatarsophalangeal joint of the hallux. Normal tibial and fibular sesamoids, with normal sesamoids-first metatarsal articulations. Normal interphalangeal joint of the hallux. Normal proximal phalanx of the great toe. There is marrow edema and enhancement of the tuft of the distal phalanx of the great toe, series 7 image 01/06. Normal medial and lateral heads of the flexor hallucis brevis tendons. Normal flexor and extensor hallucis longus tendons. Normal second through fifth metatarsophalangeal (MTP) joints. Normal interphalangeal joints of the second through fifth toes. Normal proximal, middle and distal phalanges of the second through fifth toes. Normal flexor and extensor tendons of the second through fifth toes. Normal first through fourth intermetatarsal spaces. Normal visualized metatarsi. Normal intrinsic muscles of the forefoot. There is no demonstrated soft tissue abnormality. MRI/Lower Ext No Joint W/WO Cont IMPRESSION: Osteomyelitis of the tuft of the first distal phalanx. Electronically Signed: Cullen Fink MD at 18:23 EDT ,
[2022-12-19 11:59] LABS: CREATININE FINGERSTICK < 0.9 mg/dL (0.55-1.02); EGFR FINGERSTICK > 60.0000 mL/min (>60)
== END | disposition home or self-care (01) ==
LOC: MRI 10:59
PROVIDERS: PCP Family Medicine; Referring Provider Internal Medicine Infectious Disease; Visit Provider Internal Medicine Infectious Disease
DX: M86.9 Osteomyelitis, unspecified (principal)
CPT/HCPCS: 73720; A9575

== ENCOUNTER 2022-12-21 18:30 | Emergency (ER) | payer MEDICAID, SELFPAY ==
[2022-12-21 18:31] VITALS: BP 142/102; PULSE 107; RESP 18; TEMP 37; O2SAT 97; BMI 33.9
--- NOTE | 2022-12-21 19:07 | EDS_ITS ---
HPI <HERLINDA Golden - Last Filed: 12/21/22 19:58> History of Present Illness Chief Complaint: Wound Narrative Narrative: 42-year-old female was wearing sandals when her right shoe fell off and she scraped her great toe on the concrete driveway. She states it was bleeding quite a bit but resolved with a bandage. 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 She states she just had an MRI but does not know the results. She is an insulin- dependent diabetic. Tetanus up-to-date in 2019. [facility] <HERLINDA Golden - Last Filed: 12/21/22 19:58> [facility] Medical History (Updated 12/21/22 @ 19:12 by HERLINDA Golden) Diabetes Home Medications insulin lispro 100 unit/mL subcutaneous solution (Humalog U-100 Insulin) 12 - 25 unit SQ TID 08/26/18 [History Last Taken 05/20/22] insulin degludec 100 unit/mL subcutaneous solution 65 unit SQ QHS 08/17/20 [History Last Taken 05/20/22] empagliflozin 25 mg tablet (Jardiance) 25 mg PO DAILY 05/20/22 [History Last Taken 05/21/22] flash glucose scanning reader (MDSaveStDodonation M[place] 2 [place]) 05/21/22 [History Last Taken Unknown] gabapentin 300 mg capsule 600 mg PO QHS 05/21/22 [History Last Taken 05/20/22] dulaglutide 1.5 mg/0.5 mL subcutaneous pen injector (Trulicity) 1.5 mg subcut QWEEK 06/15/22 [History Last Taken Unknown] Lactobacillus acidophilus-Bifidobac.animalis 10 billion cell capsule (Digestive Probiotic) 1 cap PO DAILY #30 caps 06/29/22 [Rx Last Taken Unknown] levofloxacin 500 mg tablet 500 mg PO DAILY 08/08/22 [History Last Taken Unknown] tramadol 100 mg tablet 100 mg PO TID PRN pain #20 tabs 10/07/22 [Rx Last Taken Unknown] Allergy/AdvReac Type Severity Reaction Status Date / Time Sulfa (Sulfonamide Allergy Hives Verified 12/21/22 18:33 Antibiotics) doxycycline AdvReac Rash Verified 12/21/22 18:33 Family History Father Diabetes Surgical History delivery delivered History of cholecystectomy Tubal ligation status Social History Smoking Status: Never smoker alcohol intake: never substance use type: does not use caffeine: Yes frequency: 3-4 times per week seatbelt use: always do you feel safe at home: Yes additional social history: - Unemployed ROS <HERLINDA Golden - Last Filed: 12/21/22 19:58> ROS ED ROS Narrative Constitutional: Negative for fever, chills, malaise. Neuro: Negative for motor/sensory dysfunction. Skin: Positive for wound. Musc: Negative for joint pain, swelling. EXAM <HERLINDA Golden - Last Filed: 12/21/22 19:58> Physical Exam Narrative Exam Narrative: CONST: Patient sitting in no acute distress. EYES: Normal inspection. NECK: Normal inspection. RESP: No respiratory distress, CTAB. CVS: Regular rate and rhythm, no murmur, no gallop. SKIN: 1 cm skin flap avulsion on the tip of the right great toe. No nail injury or subungual hematoma. No bleeding or foreign body. EXTREMITIES: No bony tenderness of the left foot or great toe, full ROM, chronic decree sensation from neuropathy, 2+ DP pulse. NEURO: Oriented x4. PSYCH: Normal affect. Const Vital Signs: 12/21/22 18:31 Temperature 98.6 F Temperature Source Temporal Pulse Rate 107 H Respiratory Rate 18 Blood Pressure 142/102 H Blood Pressure Mean 115 Pulse Ox 97 Oxygen Delivery Method Room Air <Dr. Ari Kruger MD - Last Filed: 12/21/22 23:45> Physical Exam Const Vital Signs: 12/21/22 18:31 Temperature 98.6 F Temperature Source Temporal Pulse Rate 107 H Respiratory Rate 18 Blood Pressure 142/102 H Blood Pressure Mean 115 Pulse Ox 97 Oxygen Delivery Method Room Air MDM <HERLINDA Golden - Last Filed: 12/21/22 19:58> MDM MDM Narrative Medical decision making narrative: Patient skinned her right great toe on the driveway and has a skin avulsion type flap on the tip of the toe. No nail injury. Neurovascularly intact. Wound was cleansed and dressed with bacitracin and bandage. There is no indication for suturing. Tetanus is up-to-date. With her history of diabetes and wound infections she needs to call her specialist on Saturday for follow-up. She was discharged in stable condition. Test considered: No indication for x-rays she has no bony tenderness <Dr. Ari Kruger MD - Last Filed: 12/21/22 23:45> [facility] Treatment and Re-Evaluation :: I have personally performed a face to face assessment of the patient and have reviewed the JULIAN Note. I performed a substantive portion of the visit including all aspects of the following. My [place] findings include: History: Patient is shoe came off and she scraped the tip of the great great toe on her driveway. This is a toe that she recently had ulcer and infection. There were concerns that she might have to have this removed. She is diabetic. But it been healing. She now scraped the tip off. She did not fall on it. There was some mild bleeding but that has stopped. Exam: She has a superficial avulsion of a small amount of tissue from the front of the toe. This is not a deep laceration. This is really just an epidermal removal. There is nothing that can be sutured. The toe is not red or swollen or deformed. Medical Decision Making: Plan will be appropriate dressing and close follow-up in wound center. Discharge Plan Triage Chief Complaint: Wound ED Midlevel Provider: Marissa Dowling ED Provider: Ari Kruger Dx/Rx/DC Orders Clinical Impression: Avulsion of skin of toe, History of diabetes mellitus, type II Instructions: ED Skin Avulsion Prescriptions: No Action insulin lispro [Humalog U-100 Insulin] 100 UNIT/ML solution 12 - 25 unit SQ TID Protocol: 4. Sliding Scale Insulin High-Med Dosing Condition: 150-199 mg/dl = 2 units Condition: 200-259 mg/dl = 4 units Condition: 260-324 mg/dl = 6 units Condition: 325-374 mg/dl = 8 units Condition: 375-409 mg/dl = 10 units Condition: 410-449 mg/dl = 11 units Condition: Greater than 449 call physician Protocol Text: - Use for Total Daily Dose of Insulin 56-80 units - Patient who are insulin resistant or septic HIGH MEDIUM DOSING ALGORITHM insulin degludec 100 UNIT/ML solution 65 unit SQ QHS Jardiance 25 mg tablet 25 mg PO DAILY Patient Comments: TAKE 1 TABLET BY MOUTH EVERY DAY WITH BREAKFAST gabapentin 300 mg capsule 600 mg PO QHS (DME) FreeStyle [place] 2 [place] Misc MISCELLANEOUS Patient Comments: USE TO CHECK BLOOD SUGAR AT LEAST FOUR (4) TIMES DAILY. Trulicity 1.5 mg/0.5 mL Pen Injector 1.5 mg SUBCUT QWEEK levofloxacin 500 mg Tablet 500 mg PO DAILY tramadol 100 mg tablet 100 mg PO TID PRN (Reason: pain) Qty: 20 0RF Digestive Probiotic 10 billion cell capsule 1 cap PO DAILY Qty: 30 0RF Primary Care Provider: Fernando Jenkins Referrals: Fernando Jenkins MD [Primary Care Provider] - Activity Restrictions/Additional Instructions: On Saturday please either call your human services program specialist or business systems architect to inform them that you have a new wound on your great toe that needs close follow-up. Disposition Disposition: Home, Self Care Discharge Date/Time: 12/21/22 20:17
== END 2022-12-21 20:17 | disposition home or self-care (01) ==
PROVIDERS: Emergency Provider Emergency Medicine; PCP Family Medicine; Visit Provider Emergency Medicine
DX: S91.101A Unspecified open wound of right great toe without damage to nail, initial encounter (principal); L97.519 Non-pressure chronic ulcer of other part of right foot with unspecified severity; W19.XXXA Unspecified fall, initial encounter
CPT/HCPCS: 99282